=== PATIENT | female | born 1950 | race Caucasian/White ===

== ENCOUNTER 2017-01-14 14:26 | Observation (INO) | payer MEDICARE, MEDICAID ==
[2017-01-14 15:36] LABS: #Basophils 0.1 thou/uL (0.0-0.2); #Eosinphils 0.2 thou/uL (0.0-0.7); #Lymphocytes 2.7 thou/uL (1.20-3.40); #Monocytes 0.4 thou/uL (0.11-0.59); #Neutrophils 5.3 thou/uL (1.40-6.50); %Basophils 0.9 % (0.0-1.0); %Eosinophils 2.4 % (0.0-10.0); %Lymphocytes 31.1 % (21.0-51.0); %Monocytes 4.7 % (0.0-10.0); Hematocrit 36.9 % (36.0-47.0); Mean Platelet Volume 6.7 fL (7.4-10.4); Red Blood Cell (RBC) Count 3.84 mill/uL (4.20-5.40); White Blood Cell (WBC) Count 8.7 thou/uL (4.8-10.8)
[2017-01-14 15:58] LABS: Bilirubin Negative (Negative); Blood, Urine Negative (Negative); Glucose, Urine (Dipstick) Negative (Negative); Ketone, Urine Negative (Negative); Nitrite Negative (Negative); Protein, Urine (Dipstick) Negative (Neg-Trace); Urobilinogen 0.2 mg/dL (0.2-1.0)
[2017-01-14 16:00] LABS: Bacteria/HPF 3+ HPF (None Seen); Hyaline Casts/LPF 0-3 HYALINE CAST LPF (0-3 Hyaline); Squamous Epithelial 0-3 HPF (0-3)
[2017-01-14 16:02] LABS: ALT (SGPT) 30 U/L (8-55); AST (SGOT) 20 U/L (5-34); Acetaminophen Less than 6.0 mcg/mL (10.0-30.0); Alkaline Phosphatase 258 U/L (40-150); Anion Gap 14 mmol/L (10-20); BUN (Urea Nitrogen) 10 mg/dL (9.8-20.1); Bilirubin, Total 0.2 mg/dL (0.2-1.2); CK (CPK) 104 U/L (29-168); Calc. Creatinine Clearance 0 mL/min (70-130); Calcium 9.3 mg/dL (7.8-10.44); Carbon Dioxide 21 mmol/L (23-31); Chloride 109 mmol/L (98-107); Estimated GFR-MDRD 65; Globulin 3.7 g/dL (2.4-3.5); Protein, Total 7.5 g/dL (6.0-8.3); Salicylate Less than 8.0 mg/dL (15.0-30.0)
[2017-01-14 16:04] LABS: RBC/HPF None Seen HPF (0-3)
[2017-01-14 16:08] LABS: Amphetamine Not Detected (NotDetected); Methadone Not Detected (NotDetected); Methamphetamine Not Detected (NotDetected)
[2017-01-15] MEDS ORDERED: PROVENTIL INHALER 6.7 G (200 INHALATIONS) INH PRN (00:52)
[2017-01-15] MEDS ORDERED: clonazePAM 0.5 MG TAB PO PRN (00:52)
[2017-01-15] MEDS ORDERED: Ibuprofen 600 MG TAB PO PRN (00:55)
[2017-01-15] MEDS ORDERED: Acetaminophen 325 MG TAB PO PRN (00:56)
[2017-01-15 01:22] VITALS: BMI 23.8
--- NOTE | 2017-01-15 02:32 | HP-2 ---
DATE OF SERVICE: 01/14/2017 COSIGNER: Ilsa Llamas M.D. DATE OF ADMISSION: 01/14/2017 CODE STATUS: FULL. PRIMARY CARE PHYSICIAN: Pedrito Esposito MD ATTENDING: Ilsa Llamas M.D. PGY1: Dr. Shelbi Crook. HISTORIAN: Patient. SPECIALIST: [facility]. CHIEF COMPLAINT: Drowsy/altered mental status. HISTORY OF PRESENT ILLNESS: A 66-year-old female with past medical history of Schizoaffective disor lata, who presents via EMS after she was difficult to arouse at her apartment at [place]. Earlier this afternoon, her friend, Jorge could not get her to wake up on her couch and called EMS. There was some concern for suicide attempt with clonazepam, but the patient states she was not trying to k ill herself. Patient states she just has felt sleepy over the past couple of days during the day. The patient denies fever or recent illness. The patient does endorse and some confusion with these episodes. The patient also endorses that she gets confused on what medications to take and is unsur e if she is taking the right types of medications. Patient's sister is Susie Gayle, phone numb er [phone]. PAST MEDICAL HISTORY: Schizoaffective disorder, heart failure, diastolic, osteoarthritis, COPD, fat ty liver disease, hypothyroidism, hypertension, gastroesophageal reflux disease. PAST SURGICAL HISTORY: Cholecystectomy, x2. ALLERGIES: PENICILLIN, XANAX, CHANTIX, SERTRALINE, RANITIDINE, DEPAKOTE, BUPROPION. MEDICATIONS: Ziprasidone 80 mg b.i.d., clonazepam 0.5 mg p.o. t.i.d., omeprazole 40 mg daily, gabap entin 100 mg t.i.d., amlodipine 5 mg p.o. daily, lisinopril 20 mg p.o. once daily, levothyroxine 125 mcg daily, fluoxetine 20 mg daily. FAMILY HISTORY: Noncontributory. SOCIAL HISTORY: Smokes 2-3 packs per day for the past 50 plus years over [id number] history. Den ies alcohol use, denies drug use. REVIEW OF SYSTEMS: General: Denies fevers and chills. Cardiovascular: Denies chest pain, palpita tions. GI: Denies nausea and vomiting. Endorses diarrhea. Genitourinary: Denies incontinence, d enies dysuria. Endorses polyuria. Neurologic: Denies weakness, numbness. Psychiatric: Currently , denies anxiety and depression. Denies SI. PHYSICAL EXAMINATION: VITAL SIGNS: Blood pressure 136/96. Pulse 81, respiratory rate 16, T-max 97.7, pulse ox 96% on marleni m air. GENERAL: Alert and oriented x3, in no apparent distress. Well-developed, well-nourished, appropria tely interactive. HEENT: Pupils equal, round, and reactive to light and accommodation. Extraocular muscles intact. Conjunctivae within normal limits. NECK: No lymphadenopathy, no thyromegaly, no bruits. CARDIOVASCULAR: Regular rate and rhythm. No murmurs, no gallops, 2+ radial and pedal pulses. RESPIRATORY: Normal effort, no retractions. Clear to auscultation bilaterally. SKIN: Warm and dry. ABDOMEN: Soft, nontender to palpation. Positive bowel sounds. No masses or distention. EXTREMITIES: No clubbing or cyanosis. MUSCULOSKELETAL: Structure within normal limits. NEUROLOGIC: No focal deficits. GCS 15. PSYCHIATRIC: Appropriate. LABORATORY DATA: CBC: White blood cell count 8.7, hemoglobin 12.3, hematocrit 36.9, platelets 282. CMP: Sodium 140, potassium 3.5, chloride 109, bicarbonate 21, BUN 10, creatinine 0.87, glucose 116, calcium 9.3, AST 20, ALT 30, alkaline phosphatase 258, total bilirubin 0.2, TSH 0.1524. UA positive for leukocyte esterase, white blood cells 4-6, bacteria 3+, negative for blood, protein, ketones, glucose, and red blood cells. CK 104. EKG, QTC 527. ASSESSMENT AND PLAN: A 66-year-old female with past medical history of schizoaffective disorder, ad mitted for observation due to toxic encephalopathy likely from antipsychotic medication versus polyp harmacy. We will watch the patient on observation. 1. Toxic encephalopathy secondary to antipsychotic medication likely ziprasidone versus polypharmac y. We will observation overnight. Plan to decrease the ziprasidone down to 60 mg in the morning an d keep the 80 mg at night. We will hold the quetiapine at this time. 2. Schizoaffective disorder. Ziprasidone as above, quetiapine held. We will continue the clonazep am 0.5 mg b.i.d. for patient's anxiety. 3. Iatrogenic hyperthyroidism. The patient is normally hypothyroid on 125 mcg of levothyroxine per day. Patient has a low TSH and as a result, we will decrease patient's levothyroxine to 112 mcg pe r day. 4. Anxiety. Continue fluoxetine 20 mg daily at this time and continue clonazepam 0.5 mg. We will decrease to b.i.d. at this time. 5. Chronic obstructive pulmonary disease. We will continue patient's home medications of albuterol and Spiriva. 6. Hypertension. We will continue patient's home medications of amlodipine 2.5 mg p.o. daily and L isinopril 20 mg daily. 7. Prolonged QTC. Patient is currently on antipsychotic medication, antidepressants, PPI, and albu terol, which all can prolong QTC. We will continue to monitor. PPI was held. The patient was not provided with antinausea medications p.r.n. such as Zofran, which can also prolong QTC. 8. Asymptomatic bacteriuria. The patient is not having symptoms. We will not treat with antibioti cs at this time. DISPOSITION AND LENGTH OF STAY: One day. Symptomatic medication will be provided. History and physical exam, as well as management, will be discussed with Dr. Llamas.
[2017-01-15 05:16] LABS: #Eosinphils 0.2 thou/uL (0.0-0.7); #Lymphocytes 1.8 thou/uL (1.20-3.40); #Monocytes 0.5 thou/uL (0.11-0.59); #Neutrophils 5.4 thou/uL (1.40-6.50); %Basophils 0.6 % (0.0-1.0); %Eosinophils 2.4 % (0.0-10.0); %Lymphocytes 23.1 % (21.0-51.0); %Monocytes 6.2 % (0.0-10.0); Hematocrit 38.5 % (36.0-47.0); Mean Platelet Volume 6.9 fL (7.4-10.4); Red Blood Cell (RBC) Count 3.99 mill/uL (4.20-5.40); White Blood Cell (WBC) Count 7.9 thou/uL (4.8-10.8)
[2017-01-15 05:22] VITALS: TEMP 98.6
[2017-01-15] MEDS ORDERED: Levothyroxine Sodium 112 MCG TAB PO SCH (06:00)
[2017-01-15 06:03] LABS: Anion Gap 12 mmol/L (10-20); BUN (Urea Nitrogen) 10 mg/dL (9.8-20.1); Calc. Creatinine Clearance 62 mL/min (70-130); Calcium 9.7 mg/dL (7.8-10.44); Carbon Dioxide 24 mmol/L (23-31); Chloride 106 mmol/L (98-107); Estimated GFR-MDRD 70
[2017-01-15] MEDS ORDERED: Ipratropium Bromide 2.5 ml Neb NEB SCH (07:00)
--- NOTE | 2017-01-15 07:14 | PDOC.FM ---
- Subjective Subjective: Patient is doing well this morning. She is AOx3 and seems to have a pretty good grasp of her medication use. Denies depression and SI. Reports that the last medication that was added to her regimen at [facility] in December was Topimax. States she has been on Geodon for years. Denies urgency, frequency, and dysuria. - Objective MAR Reviewed: Yes Vital Signs & Weight: Vital Signs (12 hours) Temp Pulse Resp BP Pulse Ox 01/15/17 04:46 98.6 F 76 18 138/83 94 L 01/15/17 01: 98.4 F 78 16 152/69 H 95 Weight Weight 59.148 kg I&O: 01/14/17 01/15/17 01/16/17 06:59 06:59 06:59 Intake Total 720 Output Total 400 Balance 320 Result Diagrams: 01/15/17 04:51 01/15/17 04:51 <Maria De Jesus Moore - Last Filed: 01/15/17 07:13> - Objective Vital Signs & Weight: Vital Signs (12 hours) Temp Pulse Resp BP Pulse Ox 01/15/17 08:39 98.6 F 84 16 01/15/17 08:09 84 16 01/15/17 07:37 98.6 F 77 16 141/88 H 95 01/15/17 04:46 98.6 F 76 18 138/83 94 L Weight Weight 59.148 kg I&O: 01/14/17 01/15/17 01/16/17 06:59 06:59 06:59 Intake Total 720 Output Total 400 Balance 320 Result Diagrams: 01/15/17 04:51 01/15/17 04:51 <Ilsa Llamas - Last Filed: 01/15/17 14:35> Phys Exam - Physical Examination Constitutional: NAD HEENT: PERRLA, moist MMs Neck: no nodes no thyromegaly distant lung sounds Cardiovascular: RRR, no significant murmur Gastrointestinal: soft, non-tender, no distention, positive bowel sounds Musculoskeletal: no edema, pulses present Neurological: non-focal, moves all 4 limbs Psychiatric: A&O x 3 <Maria De Jesus Moore - Last Filed: 01/15/17 07:13> Dx/Plan (1) Polypharmacy Code(s): Z79.899 - OTHER [employer] (CURRENT) DRUG THERAPY Status: Acute (2) Schizoaffective disorder Code(s): F25.9 - SCHIZOAFFECTIVE DISORDER, UNSPECIFIED Status: Chronic Qualifiers: Schizoaffective disorder type: bipolar Qualified Code(s): F25.0 - Schizoaffective disorder, bipolar type (3) Hypothyroidism Code(s): E03.9 - HYPOTHYROIDISM, UNSPECIFIED Status: Chronic (4) Elevated liver enzymes Code(s): R74.8 - ABNORMAL LEVELS OF OTHER SERUM ENZYMES Status: Acute (5) Urinary tract infection Status: Acute (6) COPD (chronic obstructive pulmonary disease) Status: Acute (7) Hypertension Code(s): I10 - ESSENTIAL (PRIMARY) HYPERTENSION Status: Acute - Plan Plan: Toxic Encephalopathy 2/2 Polypharmacy - likely due to the added medication Topimax, will discontinue this medication - decreased Klonipin to BID dosing - Geodon 60mg AM, and 80mg PM - Continue Fluoxetine - Hold quetiapine until confirmed med reconciliation - Will coordinate with [facility] to have her seen in 1 week for follow up after discharge - Patient stable, likely d/c today after medications have been adjusted with close f/u Schizoaffective DO - Continue regimen as discussed above Hypothyroidism - TSH was low, have decreased levothyroxine to 112mcg - will need repeat TSH in 8 weeks Hypertension - continue home Lisinopril and Amlodipine COPD - continue home meds UTI - asymptomatic, urine culture pending - will hold off on treatment for now and wait for culture GERD - home meds OA - home meds <Maria De Jesus Moore - Last Filed: 01/15/17 07:13> Attending Addendum - Attending Addendum I personally evaluated the patient and discussed the management with Dr. Moore. I agree with the History, Examination, Assessment and Plan documented above with any addition or exceptions noted below. The patient is doing better this morning after sleeping overnight and holding some of her psych meds. She will be discharged and f/u with [facility] for adjustment of medications. <Ilsa Llamas - Last Filed: 01/15/17 14:35>
[2017-01-15 07:45] VITALS: BP 141/88
[2017-01-15] MEDS ORDERED: Folic Acid 1 MG TAB PO SCH (09:00)
[2017-01-15] MEDS ORDERED: Calcium Carbonate + Vit D 1 TAB PO SCH (09:00)
[2017-01-15] MEDS ORDERED: Lisinopril 20 MG TAB PO SCH (09:00)
--- NOTE | 2017-01-15 19:32 | HP ---
DATE OF SERVICE: 01/15/2017 CHIEF COMPLAINT: Altered mental status, drowsy. HISTORY OF PRESENT ILLNESS: The patient is a 66-year-old female with a past medical histo ry of schizoaffective disorder, who presented to the ER after a friend had difficulty trying to arou se her at her [place] apartment. At first, there was a concern for suicide attempt, but the patie nt notes that that is not what happened. The patient stated that she has been having difficulty sle eping and she has been taking all of her medications that are prescribed through [facility], but some of t hem make her sleepy during the day, which makes it difficult for her to sleep at night. She states her whole sleep-wake cycle is affected. The patient had some confusion when she first arrived, and it is still unclear if she is taking her medications as prescribed. Overnight, the patient was able to rest some. She is alert and oriented x4 at this time and is feeling back to her baseline. For the full history of the patient, please see the resident's dictation. PHYSICAL EXAMINATION: VITAL SIGNS: Temperature 98.6, pulse 77, respiration rate 16, O2 sat 95% on room air, blood pressur e 141/88. GENERAL: The patient is awake, alert, and oriented x4, and in no acute distress. HEENT: Oropharynx and nasopharynx are without erythema or exudate. NECK: Supple without lymphadenopathy, thyromegaly, or bruits. EYES: Pupils are equal, round, reactive to light and accommodation. Extraocular muscles intact. CARDIOVASCULAR: Regular rate and rhythm without murmurs, gallops, or rubs. LUNGS: Clear to auscultation bilaterally without no wheezing or rhonchi. ABDOMEN: Soft, nontender, nondistended with bowel sounds present. EXTREMITIES: There is no clubbing, cyanosis, or edema. MUSCULOSKELETAL: Patient has full range of motion of all extremities. Muscle strength is 5/5. NEUROLOGIC: Cranial nerves II-XII are grossly intact. PSYCHIATRIC: The patient does exhibit some tangential thought processes, but is able to be redirect ed, and for the most part, answers questions appropriately. LABORATORY: 1. CBC: WBC 7.9, hemoglobin 12.9, hematocrit 38.5, platelet count 287. 2. BMP: Sodium 138, potassium 3.6, chloride 106, bicarbonate 24, BUN 10, creatinine 0.81, glucose 97, calcium 9.7. 3. TSH 0.1524. 4. Urinalysis significant for small leukocyte esterase, white blood cells 4-6, bacteria 3+. 5. UDS negative, SDS negative. 6. EKG shows prolonged QTC of 527. ASSESSMENT AND PLAN: 1. Toxic encephalopathy: This is likely secondary to all of her many antipsychotic medications. W steve will try to cut back some of these medications to decrease her somnolence. She will also need to follow up with [facility] as an outpatient. 2. Schizoaffective disorder: Ziprasidone has been decreased and Seroquel is being held. Patient h as displayed some anxiety here, so the clonazepam is being continued for the time being. 3. Iatrogenic hyperthyroidism: Patient historically has hypothyroidism. However, with her low TSH , it appears that she is taking too much thyroid medication. We will decrease her dose. 4. Anxiety as mentioned above. 5. Prolonged QTC: We are adjusting the patient's antipsychotic medications to try to help with thi s. Her PPI will also be held. 6. Asymptomatic bacteriuria: Though the patient has bacteria in her urine, she denies any burning with urination, any increased urinary frequency or urgency or hematuria. Therefore, we will not beau at with antibiotics. 6. Please see the resident's dictation for the full history, physical, assessment and plan.
--- NOTE | 2017-01-15 19:40 | DIS-2 ---
DATE OF ADMISSION: 01/14/2017 DATE OF DISCHARGE: 01/15/2017 RESIDENT: Maria De Jesus Moore DO. ADMITTING ATTENDING: Ilsa Llamas M.D. DISCHARGE ATTENDING: Ilsa Llamas M.D. CONSULTATIONS: None. PROCEDURES: None. PRIMARY DIAGNOSIS: Toxic encephalopathy secondary to likely polypharmacy versus drug side effects. SECONDARY DIAGNOSES: 1. Schizoaffective disorder. 2. Hypothyroidism. 3. Anxiety. 4. Chronic obstructive pulmonary disease. 5. Hypertension. 6. Asymptomatic bacteriuria. DISCHARGE MEDICATIONS: 1. Ibuprofen 800 mg p.o. q.8 hours p.r.n. pain. 2. Tylenol with codeine #3 one tablet p.o. q.8 hours p.r.n. pain. 3. Spiriva inhaler 18 mcg inhaled daily. 4. MiraLax 17 grams p.o. daily. 5. Prozac 20 mg p.o. daily. 6. Calcium supplement 1 tablet p.o. daily. 7. Amlodipine 2.5 mg p.o. daily. 8. Omeprazole 40 mg p.o. daily. 9. Gabapentin 100 mg p.o. t.i.d. 10. Folic acid 1 mg p.o. daily. 11. Albuterol 2.5 mg nebulized q.4 hours p.r.n. 12. ProAir 2 puffs inhaled q.4 hours p.r.n. shortness of breath. 13. Clonazepam 0.5 mg p.o. b.i.d. 14. Geodon 60 mg p.o. q.a.m. and 80 mg p.o. at bedtime. 15. Levothyroxine sodium 112 mcg p.o. q.a.m. DISCONTINUED MEDICATIONS: 1. Geodon 80 mg p.o. b.i.d. 2. Levothyroxine sodium 125 mcg p.o. daily. 3. Topamax 200 mg p.o. at bedtime. 4. Clonazepam 0.5mg p.o. t.i.d HISTORY OF PRESENT ILLNESS AND HOSPITAL COURSE: The patient is a 66-year-old female with known schizoaffective disorder, who presented via EMS after she was difficult to arouse at her apartment at [place]. There was initial concern for suicide attempt with clonazepam, but patient denied and reports she had just felt very sleepy over the past couple of days during the day. The patient admits to getting confused on what medications to take and is unsure of what medications she is supposed to be on for her schizoaffective disorder. The patient sees [facility]. Dr. Villalba and reports her last visit in December, she was given Topamax. She states she has been on Geodon for quite sometime and has not had any side effects. It was thought that her sleepiness could be due to polypharmacy or a side effect of Topamax. Topamax was discontinued and to minimize risk of polypharmacy, medications were adjusted including Geodon 60 mg in the morning and 80 mg at night and clonazepam twice daily instead of 3 times a day. The patient was alert and oriented x3 and had logical thought process, although occasionally did have far-out thoughts. The patient was also found to have a low TSH at 0.1524, so her levothyroxine was adjusted to 112 mcg instead of the 125 mcg. The patient is to follow up closely with [facility] for medication management and with her PCP, Dr. Pedrito Esposito at [facility] to assess symptoms on new thyroid dosage and repeat TSH in 8 weeks. DISPOSITION: Stable. DISCHARGE INSTRUCTIONS: 1. Location: Home. 2. Diet: Regular. 3. Activity: As tolerated. 4. Followup: With Dr. Pedrito Esposito in 1 week and , Dr. Villalba in 1 week. [facility]
--- NOTE | 2017-01-21 12:13 | EKG ---
Test Reason : Blood Pressure : / mmHG Vent. Rate : 069 BPM Atrial Rate : 069 BPM P-R Int : 162 ms QRS Dur : 078 ms QT Int : 492 ms P-R-T Axes : 037 -06 044 degrees QTc Int : 527 ms Normal sinus rhythm Nonspecific T wave abnormality Prolonged QT Nonspecific ST-T segment abnormalities Abnormal ECG Confirmed by OSWALDO BOLTON ([id number]), restaurant expeditor GOGO WILSON ([id number]) on 01/21/2017 12:12:43 PM Referred By: Confirmed By:OSWALDO BOLTON
== END 2017-01-15 12:29 | disposition home or self-care (01) ==
LOC: ERS 14:26 → 2SW 01-15 00:20
PROVIDERS: ADMIT Family Medicine; ATTEND Family Medicine
DX: G92 Toxic encephalopathy (principal); R82.71 Bacteriuria; F25.9 Schizoaffective disorder, unspecified; F41.9 Anxiety disorder, unspecified; E03.9 Hypothyroidism, unspecified; J44.9 Chronic obstructive pulmonary disease, unspecified; F17.210 Nicotine dependence, cigarettes, uncomplicated; I50.30 Unspecified diastolic (congestive) heart failure; M19.90 Unspecified osteoarthritis, unspecified site; K21.9 Gastro-esophageal reflux disease without esophagitis; I11.0 Hypertensive heart disease with heart failure; Z88.0 Allergy status to penicillin; Z88.8 Allergy status to other drugs, medicaments and biological substances; Z79.1 Long term (current) use of non-steroidal anti-inflammatories (NSAID); Z79.891 Long term (current) use of opiate analgesic; Z79.899 Other long term (current) drug therapy; Z90.49 Acquired absence of other specified parts of digestive tract; Z98.891 History of uterine scar from previous surgery
CPT/HCPCS: 51701; 80048; 80306; 80307 ×2; 82550; 85025; 87086; 93005; 94640; 99285; G0378; 36415; 80053; 81003; 81015; 84443; A4353; J7644

== ENCOUNTER 2017-01-25 22:32 | Emergency (ER) | payer MEDICARE, OTHER ==
[2017-01-25] MEDS ORDERED: Nitroglycerin 2% Ointment 1 INCH/1 GM Packet ONE (22:54)
[2017-01-25 23:03] LABS: #Basophils 0.1 thou/uL (0.0-0.2); #Eosinphils 0.2 thou/uL (0.0-0.7); #Lymphocytes 2.6 thou/uL (1.20-3.40); #Monocytes 0.6 thou/uL (0.11-0.59); #Neutrophils 5.5 thou/uL (1.40-6.50); %Basophils 0.7 % (0.0-1.0); %Eosinophils 2.4 % (0.0-10.0); %Lymphocytes 28.7 % (21.0-51.0); %Monocytes 6.6 % (0.0-10.0); Hematocrit 34.9 % (36.0-47.0); Mean Platelet Volume 6.7 fL (7.4-10.4)
--- NOTE | 2017-01-25 23:06 | RAD ---
PORTABLE AP CHEST X-RAY 01/25/17 HISTORY: Chest pain which started less than 30 minutes ago. Patient states it felt like someone was squeezing chest. Pain lasted for five minutes. Patient also reports shortness of breath and nausea. COMPARISON: 09/23/16. The cardiac silhouette and pulmonary vasculature are within normal limits. There is ectasia and tort uosity of the thoracic aorta. There is left convexed curvature of the thoracic spine. Lungs appear c lear. There has been no interval change from prior study. IMPRESSION: Stable chest without evidence of an acute cardiopulmonary process. POS: [facility]
[2017-01-25 23:24] LABS: ALT (SGPT) 32 U/L (8-55); AST (SGOT) 20 U/L (5-34); Alkaline Phosphatase 246 U/L (40-150); Anion Gap 14 mmol/L (10-20); BUN (Urea Nitrogen) 9 mg/dL (9.8-20.1); Bilirubin, Total 0.2 mg/dL (0.2-1.2); CK (CPK) 148 U/L (29-168); Calc. Creatinine Clearance 0 mL/min (70-130); Calcium 9.5 mg/dL (7.8-10.44); Carbon Dioxide 24 mmol/L (23-31); Chloride 103 mmol/L (98-107); Estimated GFR-MDRD 58; Globulin 3.7 g/dL (2.4-3.5); Lipase 14 U/L (8-78); Protein, Total 7.5 g/dL (6.0-8.3)
[2017-01-25 23:28] LABS: Troponin I Less than 0.010 ng/mL (< 0.028)
== END 2017-01-26 01:15 | disposition short-term general hospital (02) ==
LOC: ERS 22:32
DX: R07.9 Chest pain, unspecified (principal); I10 Essential (primary) hypertension; J43.9 Emphysema, unspecified; M41.9 Scoliosis, unspecified; F41.9 Anxiety disorder, unspecified; F31.9 Bipolar disorder, unspecified; F17.290 Nicotine dependence, other tobacco product, uncomplicated; Z79.899 Other long term (current) drug therapy
CPT/HCPCS: 71010; 80053; 82553; 83690; 84484; 85025; 93005; 94760

== ENCOUNTER 2017-02-01 20:00 | Emergency (ER) | payer MEDICARE, OTHER ==
[2017-02-01 21:02] LABS: Bilirubin Negative (Negative); Blood, Urine Negative (Negative); Glucose, Urine (Dipstick) Negative (Negative); Ketone, Urine Negative (Negative); Nitrite Negative (Negative); Protein, Urine (Dipstick) Negative (Neg-Trace); Urobilinogen 0.2 mg/dL (0.2-1.0)
[2017-02-01 21:09] LABS: #Basophils 0.1 thou/uL (0.0-0.2); #Eosinphils 0.3 thou/uL (0.0-0.7); #Lymphocytes 3.1 thou/uL (1.20-3.40); #Monocytes 0.7 thou/uL (0.11-0.59); #Neutrophils 4.5 thou/uL (1.40-6.50); %Basophils 1.1 % (0.0-1.0); %Eosinophils 3.2 % (0.0-10.0); %Lymphocytes 35.8 % (21.0-51.0); %Monocytes 7.9 % (0.0-10.0); Hematocrit 35.2 % (36.0-47.0); Mean Platelet Volume 6.8 fL (7.4-10.4); Red Blood Cell (RBC) Count 3.65 mill/uL (4.20-5.40); White Blood Cell (WBC) Count 8.6 thou/uL (4.8-10.8)
[2017-02-01 21:09] LABS: Bacteria/HPF None Seen HPF (None Seen); Hyaline Casts/LPF 0-3 HYALINE CAST LPF (0-3 Hyaline); Squamous Epithelial 0-3 HPF (0-3)
[2017-02-01 21:34] LABS: ALT (SGPT) 20 U/L (8-55); AST (SGOT) 18 U/L (5-34); Alkaline Phosphatase 245 U/L (40-150); Anion Gap 13 mmol/L (10-20); BUN (Urea Nitrogen) 12 mg/dL (9.8-20.1); Bilirubin, Total 0.3 mg/dL (0.2-1.2); Calc. Creatinine Clearance 0 mL/min (70-130); Calcium 9.7 mg/dL (7.8-10.44); Carbon Dioxide 26 mmol/L (23-31); Chloride 102 mmol/L (98-107); Estimated GFR-MDRD 64; Globulin 4.1 g/dL (2.4-3.5); Lipase 22 U/L (8-78); Protein, Total 8.2 g/dL (6.0-8.3)
--- NOTE | 2017-02-01 22:36 | RAD ---
CHEST ONE VIEW ABDOMEN TWO VIEWS 02/01/17 HISTORY: Abdominal pain. FINDINGS/IMPRESSION: Comparison made with the chest radiograph of 01/25/17. The heart size is borderline. The aorta is tortuous. The lungs are expanded without focal areas of c onsolidation, pneumothorax, leona pulmonary edema, or pleural effusions. There are postop changes o f cholecystectomy. No free air or differential fluid levels are seen. The bowel gas pattern is unrem arkable. There is fecal material in the colon. No suspicious calcifications are noted. There are deg enerative changes in the spine. POS: [facility]
== END 2017-02-01 23:18 | disposition home or self-care (01) ==
LOC: ERS 20:00
DX: M79.89 Other specified soft tissue disorders (principal); I10 Essential (primary) hypertension; J44.9 Chronic obstructive pulmonary disease, unspecified; M41.9 Scoliosis, unspecified; F41.9 Anxiety disorder, unspecified; F31.9 Bipolar disorder, unspecified; Z87.891 Personal history of nicotine dependence
CPT/HCPCS: 36415; 74022; 80053; 81003; 81015; 83690; 85025

== ENCOUNTER 2017-02-28 10:40 | Emergency (ER) | payer MEDICARE, OTHER ==
--- NOTE | 2017-02-28 12:17 | RAD ---
PORTABLE CHEST: 02/28/2017 PROVIDED CLINICAL HISTORY: Dyspnea. COMPARISON: 01/25/2017 FINDINGS: The cardiac and mediastinal silhouette are unchanged in appearance. No focal consolidation, pleural fluid, or pneumothorax apparent. IMPRESSION: No evidence for an acute cardiopulmonary process. POS: [facility]
[2017-02-28 12:20] LABS: Bilirubin Negative (Negative); Blood, Urine Negative (Negative); Glucose, Urine (Dipstick) Negative (Negative); Ketone, Urine Negative (Negative); Nitrite Negative (Negative); Protein, Urine (Dipstick) Negative (Neg-Trace); Urobilinogen 0.2 mg/dL (0.2-1.0)
[2017-02-28 12:46] LABS: #Eosinphils 0.1 thou/uL (0.0-0.7); #Lymphocytes 2.5 thou/uL (1.20-3.40); #Monocytes 0.7 thou/uL (0.11-0.59); #Neutrophils 6.4 thou/uL (1.40-6.50); %Basophils 0.5 % (0.0-1.0); %Eosinophils 1.4 % (0.0-10.0); %Lymphocytes 25.9 % (21.0-51.0); %Monocytes 6.8 % (0.0-10.0); Hematocrit 32.2 % (36.0-47.0); Mean Platelet Volume 6.7 fL (7.4-10.4); White Blood Cell (WBC) Count 9.7 thou/uL (4.8-10.8)
[2017-02-28 13:04] LABS: ALT (SGPT) 21 U/L (8-55); AST (SGOT) 23 U/L (5-34); Alkaline Phosphatase 184 U/L (40-150); Anion Gap 13 mmol/L (10-20); BUN (Urea Nitrogen) 9 mg/dL (9.8-20.1); Bilirubin, Total 0.2 mg/dL (0.2-1.2); Calc. Creatinine Clearance 0 mL/min (70-130); Calcium 9.3 mg/dL (7.8-10.44); Carbon Dioxide 24 mmol/L (23-31); Chloride 103 mmol/L (98-107); Estimated GFR-MDRD 70; Globulin 3.5 g/dL (2.4-3.5); Protein, Total 7.2 g/dL (6.0-8.3)
--- NOTE | 2017-02-28 13:38 | CT ---
CT ABDOMEN AND PELVIS PERFORMED WITH CONTRAST ENHANCEMENT: HISTORY: Abdominal pain. Intermittent rectal bleeding for two to three months. Pain over lower abdomen. Hi story of hepatitis C. Completed recent course of antibiotics for UTI. COMPARISON: CT examination from 03/03/2015. FINDINGS: ABDOMEN: The lung bases show chronic appearing change. There are fatty changes of the liver. The liver measures approximately 17 cm. The spleen and pancr eas regions appear unremarkable. The gallbladder has been removed. The right and left adrenal glands are normal in appearance. There are hypodensities involving both kidneys, which are similar to the previous exam and appear to represent cysts. No obstruction. No significant periaortic or mesenteric lymphadenopathy. PELVIS: Sigmoid diverticulosis is noted. There is some dilatation of some of the small bowel of th e more distal ileum, with fecalization of the bowel contents and, just distal to this area, the smal l bowel shows an area of some mild bowel wall thickening and edema. This is proximal to the actual terminal ileum region. No free air. No signs of any portal venous gas. The appendix is normal in appearance. No free fluid is seen within the pelvis. The bladder is distended. IMPRESSION: Focally dilated area of small bowel. This is in the distal ileum. there is fecalization of bowel c ontents and, just distal to this area, there is bowel wall thickening or edema. This is not truly a t the level of the terminal ileum. It raises the possibility of an ileitis. The possibility that t here is some type of ischemic bowel change cannot be definitely excluded. An inflammatory ileitis, such as seen Crohns, would be a possibility. The findings were discussed with Dr. Lomax. 2. Sigmoid diverticulosis. 3. Fatty changes of the liver. 4. Small hiatal hernia. 5. Chronic lung change. POS: [facility]
== END 2017-02-28 15:10 | disposition home or self-care (01) ==
LOC: ERS 10:40
DX: K62.5 Hemorrhage of anus and rectum (principal); I10 Essential (primary) hypertension; K21.9 Gastro-esophageal reflux disease without esophagitis; J44.9 Chronic obstructive pulmonary disease, unspecified; F31.9 Bipolar disorder, unspecified; F41.9 Anxiety disorder, unspecified; Z87.891 Personal history of nicotine dependence; Z79.899 Other long term (current) drug therapy
CPT/HCPCS: 71010; 74177; 80053; 81003; 82274; 85025; 86850; 86900; 86901; 94640; 94760; A4353; J7620

== ENCOUNTER 2017-02-28 18:35 | Emergency (ER) | payer MEDICARE, OTHER | END 2017-02-28 20:08 | disposition home or self-care (01) | LOC: ERS 18:35 | DX: R10.30 Lower abdominal pain, unspecified (principal); K21.9 Gastro-esophageal reflux disease without esophagitis; I10 Essential (primary) hypertension; J44.9 Chronic obstructive pulmonary disease, unspecified; M41.9 Scoliosis, unspecified; F41.9 Anxiety disorder, unspecified; F31.9 Bipolar disorder, unspecified; Z87.891 Personal history of nicotine dependence | CPT/HCPCS: 36415; 51701; 71010; 74177; 80053; 81003; 82274; 85025; 86850; 86900; 86901; 94640; 94760; 96360; 99284; A4353; J7620 ==

== ENCOUNTER 2017-04-27 13:03 | Emergency (ER) | payer MEDICARE, MEDICAID ==
[2017-04-27 13:31] LABS: #Basophils 0.1 thou/uL (0.0-0.2); #Eosinphils 0.1 thou/uL (0.0-0.7); #Lymphocytes 2.2 thou/uL (1.20-3.40); #Monocytes 0.5 thou/uL (0.11-0.59); #Neutrophils 6.7 thou/uL (1.40-6.50); %Basophils 0.9 % (0.0-1.0); %Eosinophils 1.1 % (0.0-10.0); %Lymphocytes 22.6 % (21.0-51.0); %Monocytes 5.6 % (0.0-10.0); %Neutrophils 69.8 % (42.0-75.0); Hemoglobin 10.4 g/dL (12.0-16.0); Mean Corpuscular HGB CONC 32.9 g/dL (32.0-36.0); Mean Corpuscular Hemoglobin 30.4 pg (27.0-31.0); Mean Corpuscular Volume 92.4 fl (81.0-99.0); Mean Platelet Volume 6.6 fL (7.4-10.4); Platelet Count 367 thou/uL (130-400); RBC Distribution Width 13.9 % (11.5-14.5); Red Blood Cell (RBC) Count 3.41 mill/uL (4.20-5.40); White Blood Cell (WBC) Count 9.6 thou/uL (4.8-10.8)
--- NOTE | 2017-04-27 13:52 | RAD ---
PORTABLE CHEST: Date: 04/27/17 PROVIDED CLINICAL HISTORY: Cough. FINDINGS: Comparison with 02/28/17. Cardiac and mediastinal silhouette is within normal limits. Lungs are free of significant opacity. No pleural fluid or pneumothorax apparent. IMPRESSION: No evidence for acute cardiopulmonary process. POS: [facility]
[2017-04-27 14:05] LABS: ALT (SGPT) 26 U/L (8-55); AST (SGOT) 26 U/L (5-34); Albumin 3.5 g/dL (3.4-4.8); Alkaline Phosphatase 276 U/L (40-150); Anion Gap 12 mmol/L (10-20); BUN (Urea Nitrogen) 14 mg/dL (9.8-20.1); Bilirubin, Total 0.3 mg/dL (0.2-1.2); CK (CPK) 49 U/L (29-168); Calc. Creatinine Clearance 0 mL/min (70-130); Carbon Dioxide 24 mmol/L (23-31); Chloride 101 mmol/L (98-107); Estimated GFR-MDRD 55; Globulin 3.6 g/dL (2.4-3.5); Glucose 179 mg/dL (80-115); Lipase 12 U/L (8-78); Potassium 3.3 mmol/L (3.5-5.1); Protein, Total 7.1 g/dL (6.0-8.3); Sodium 134 mmol/L (136-145)
[2017-04-27 14:06] LABS: Troponin I Less than 0.010 ng/mL (< 0.028)
[2017-04-27 14:37] LABS: Clarity Clear (Clear); Specific Gravity, Urine 1.015 (1.002-1.036)
[2017-04-27 14:38] LABS: Bilirubin Negative (Negative); Blood, Urine Negative (Negative); Glucose, Urine (Dipstick) Negative (Negative); Leukocyte Negative (Negative); Nitrite Negative (Negative); Protein, Urine (Dipstick) Negative (Neg-Trace); Urobilinogen 0.2 mg/dL (0.2-1.0); pH, Urine 6.5 (5.0-9.0)
== END 2017-04-27 16:00 | disposition home or self-care (01) ==
LOC: ERS 13:03
DX: R53.1 Weakness (principal); K21.9 Gastro-esophageal reflux disease without esophagitis; I10 Essential (primary) hypertension; Z87.891 Personal history of nicotine dependence; Z79.899 Other long term (current) drug therapy
CPT/HCPCS: 51701; 71045; 80053; 81003; 82553; 83690; 84484; 85025; 93005; 96360; A4353

== ENCOUNTER 2017-05-15 23:04 | Inpatient (IN) | payer MEDICARE, OTHER ==
--- NOTE | 2017-05-15 23:43 | RAD ---
PORTABLE CHEST: Comparison: 04-27-17 FINDINGS: Heart size is within normal limits. There are atherosclerotic changes of the aorta. The lungs are seth ar of any infiltrative process. IMPRESSION: No active intrathoracic disease. POS: [facility]
[2017-05-15] MEDS ORDERED: methylPREDNISolone Sod Succ/PF 125 MG/2 ML VIAL ONE (23:46)
[2017-05-16 00:13] LABS: #Eosinphils 0.2 thou/uL (0.0-0.7); #Lymphocytes 2.5 thou/uL (1.20-3.40); #Monocytes 0.6 thou/uL (0.11-0.59); #Neutrophils 5.6 thou/uL (1.40-6.50); %Basophils 0.5 % (0.0-1.0); %Lymphocytes 28.4 % (21.0-51.0); %Monocytes 7.1 % (0.0-10.0); %Neutrophils 62.1 % (42.0-75.0); Hemoglobin 10.2 g/dL (12.0-16.0); Mean Corpuscular HGB CONC 33.9 g/dL (32.0-36.0); Mean Corpuscular Hemoglobin 30.3 pg (27.0-31.0); Mean Corpuscular Volume 89.4 fl (81.0-99.0); Mean Platelet Volume 6.5 fL (7.4-10.4); Platelet Count 330 thou/uL (130-400); RBC Distribution Width 14.3 % (11.5-14.5); Red Blood Cell (RBC) Count 3.37 mill/uL (4.20-5.40); White Blood Cell (WBC) Count 8.9 thou/uL (4.8-10.8)
[2017-05-16 00:19] LABS: Prothrombin Time 12.7 SEC (12.0-14.7)
[2017-05-16 00:20] LABS: D-Dimer Test 0.79 *mcg/mL (0.27-0.43)
[2017-05-16 00:36] LABS: ALT (SGPT) 25 U/L (8-55); AST (SGOT) 22 U/L (5-34); Albumin 4.1 g/dL (3.4-4.8); Alkaline Phosphatase 275 U/L (40-150); Anion Gap 13 mmol/L (10-20); BUN (Urea Nitrogen) 9 mg/dL (9.8-20.1); Bilirubin, Total 0.2 mg/dL (0.2-1.2); Calc. Creatinine Clearance 0 mL/min (70-130); Calcium 10.1 mg/dL (7.8-10.44); Carbon Dioxide 29 mmol/L (23-31); Chloride 95 mmol/L (98-107); Estimated GFR-MDRD 60; Glucose 126 mg/dL (80-115); Magnesium 1.8 mg/dL (1.6-2.6); Protein, Total 8.1 g/dL (6.0-8.3); Sodium 134 mmol/L (136-145)
[2017-05-16 00:41] LABS: CKMB 2.5 ng/mL (0-6.6); Troponin I Less than 0.010 ng/mL (< 0.028)
[2017-05-16 00:42] LABS: Potassium 2.9 mmol/L (3.5-5.1)
[2017-05-16] MEDS ORDERED: Ondansetron HCl/PF 4 MG/2 ML Vial ONE (02:18)
[2017-05-16] MEDS ORDERED: Potassium Chloride 20 MEQ TAB ONE (02:18)
[2017-05-16] MEDS ORDERED: Ondansetron ODT 4 MG TAB PO PRN (03:06)
[2017-05-16] MEDS ORDERED: Mag-Al 1200 mg/1200 mg/30 ML UDCUP PO PRN (03:06)
[2017-05-16] MEDS ORDERED: Acetaminophen 325 MG TAB PO PRN (03:06)
[2017-05-16] MEDS ORDERED: Milk Of Magnesia 30 ML UDCUP PO PRN (03:09)
[2017-05-16] MEDS ORDERED: Albuterol Sulfate 2.5 mg/3 ml Neb NEB PRN (03:09)
[2017-05-16] MEDS ORDERED: PROVENTIL INHALER 6.7 G (200 INHALATIONS) INH PRN (03:27)
[2017-05-16] MEDS ORDERED: clonazePAM 0.5 MG TAB PO PRN (03:27)
[2017-05-16 04:11] LABS: Lactic Acid 3.5 mmol/L (0.5-2.2)
[2017-05-16 04:12] VITALS: BMI 22.8
[2017-05-16 04:14] LABS: Anion Gap 13 mmol/L (10-20); BUN (Urea Nitrogen) 9 mg/dL (9.8-20.1); Band 6 % (5-11); Calc. Creatinine Clearance 61 mL/min (70-130); Calcium 9.6 mg/dL (7.8-10.44); Carbon Dioxide 25 mmol/L (23-31); Chloride 98 mmol/L (98-107); Estimated GFR-MDRD 73; Glucose 210 mg/dL (80-115); Hemoglobin 10.1 g/dL (12.0-16.0); Lymphocytes 5 % (21-51); MDiff Complete? YES; Mean Corpuscular Hemoglobin 29.7 pg (27.0-31.0); Mean Platelet Volume 6.5 fL (7.4-10.4); Monocytes 2 % (0-10); Neutrophil 87 % (42-75); PLT Morphology Comment Appears Adequate; Platelet Count 303 thou/uL (130-400); Potassium 3.4 mmol/L (3.5-5.1); RBC Distribution Width 14.4 % (11.5-14.5); Sodium 133 mmol/L (136-145); White Blood Cell (WBC) Count 7.9 thou/uL (4.8-10.8)
[2017-05-16] MEDS ORDERED: Potassium Chloride 20 MEQ TAB PO SCH (04:30)
[2017-05-16] MEDS: Levothyroxine Sodium 112 MCG TAB PO SCH (05:40)
[2017-05-16] MEDS ORDERED: Spiriva 18 MCG CAP (Box of 5 Caps) INH SCH (07:00)
--- NOTE | 2017-05-16 07:55 | RAD ---
RIGHT KNEE FOUR VIEWS: History: Right knee pain. FINDINGS: No fracture, dislocation, or bony destruction. No joint effusion is identified. No significant osteop hytosis is noted. POS: [facility]
--- NOTE | 2017-05-16 08:31 | CT ---
PRELIMINARY REPORT/[facility]/EMERGENCY AFTER HOURS PROCEDURE: EXAM: CT Angiography Chest With Intravenous Contrast CLINICAL HISTORY: 67 years old, female; Signs and symptoms; Cough; Symptoms not specified; Patient HX: F67 presents to the ed C/O a severe cough that causes her to have difficulty breathing. Pt states that she came to ed because the cough became unbearable. Pt denies any measured fever. Pt also reports blood clots in antoinette ngs in 2010. Pt states that she thinks she might have pneumonia because she went "outside in the rain without a jacket a few days ago. ". Pt has HX of smoking, emphysema, and copd. TECHNIQUE: Axial computed tomographic angiography images of the chest with intravenous contrast using pulmonary embolism protocol. COMPARISON: No relevant prior studies available. FINDINGS: Pulmonary arteries: No pulmonary embolism. Aorta: Mild atherosclerotic disease of the thoracic aorta without aneurysm or dissection. Lungs: Mild bilateral upper and lower lobe bronchial wall thickening, compatible with reactive diseas e or bronchitis. Linear atelectasis and/or scarring within the left lower lung. Minimal upper lobe predominant centrilobular emphysema. Pleural space: Normal. No significant effusion. No pneumothorax. Heart: Normal. Mediastinum: Small-sized hiatal hernia. Bones/joints: Multilevel thoracic spine changes. No acute fracture. No dislocation. Soft tissues: Normal. Lymph nodes: Normal. Gallbladder and bile ducts: Gallbladder is surgically absent. IMPRESSION: 1. No pulmonary embolism. 2. Mild bilateral upper and lower lobe bronchial wall thickening, compatible with reactive disease or bronchitis. 3. Incidental/non-acute findings are described above. Thank you for allowing us to participate in the care of your patient. Dictated and Authenticated by: Ishmael Sampson MD 05/16/2017 1:59 AM Central Time ([place] & [place]) FINAL REPORT CT PULMONARY ANGIOGRAM WITH CONTRAST AND 3D POSTPROCESSING: I agree with the preliminary report given by Dr. Ishmael Sampson of [facility]. POS: [facility]
--- NOTE | 2017-05-16 09:19 | HP-2 ---
CODE STATUS: DNR. PRIMARY CARE PHYSICIAN: Dr. Esposito ATTENDING Dr. Alexandru Scott RESIDENT: Dr. Shelbi Crook HISTORIAN: Patient. CHIEF COMPLAINT: Shortness of breath. HISTORY OF PRESENT ILLNESS: This is a 67-year-old female with a past medical history of COPD who complains of coughing and shortness of breath for the past several days. She also endorses sputum/mucus production that is thick when she coughs. She endorses chills. Endorses diarrhea. Denies nausea and vomiting, also endorses bright red blood per rectum. She feels this is due to her hemorrhoids. She went to the [facility] yesterday morning for similar symptoms, was diagnosed with a viral URI and was given cough medicine that upon going to the pharmacy to hop picker her cough medicine she decided it was not strong enough and came to the ER for a stronger cough medicine. Once present in the ER, she was found to be hypoxic of 86% on room air. She also complains of right knee pain as well. In the ER, she received 40 mg KCl, 3 mL of DuoNeb, 100 mL normal saline, Levaquin 750 mg IV, and 125 mg of prednisone. PAST MEDICAL HISTORY: 1. Hypertension. 2. Hypothyroidism. 3. Chronic obstructive pulmonary disease. 4. Schizoaffective disorder. 5. Diastolic congestive heart failure. PAST SURGICAL HISTORY: 1. Small bowel resection. 2. Cholecystectomy. 3. x2. 4. MRCP . ALLERGIES: 1. PCN. 2. XANAX. 3. CHANTIX. MEDICATIONS: 1. Amlodipine 2.5 mg daily. 2. Levothyroxine 112 mcg daily. 3. Topamax 200 mg at bedtime. 4. Spiriva daily. 5. Geodon 80 mg b.i.d. 6. Prozac 20 mg daily. 7. MiraLax p.r.n. 8. Clonazepam 0.5 mg t.i.d. p.r.n. 9. Gabapentin 100 mg t.i.d. 10. Omeprazole 40 mg daily. 11. Albuterol p.r.n. SOCIAL HISTORY: Former tobacco user of 1 pack per day. Denies alcohol or drug use. REVIEW OF SYSTEMS: GENERAL: Endorses fevers and chills. HEENT: Denies nasal congestion, rhinorrhea, or sore throat. RESPIRATORY: Endorses cough, shortness of breath, and mucus production with her cough, that is thick. CARDIOVASCULAR: Denies chest pain, palpitations. GI: Denies nausea, vomiting. Endorses diarrhea, also endorsed bright red blood per rectum. Endorses having hemorrhoids. SKIN: Denies rashes or lesions. MUSCULOSKELETAL: Denies pain or tenderness. NEUROLOGIC: Denies weakness, numbness. PSYCHIATRIC: Denies anxiety, depression. PHYSICAL EXAMINATION: VITAL SIGNS: Blood pressure 142/80, pulse 95, respiratory rate 20, T-max 98.7, pulse ox 86% on room air, current weight 56 kilograms. GENERAL: Alert and oriented x4, no apparent distress. Appropriately interactive. EYES: Pupils equal, round, and reactive to light and accommodation. Extraocular muscles intact. ENT: Nasal mucosa within normal limits. Oropharynx within normal limits. NECK: Supple, no lymphadenopathy or thyromegaly. CARDIOVASCULAR: Regular rate and rhythm. No murmurs, rubs or gallops. LUNGS: Normal effort, no retractions, clear to auscultation bilaterally. ABDOMEN: Soft, nontender to palpation. Positive bowel sounds in all 4 quadrants. RECTAL: Within normal limits. No blood. Normal tone, no masses or strictures. Peripheral external hemorrhoids present, not inflamed. MUSCULOSKELETAL: Structure within normal limits. NEUROLOGIC: No focal deficits. GCS 15. PSYCHIATRIC: Appropriate. LABORATORY DATA: CBC: 8.9, 10.2, 30.1, 330. CMP; 134 2.9, 95, 29, 9.93, 26 GFR 60. AST, ALT, alkaline phosphorus; 22, 25, 275. Calcium 2.1, total protein 8.1, albumin 4.1, total bilirubin 0.2. Lactic acid 2.1. D-dimer 0.79, magnesium 1.8. Flu A and B negative. PT 12.7, PTT 31, INR 1. Chest x-ray within normal limits. ASSESSMENT AND PLAN: This is a 67-year-old female with a past medical history of chronic obstructive pulmonary disease who presents with cough and shortness of breath, admitted for acute hypoxic respiratory failure secondary to chronic obstructive pulmonary disease exacerbation. 1. Acute hypoxic respiratory failure secondary to chronic obstructive pulmonary disease exacerbation. The patient was placed on prednisone 40 mg daily, and Levaquin 500 mg daily. She was admitted to medical, was provided with DuoNebs q.4h. scheduled. She is also requiring 2-3 liters of oxygen and she may likely need oxygen at home as she might be chronically hypoxic. We will also provide albuterol p.r.n. and placed on Dulera daily which is the pharmacy equivalent here for Spiriva. 2. Chronic obstructive pulmonary disease exacerbation, see above. 3. Diastolic congestive heart failure. We restarted her home medications. 4. Hypothyroidism. We restarted her levothyroxine 112 mcg per day. 5. Hypertension. We restarted the amlodipine 2.5 mg daily. 6. Gastroesophageal reflux disease. We restarted her Omeprazole 40 mg daily. 7. Schizoaffective disorder. We restarted her Geodon 80 mg b.i.d. and clonazepam 0.5 mg t.i.d. p.r.n., and Prozac 20 mg daily. She also takes Topamax 200 mg at bedtime. 8. Bright red blood per rectum. Rectal exam was within normal limits other than positive external hemorrhoids. We ordered an FOBT. She does have a mild normocytic anemia. 9. Normocytic anemia with an MCV of 89, likely anemia of chronic disease. Continue to monitor. 10. Hypokalemia, replace her potassium as it was 2.9. DISPOSITION/LENGTH OF HOSPITAL STAY: 2 days. Symptomatic medication will be provided. History and physical exam as well as management discussed with Dr. Scott. ANDREE
[2017-05-16] MEDS: predniSONE 20 MG TAB PO SCH (09:20)
[2017-05-16] MEDS: Enoxaparin Sodium 40 MG/0.4 ML SYRINGE SC SCH (09:20)
[2017-05-16] MEDS: Polyethylene Glycol 3350 17 GM Packet PO SCH (09:20)
[2017-05-16] MEDS: Amlodipine 5 MG TAB PO SCH (09:20)
[2017-05-16] MEDS: FLUoxetine HCl 20 MG CAP PO SCH (09:21)
[2017-05-16] MEDS: Calcium Carbonate + Vit D 1 TAB PO SCH (09:21)
[2017-05-16] MEDS: Folic Acid 1 MG TAB PO SCH (09:21)
[2017-05-16] MEDS: Gabapentin 100 MG CAP PO SCH ×3 (09:21→20:37)
[2017-05-16 10:28] LABS: Actual Bicarbonate (HCO3a) 24.7 mEq/L (22-26); Base Excess (BEa) -1.1 mEq/L (0 (+/-) 2.5); CO2 Tension 46.3 mmHg (35.0-45.0); Hematocrit-ABG 36.8 % (36.0-47.0); Hemoglobin (Hb) 10.6 g/dL (12.0-16.0); O2 Tension (PaO2) 61.5 mmHg (80.0-100.0); pH, Arterial 7.35 (7.35-7.45)
[2017-05-16 10:29] LABS: ALV-art Gradient 30.355 (0-20); Calcium, Ionized 1.2 mmol/L (1.12-1.30); Puncture Site RRA
[2017-05-16] MEDS: Sodium Chloride 0.9% 1,000 ML IV SCH ×2 (10:54→23:11)
[2017-05-16] MEDS ORDERED: Sodium Chloride 0.9% 1,000 ML IV SCH (11:15)
[2017-05-16] MEDS ORDERED: ISOVUE-370 76%-LOCM 1 ML ONE (12:26)
--- NOTE | 2017-05-16 12:53 | PDOC.EVN ---
Attending Addendum - Attending Addendum I personally evaluated the patient and discussed the management with Dr. Joan Crook. I agree with the History, Examination, Assessment and Plan documented in her H& P with any addition or exceptions noted below. Patient is 67 yo female with history of COPD, Scizoaffective d/o presenting with worsening cough and shortness of breath. She has been seen in our clinic recently without improvement in symptoms. In ER, she was noted to be hypoxic to mid 80s on room air. She complains of new cough and shortness of breath. CTA and CXR do not reveal pathology. She does not appear to have infection. Based on history and exam, she will be treated for COPD acute on chronic with hypoxia. Steroids, Levaquin, and fluids. Her lactate has trended up, though she does not appear critically ill and her ABG is reassuring. Will begin fluid bolus and fluids and trend. Consider medication effect. Hypokalemia will be repleted. Anticipate 1-2 day hospitalization as she has quickly improved and is interested in going home already.
[2017-05-16 13:29] LABS: Lactic Acid 4.8 mmol/L (0.5-2.2)
[2017-05-16 19:03] LABS: Lactic Acid 3.6 mmol/L (0.5-2.2)
[2017-05-16] MEDS: Guaifenesin DM 100-10/5 ML UDCUP PO PRN (20:52)
[2017-05-17] MEDS: Guaifenesin DM 100-10/5 ML UDCUP PO PRN ×3 (00:43→10:37)
[2017-05-17] MEDS: Levothyroxine Sodium 112 MCG TAB PO SCH (04:34)
[2017-05-17 05:03] LABS: #Basophils 0.1 thou/uL (0.0-0.2); #Lymphocytes 2.2 thou/uL (1.20-3.40); #Monocytes 0.9 thou/uL (0.11-0.59); #Neutrophils 7.4 thou/uL (1.40-6.50); %Basophils 0.5 % (0.0-1.0); %Eosinophils 0.3 % (0.0-10.0); %Monocytes 8.2 % (0.0-10.0); %Neutrophils 70.1 % (42.0-75.0); Hemoglobin 8.5 g/dL (12.0-16.0); Mean Corpuscular HGB CONC 31.6 g/dL (32.0-36.0); Mean Corpuscular Hemoglobin 28.7 pg (27.0-31.0); Mean Corpuscular Volume 90.9 fl (81.0-99.0); Platelet Count 296 thou/uL (130-400); RBC Distribution Width 14.7 % (11.5-14.5); Red Blood Cell (RBC) Count 2.94 mill/uL (4.20-5.40); White Blood Cell (WBC) Count 10.5 thou/uL (4.8-10.8)
[2017-05-17 05:16] LABS: Anion Gap 10 mmol/L (10-20); BUN (Urea Nitrogen) 7 mg/dL (9.8-20.1); Calc. Creatinine Clearance 69 mL/min (70-130); Calcium 9.1 mg/dL (7.8-10.44); Carbon Dioxide 29 mmol/L (23-31); Chloride 100 mmol/L (98-107); Estimated GFR-MDRD 84; Glucose 92 mg/dL (80-115); Potassium 4.5 mmol/L (3.5-5.1); Sodium 134 mmol/L (136-145)
[2017-05-17] MEDS ORDERED: FLU VACC TS2017-18 (>65YR) 0.5 ML SYRINGE IM ONE (09:00)
--- NOTE | 2017-05-17 09:08 | PDOC.FM ---
- Subjective Subjective: Patient feeling better this morning and requesting to go home. She has not been wearing o2. No acute events overnight and has no complaints this AM. She states she does not intend to smoke anymore. - Objective MAR Reviewed: Yes Vital Signs & Weight: Vital Signs (12 hours) Temp Pulse Resp BP Pulse Ox 05/17/17 07:18 100 18 92 L 05/17/17 07:07 98.4 F 90 16 155/96 H 91 L 05/17/17 04:08 103 H 18 90 L 05/17/17 00:59 98.0 F 97 20 119/75 92 L Weight Weight 56.699 kg I&O: 05/16/17 05/17/17 05/18/17 06:59 06:59 06:59 Intake Total 780 Balance 780 Result Diagrams: 05/17/17 03:57 05/17/17 03:57 <Kami Porras - Last Filed: 05/17/17 09:14> - Objective Vital Signs & Weight: Vital Signs (12 hours) Temp Pulse Resp BP BP Pulse Ox 05/17/17 11:33 98.5 F 96 16 165/96 H 95 05/17/17 10:06 95 16 93 L 05/17/17 09:58 100 05/17/17 08:00 98.4 F 90 16 91 L 05/17/17 07:18 100 18 92 L 05/17/17 07:07 98.4 F 90 16 155/96 H 91 L 05/17/17 04:08 103 H 18 90 L 05/17/17 00:59 98.0 F 97 20 119/75 92 L Weight Weight 56.699 kg I&O: 05/16/17 05/17/17 05/18/17 06:59 06:59 06:59 Intake Total 780 480 Balance 780 480 Result Diagrams: 05/17/17 03:57 05/17/17 03:57 <Alexandru cSott - Last Filed: 05/17/17 12:16> Phys Exam - Physical Examination Constitutional: NAD HEENT: moist MMs Respiratory: no wheezing, no rales, no rhonchi, clear to auscultation bilateral Cardiovascular: RRR, no significant murmur Gastrointestinal: soft, non-tender, positive bowel sounds Musculoskeletal: no edema Neurological: non-focal, normal sensation, moves all 4 limbs Psychiatric: normal affect, A&O x 3 Skin: cap refill <2 seconds <Kami Porras - Last Filed: 05/17/17 09:14> Dx/Plan (1) COPD with acute exacerbation Code(s): J44.1 - CHRONIC OBSTRUCTIVE PULMONARY DISEASE W (ACUTE) EXACERBATION Status: Acute Plan: Improved with nebs, steroids, and 1 dose levaquin. Likely can be discharged today with additional 6 days of levaquin and 4 days of prednisone. F/U outpt next week. (2) Acute respiratory failure with hypoxia Code(s): J96.01 - ACUTE RESPIRATORY FAILURE WITH HYPOXIA Status: Resolved (3) BRBPR (bright red blood per rectum) Code(s): K62.5 - HEMORRHAGE OF ANUS AND RECTUM Status: Acute Plan: She is set up to have colonoscopy with Dr. Ovalle. drop in hgb from 10.1 to 8.5, however no c/o leona blood. She did receive 3 lts NS, may be dilutional. IV fluids ceased. May consider repeat hgb prior to DC. (4) Hypertension Code(s): I10 - ESSENTIAL (PRIMARY) HYPERTENSION Status: Acute Plan: controlled. cont home meds. (5) Hypothyroidism Code(s): E03.9 - HYPOTHYROIDISM, UNSPECIFIED Status: Chronic (6) Schizoaffective disorder Code(s): F25.9 - SCHIZOAFFECTIVE DISORDER, UNSPECIFIED Status: Chronic QualifierTitle: Schizoaffective disorder type: bipolar Qualified Code(s) : F25.0 - Schizoaffective disorder, bipolar type Plan: cont home meds. <Kami Porras - Last Filed: 05/17/17 09:14> Attending Addendum - Attending Addendum I personally evaluated the patient and discussed the management with Dr. Porras. I agree with the History, Examination, Assessment and Plan documented above with any addition or exceptions noted below. Patient feeling well this morning. She has been weaned off O2 and feels ready to go home. Labs stable. Mild decrease in Hgb is likely dilutional in nature and she is scheduled with surgery in near future for colonoscopy. Lactate is downtrending. Uncertain etiology, though we have excluded acidosis, acidemia, hypoxia, and other serious causes. Advise short term follow up in our clinic for repeat lab draw. Consider medication effect. <Alexandru Scott - Last Filed: 05/17/17 12:16>
[2017-05-17 09:49] LABS: Lactic Acid 2.9 mmol/L (0.5-2.2)
[2017-05-17] MEDS: Folic Acid 1 MG TAB PO SCH (09:58)
[2017-05-17] MEDS: predniSONE 20 MG TAB PO SCH (09:58)
[2017-05-17] MEDS: Gabapentin 100 MG CAP PO SCH (09:58)
[2017-05-17] MEDS: Amlodipine 5 MG TAB PO SCH (09:58)
[2017-05-17] MEDS: Calcium Carbonate + Vit D 1 TAB PO SCH (09:58)
[2017-05-17] MEDS: FLUoxetine HCl 20 MG CAP PO SCH (09:58)
[2017-05-17] MEDS: Enoxaparin Sodium 40 MG/0.4 ML SYRINGE SC SCH (10:00)
[2017-05-17] MEDS: Polyethylene Glycol 3350 17 GM Packet PO SCH (10:00)
[2017-05-17 11:35] VITALS: BP 165/96; TEMP 98.5
--- NOTE | 2017-05-19 19:46 | DIS-2 ---
DATE OF ADMISSION: 05/16/2017 DATE OF DISCHARGE: 05/17/2017 ADMITTING RESIDENT: Shelbi Astorga M.D. DISCHARGE RESIDENT: Kami Nuñez M.D. CONSULTATIONS: None. PROCEDURES: None. IMAGIN. Chest x-ray showed no active intrathoracic disease. 2. Chest thorax CTA showed no pulmonary embolism, mild bilateral upper and lower lobe bronchial wall thickening, compatible with reactive airway disease or bronchitis. 3. Knee x-ray showed no fracture, dislocation or bony destruction. No joint effusion identified. N o significant abnormality. PRIMARY DIAGNOSES: 1. Acute chronic obstructive pulmonary disease exacerbation. 2. Acute hypoxic respiratory failure. 3. Bright red blood per rectum. 4. Hypokalemia. 5. Normocytic anemia. SECONDARY DIAGNOSES: 1. Diastolic congestive heart failure. 2. Hypothyroidism. 3. Hypertension. 4. Gastroesophageal reflux disease. 5. Schizoaffective disorder. DISCHARGE MEDICATIONS: 1. Albuterol sulfate 2.5 mg nebulized q.4 hours p.r.n. shortness of breath or wheezing. 2. ProAir 2 puffs inhaled q.4 hours p.r.n. shortness of breath or wheezing. 3. Amlodipine 2.5 mg p.o. daily. 4. Clonazepam 0.5 mg p.o. b.i.d. p.r.n. anxiety or agitation. 5. Prozac 20 mg p.o. daily. 6. Folic acid 1 mg p.o. daily. 7. Gabapentin 100 mg p.o. t.i.d. 8. Levaquin 500 mg p.o. daily for 5 days. 9. Synthroid 112 mcg p.o. daily. 10. Omeprazole 40 mg p.o. daily. 11. MiraLax 17 grams p.o. daily. 12. Prednisone 40 mg p.o. daily for 3 days. 13. Spiriva HandiHaler 18 mcg inhaled daily. 14. Ziprasidone 80 mg p.o. at bedtime. DISCONTINUED MEDICATIONS: None. HISTORY OF PRESENT ILLNESS AND HOSPITAL COURSE: This is a 67-year-old female with past medical histo ry of COPD, who presented complaining of cough, shortness of breath for the past several days as well as sputum production when she coughs. The patient was found to be hypoxic to 86% on room air. That came up easily with nasal cannula. The patient was thought to be in a COPD exacerbation and she was treated accordingly with Levaquin, prednisone, DuoNebs, as well as her home inhalers. The patient w as on oxygen, but was able to be weaned off after the first day of hospitalization. The patient also noted that she had bright red blood per rectum. However, upon further evaluation, the patient infor med us that she had known hemorrhoids and was already set up with a general surgeon in this area for a colonoscopy and possible hemorrhoidectomy as well in the next few weeks. The patient also had an e levated lactic acid that trended up, the highest it got was 4.9, and then down trended after receivin g fluids. This was likely secondary to decreased oxygen levels. There was no sign of infection. Th e patient had an initial potassium of 2.9 and this was repleted, her potassium on discharge was 4.5. The patient throughout her hospitalization remained stable and her respiratory status improved very quickly with treatment with the steroids and breathing treatments. She was discharged with 5-day cou rse total of Levaquin as well as 5-day course of prednisone and discharged with all of her home inhal ers. She was encouraged to continue her follow up appointments with the general surgeon. DISPOSITION: Stable. DISCHARGE INSTRUCTIONS: 1. Location: Home. 2. Diet: Regular. 3. Activity: As tolerated. 4. Followup: Follow up with [facility] within 1-2 weeks.
== END 2017-05-17 13:44 | disposition home or self-care (01) | DRG 189 ==
LOC: ERS 23:04 → T4-A 05-16 03:12
PROVIDERS: ADMIT Family Medicine; ATTEND Family Medicine
DX: J96.01 Acute respiratory failure with hypoxia (principal); I11.0 Hypertensive heart disease with heart failure; F25.9 Schizoaffective disorder, unspecified; I50.32 Chronic diastolic (congestive) heart failure; J44.1 Chronic obstructive pulmonary disease with (acute) exacerbation; K62.5 Hemorrhage of anus and rectum; E03.9 Hypothyroidism, unspecified; K21.9 Gastro-esophageal reflux disease without esophagitis; E87.6 Hypokalemia; Z87.891 Personal history of nicotine dependence; D64.9 Anemia, unspecified
CPT/HCPCS: 36415; 71045; 71275; 80048; 80053; 82550; 82553; 82805; 83605; 83735; 84145; 84484; 85025; 85379; 85610; 85730; 94640; 96365; 96375; 99406; J1650; J1956; J2405; J2930; J7506; J7620

== ENCOUNTER 2017-05-30 07:58 | Outpatient (CLI) | payer MEDICARE, MEDICAID ==
[2017-05-30 09:57] LABS: #Basophils 0.1 thou/uL (0.0-0.2); #Eosinphils 0.2 thou/uL (0.0-0.7); #Lymphocytes 2.1 thou/uL (1.20-3.40); #Monocytes 0.6 thou/uL (0.11-0.59); #Neutrophils 5.9 thou/uL (1.40-6.50); %Basophils 0.9 % (0.0-1.0); %Eosinophils 2.5 % (0.0-10.0); %Lymphocytes 23.9 % (21.0-51.0); %Monocytes 6.3 % (0.0-10.0); %Neutrophils 66.5 % (42.0-75.0); Hemoglobin 10.1 g/dL (12.0-16.0); Mean Corpuscular HGB CONC 31.3 g/dL (32.0-36.0); Mean Corpuscular Hemoglobin 27.6 pg (27.0-31.0); Mean Corpuscular Volume 88.2 fl (81.0-99.0); Mean Platelet Volume 6.5 fL (7.4-10.4); Platelet Count 368 thou/uL (130-400); Red Blood Cell (RBC) Count 3.67 mill/uL (4.20-5.40); White Blood Cell (WBC) Count 8.8 thou/uL (4.8-10.8)
[2017-05-30 10:06] LABS: Prothrombin Time 12.8 SEC (12.0-14.7)
[2017-05-30 10:07] LABS: PTT 31.1 SEC (22.9-36.1)
[2017-05-30 10:18] LABS: Anion Gap 7 mmol/L (10-20); BUN (Urea Nitrogen) 13 mg/dL (9.8-20.1); Calc. Creatinine Clearance 0 mL/min (70-130); Carbon Dioxide 26 mmol/L (23-31); Chloride 98 mmol/L (98-107); Estimated GFR-MDRD 71; Glucose 101 mg/dL (80-115); Potassium 3.8 mmol/L (3.5-5.1); Sodium 127 mmol/L (136-145)
[2017-05-30 13:29] LABS: Bilirubin Negative (Negative); Blood, Urine Negative (Negative); Clarity CLEAR (Clear); Glucose, Urine (Dipstick) Negative (Negative); Leukocyte Moderate (Negative); Nitrite Negative (Negative); Protein, Urine (Dipstick) Negative (Neg-Trace); Specific Gravity, Urine 1.008 (1.002-1.036); Urobilinogen 0.2 mg/dL (0.2-1.0)
[2017-05-30 13:35] LABS: Bacteria/HPF Rare-Few HPF (None Seen); Hyaline Casts/LPF 0-3 HYALINE CAST LPF (0-3 Hyaline); Pathc Cast-AUWi Flag 0.27 (0-2.49); RBC/HPF 0-3 HPF (0-3); Squamous Epithelial 0-3 HPF (0-3)
== END 2017-05-30 07:59 | disposition home or self-care (01) ==
LOC: LABBT 07:58
PROVIDERS: ATTEND Orthopaedic Surgery
DX: Z01.818 Encounter for other preprocedural examination (principal); M17.12 Unilateral primary osteoarthritis, left knee
CPT/HCPCS: 80048; 81001; 85025; 85610; 85730; 86850; 86900; 86901; 93005; 93010

== ENCOUNTER 2017-06-06 05:33 | Day surgery (SDC) | payer MEDICARE, MEDICAID ==
[2017-05-30 08:34] VITALS: BMI 23.8
[2017-06-06] MEDS ORDERED: CEFAZOLIN/Water 2 GM/20 ML SYRINGE ONE ×2 (06:00→14:07)
[2017-06-06] MEDS ORDERED: Tranexamic Acid 1,000 MG/100 ML BAG ONE ×2 (06:01→09:27)
[2017-06-06] MEDS ORDERED: Fentanyl 100 MCG/2 ML VIAL ONE (06:18)
[2017-06-06] MEDS ORDERED: Midazolam HCl 2 mg/2 ml Vial ONE (06:18)
[2017-06-06] MEDS ORDERED: Bupivacaine 0.25% HCL 30 ML VIAL ONE (06:37)
[2017-06-06] MEDS ORDERED: Promethazine HCl 25 MG/ML VIAL IM PRN (07:29)
[2017-06-06] MEDS ORDERED: Ondansetron HCl/PF 4 MG/2 ML Vial IVP PRN (07:29)
[2017-06-06] MEDS ORDERED: Zolpidem Tartrate 5 MG TAB PO PRN (07:29)
[2017-06-06] MEDS ORDERED: traMADol HCl 50 MG TAB PO PRN ×4 (07:29→16:43)
[2017-06-06] MEDS ORDERED: Ropivacaine 0.2% 550 ML 550 ML NERVE BLCK SCH (07:29)
[2017-06-06] MEDS ORDERED: Fentanyl 100 MCG/2 ML VIAL IV PRN (07:30)
[2017-06-06] MEDS ORDERED: HYDROcodone/Acetaminophen 7.5/325 mg Tablet PO PRN ×2 (07:31)
[2017-06-06 07:38] LABS: Bilirubin Negative (Negative); Blood, Urine Negative (Negative); Clarity CLEAR (Clear); Glucose, Urine (Dipstick) Negative (Negative); Leukocyte Negative (Negative); Nitrite Negative (Negative); Protein, Urine (Dipstick) Negative (Neg-Trace); Specific Gravity, Urine 1.012 (1.002-1.036); Urobilinogen 0.2 mg/dL (0.2-1.0); pH, Urine 7.5 (5.0-9.0)
[2017-06-06 07:39] LABS: Bacteria/HPF None Seen HPF (None Seen); Hyaline Casts/LPF 0-3 HYALINE CAST LPF (0-3 Hyaline); RBC/HPF 0-3 HPF (0-3); Squamous Epithelial None Seen HPF (0-3); WBC/HPF None Seen HPF (0-3)
[2017-06-06] MEDS ORDERED: Acetaminophen 325 MG TAB PO PRN (08:54)
[2017-06-06] MEDS ORDERED: HYDROcodone/Acetaminophen 10/325 mg Tablet PO PRN ×2 (08:54)
[2017-06-06] MEDS ORDERED: diphenhydrAMINE 25 MG CAP PO PRN (08:54)
--- NOTE | 2017-06-06 09:55 | OP ---
DATE OF PROCEDURE: 06/06/2017 PREOPERATIVE DIAGNOSIS: Left knee osteoarthritis. POSTOPERATIVE DIAGNOSIS: Left knee osteoarthritis. PROCEDURE PERFORMED: Left total knee arthroplasty. STAFF: Austen Bettencourt M.D. POSTER: Esvin Conner PA-C. ANESTHESIA: Burrough. The patient received a general intubation with a single shot sciatic. ESTIMATED BLOOD LOSS: 100 mL. TOURNIQUET TIME: 69 minutes. ANTIBIOTICS: The patient received TXA 1 gram, vancomycin 1 gram, Ancef 2 grams. IMPLANTS: A [place] knee component, size 3 CR femur, size 3 CR tibia, a 9 mm CR poly and an A27 maylin y. COMPLICATIONS: None. HISTORY OF PRESENT ILLNESS: Ms. Baldwin is a 67-year-old female who presented to me with left knee pa in. The patient had years of left knee pain. She has a history of multiple medical problems to incl ude anxiety, schizoaffective disorder, COPD, hypertensive, and osteopenia. The patient had undergone a history of chronic pain. The patient understood the risks and benefits of a left total knee arthr oplasty to include pain, scar, bleeding, infection, damage to vital structures, decreased range or st rength, failure of the procedure, continued pain despite surgical intervention, need for further surg eries, damage to vital structures, loss of life or limb. The patient understood these risks and bene fits and elected to proceed. PROCEDURE IN DETAIL: Timeout was performed designating the patient's left lower extremity as the ope rative site based on sight, consents, markings. After completion of timeout, the patient's left lowe r extremity was prepped and draped in sterile fashion. Tourniquet was brought up for a total of 69 m inutes. Anterior midline incision, medial parapatellar arthrotomy was performed, excised the fat pad , released the soft tissues, exposed the femur, mapped out the femur and cut 0 degrees varus valgus, 4 degrees of anterior slope, 8-7 mm respectively and we got a nice butterfly of the bone. We then ca me back to the tibia, exposed the tibia, placed retractors in position, mapped out the tibia, cut it 4 degrees posterior slope and 0 degrees varus valgus, 1 and 6 mm respectively. Had rasped and increa sed that a little bit on the medial side after our cut, we placed our lamina segregator, excised the re mnant of the ACL. The lateral meniscus, used our osteotome to remove the posterior aspect of the bon e. We placed our block and cut our block for our femur. The size 3. We anteroposterior chamfer cut s. We removed our distal , removed our osteophytes, we then cut our tibia. As I stated, 0 degr ees of varus valgus and 4 degrees of posterior slope, 1 and 6 respectively, removed osteophytes media l and laterally to ensure we had good position. Removed our menisci. We then trialed with a size 3 anterior 1/3 of tibia down the tibial crest medialized. We then placed our femoral component. We arellano d good overall tracking. We released the PCL, cut our patella from 22 to about 11-12 mm, drilled for A27, passed it, had good tracking. We then removed all implants, passed down our medial condyle one more time, ensured that there were no osteophytes posteriorly, we cut our box for our keel for our t ibia, we then cemented our tibia, cemented in, placed our poly. We cemented our femur, removed all e xcess cement, placed the patient in extension. Put cement also in our patella, we then closed with # 1 Vicryl, #2 Quill, 0 Quill, 2-0 Quill, and glue. The patient will be admitted. I think the patient is not a candidate to be discharged home postopera tive day 1. We will follow up with the patient in house.
[2017-06-06] MEDS: Dextrose 5 %-0.45 % NaCl 1,000 ML IV SCH ×2 (14:54→20:32)
[2017-06-06] MEDS: Aspirin 81 mg Enteric Coated Tablet PO SCH ×2 (14:54→20:19)
[2017-06-06] MEDS: Multivitamin W/ Minerals 1 TAB PO SCH (14:55)
[2017-06-06] MEDS: CEFAZOLIN/Water 2 GM/20 ML SYRINGE SLOW IVP SCH ×2 (14:55→22:29)
[2017-06-06] MEDS: Ketorolac Tromethamine 30 MG/ML VIAL IVP SCH ×2 (14:55→17:47)
[2017-06-06] MEDS: Ferrous Gluconate 324 MG TAB PO SCH ×2 (14:55→20:19)
[2017-06-06] MEDS: Senokot S 8.6-50 MG TAB PO SCH ×2 (14:55→20:19)
[2017-06-06] MEDS ORDERED: Ropivacaine 0.2% HCl/PF (40 MG/20 ML VIAL) ONE (16:10)
[2017-06-06] MEDS ORDERED: Ropivacaine 0.5% HCl/PF (150 MG/30 ML VIAL) ONE (16:10)
[2017-06-06] MEDS ORDERED: PHENYLEPHRINE-NS 100 MCG/ML 10 ML SYRINGE ONE (16:32)
[2017-06-06] MEDS ORDERED: ePHEDrine/0.9% NaCl/PF SYRINGE 50 mg/10 ml ONE (16:32)
[2017-06-06] MEDS ORDERED: Ketorolac Tromethamine 30 MG/ML VIAL ONE (16:32)
[2017-06-06] MEDS ORDERED: Ondansetron HCl/PF 4 MG/2 ML Vial ONE (16:32)
[2017-06-06] MEDS ORDERED: Lidocaine 1% PF 5 ML VIAL ONE (16:32)
[2017-06-06] MEDS ORDERED: Dexamethasone 20 MG/5 ML VIAL ONE (16:32)
[2017-06-06] MEDS ORDERED: PROPOFOL 200 MG/20 ML VIAL ONE (16:32)
[2017-06-06] MEDS ORDERED: PROVENTIL INHALER 6.7 G (200 INHALATIONS) INH PRN (17:03)
[2017-06-06] MEDS ORDERED: Albuterol Sulfate 2.5 mg/3 ml Neb NEB PRN (17:03)
[2017-06-06] MEDS: Ipratropium Bromide 2.5 ml Neb NEB SCH (18:23)
--- NOTE | 2017-06-06 18:45 | CON-2 ---
DATE OF CONSULTATION: 06/06/2017 CODE STATUS: [id number]. The patient has an out of hospital DNR with her which she showed me upon request of this. She does not desire intubation or chest compressions and wants to " naturally." PRIMARY CARE PHYSICIAN: Pedrito Esposito MD RESIDENT: Rabia Rowland M.D. ATTENDING: Shira Brown M.D. HISTORY OF PRESENT ILLNESS: Ms. Baldwin is a very pleasant 67-year-old female who is a patient of our clinic, who presented this morning for a left knee replacement. We were consulted for medical management of her comorbidities. At this time, she is feeling very well. She just finished walking down the [place] with PT and rates her pain at 2/10. She has no other complaints. She denies any chest pain or abdominal pain and tolerated her lunch without any issue. PAST MEDICAL HISTORY: 1. COPD. 2. Hypothyroidism. 3. Hypertension. 4. Schizoaffective disorder. 5. Osteoarthritis. 6. Gastritis. 7. Diverticulosis. 8. History of hypokalemia. 9. Glucose intolerance. 10. Chronic constipation. 11. Diastolic heart failure. 12. Steatosis of liver. 13. Anxiety. 14. History of tobacco abuse. 15. Hemorrhoids. 16. Hiatal hernia. 17. Pulmonary embolism in 2009. 18. Glaucoma. 19. Diastolic dysfunction. PAST SURGICAL HISTORY: 1. Small bowel resection in 03/2017. 2. Cholecystectomy. 3. x2. 4. Biopsy of the thyroid nodule. 5. Normal colonoscopy in 2008. 6. EGD in 2013 showed a large hiatal hernia. HOME MEDICATIONS: 1. Atorvastatin 10 mg p.o. at bedtime. 2. Prozac 20 mg p.o. daily. 3. Ziprasidone 80 mg p.o. at bedtime. 4. Levothyroxine 125 mcg p.o. q.a.m., 30 minutes before breakfast. 5. Spiriva 18 mcg 2 puffs inhaled once daily. 6. MiraLax 17 grams dissolved once daily. 7. Clonazepam 0.5 mg p.o. t.i.d. p.r.n. anxiety. 8. Gabapentin 100 mg 1 tablet p.o. t.i.d. 9. Omeprazole 40 mg p.o. daily. 10. Folic acid 1 mg p.o. daily. 11. Amlodipine 2.5 mg p.o. daily. 12. ProAir 108 mcg 1-2 puffs q.4-6 hours p.r.n. shortness of breath. 13. Albuterol sulfate 2.5 mg in 3 mL inhaled solution q.4 hours p.r.n. shortness of breath. SOCIAL HISTORY: History of tobacco abuse. The patient reported she has stopped smoking since last admission in the hospital. ALLERGIES: PENICILLIN, ALPRAZOLAM, CHANTIX. PHYSICAL EXAMINATION: VITAL SIGNS: Respiratory rate 18, heart rate 91, blood pressure 125/75, O2 90% on 1 liter. Weight 58.9 kilograms. GENERAL: No apparent distress, alert and oriented x3. EYES: EOMI, sclerae nonicteric. ENT: Moist mucous membranes. CARDIOVASCULAR: Regular rate and rhythm, no murmur noted. Pulses are equal throughout. RESPIRATORY: Clear to auscultation on inspiration with some scattered expiratory wheezes. ABDOMEN: Nontender, nondistended. No guarding or rebound. EXTREMITIES: No edema, equal movements bilaterally with wrap in place on left knee. SKIN: No rash or ulcer. Skin changes from cleaning prep. NEUROLOGIC: Cranial nerves intact. No focal deficit. PSYCHIATRIC: Mood and affect appropriate. Judgment and insight intact. ASSESSMENT AND PLAN: A 67-year-old female status post left total knee replacement this morning. 1. Postoperative: Postop management per Dr. Bettencourt as well as deep venous thrombosis prophylaxis. 2. Hypertension: Within normal limits. We will resume home medications. 3. Schizoaffective disorder: We will resume home medications. 4. Hypothyroidism: We will resume home levothyroxine. 5. Chronic obstructive pulmonary disease: We will resume home inhalers. 6. Hyperlipidemia: Resume home atorvastatin. 7. Gastritis: Resume home omeprazole. 8. Prophylaxis: Deep venous thrombosis prophylaxis per Dr. Bettencourt, we will resume home omeprazole. Thank you for this consultation of our clinic patient. We will continue to follow until discharge. [facility]
[2017-06-06] MEDS ORDERED: Vancomycin HCl 1 GM in Premix Bag 1 BAG IVPB SCH (19:00)
--- NOTE | 2017-06-06 19:07 | PDOC.FPRHP ---
- History of Present Illness Chief Complaint: knee surgery History of Present Illness: Consulted by ortho for management of co-morbid condition during hospital stay. I have repeated the H&P. Chart was reviewed and case discussed. Please see residents H&P for complete details. In brief..... Mrs Baldwin is a 67 yo female with multiple co-morbid conditions presents for admission 2/2 Left Knee replacement due to severe OA. Now postop and doing well. No complications. Pain controlled. Using IS at bedside. Has routine care with Dr. Esposito at [facility]. Co-morbid conditions have be managed and stable. Home meds have been restarted by resident. - Allergies/Adverse Reactions Allergies Allergy/AdvReac Type Severity Reaction Status Date / Time alprazolam [From Xanax] Allergy Verified 06/06/17 17:21 bupropion HCl Allergy Verified 06/06/17 17:21 [From Wellbutrin] divalproex sodium Allergy Verified 06/06/17 17:21 [From Depakote] ranitidine Allergy Verified 06/06/17 17:21 sertraline HCl [From Zoloft] Allergy Verified 06/06/17 17:21 varenicline tartrate Allergy Verified 06/06/17 17:21 [From Chantix] - Home Medications Medication Instructions Recorded Confirmed Type Folic Acid 1 mg PO QAM 03/20/15 05/30/17 History Albuterol Sulfate [Proair HFA] 2 puff INH Q4H PRN 08/01/16 05/30/17 History FLUoxetine HCl [Prozac] 20 mg PO QAM 08/01/16 05/30/17 History Gabapentin [Neurontin] 100 mg PO TID 08/01/16 05/30/17 History amLODIPine Besylate [Amlodipine 2.5 mg PO QAM 09/19/16 05/30/17 History Besylate] Ca/D3/Mag Ox/Zinc/Folding Machine Tender/El/Bor 1 tablet PO QAM 09/24/16 05/30/17 History [Calcium 600-D3 Plus Caplet] Omeprazole 40 mg PO QAM 09/24/16 05/30/17 History Albuterol Sulfate [Albuterol 2.5 mg NEB Q4H PRN 01/15/17 05/30/17 History Sulfate Neb] Levothyroxine Sodium [Synthroid] 112 mcg PO 0600 #30 tab 01/15/17 05/30/17 Rx Polyethylene Glycol 3350 [Miralax] 17 gm PO QAM 01/15/17 05/30/17 History Lactulose [Constulose] 2 tablespoon PO PRN PRN 05/30/17 05/30/17 History Tiotropium [Spiriva Handihaler] 2 puff INH QAM 05/30/17 05/30/17 History Ziprasidone HCl 80 mg PO BID 05/30/17 05/30/17 History clonazePAM [Klonopin] 0.5 mg PO TID PRN 05/30/17 05/30/17 History - History PMHx: see resident H&P PSHx: see resident H&P FHx: see resident H&P Social: see resident H&P - Review of Systems General: denies: fever/chills, fatigue Eyes: denies: eye pain, vision changes ENT: denies: nasal congestion, rhinorrhea Respiratory: denies: cough, congestion, shortness of breath Cardiovascular: denies: chest pain, palpitation, edema Gastrointestinal: reports: abdominal pain. denies: nausea, vomiting, diarrhea, constipation Genitourinary: denies: incontinence, dysuria, discharge Skin: denies: rashes, lesions, jaundice, itching Musculoskeletal: reports: pain (appropriate postop), tenderness (appropriate postop), stiffness (appropriate postop). denies: swelling, arthritis/ arthralgias Neurological: denies: numbness, syncope, weakness Psychological: denies: anxiety, depression - Vital signs BP: 128/76 HR: 92 RR: 16 Tmax: 98.2 Pox: 98% on 2L via NC Wt: 58.967 kg - Physical Exam Constitutional: NAD, awake, alert and oriented, well developed HEENT: normocephalic and atraumatic, PERRLA, EOMI, conjunctiva clear, no scleral icterus, grossly normal vision, grossly normal hearing Neck: supple, FROM, trachea midline Chest: no-tender to palpation Heart: RRR, normal S1/S2, no murmurs/rubs/gallops Lungs: CTAB, no respiratory distress, good air movement, no rales/rhonchi, no wheezing, no retractions Abdomen: soft, non-tender, bowel sounds present, no masses/distention Musculoskeletal: normal structure, normal tone, ROM grossly normal (Mild restriction noted to left due to recent surgery) Neurological: no focal deficit, normal sensation Skin: no rash/lesions, good turgor, capillary refill <2 seconds Heme/Lymphatic: no unusual bruising or bleeding, no purpura, no petechia Psychiatric: normal mood and affect, good judgment and insight, intact recent and remote memory FMR H&P: Results - Labs Lab results: Urine Ketones Negative mg/dL (Negative) 06/06/17 07:15 Urine Blood Negative (Negative) 06/06/17 07:15 Urine Nitrite Negative (Negative) 06/06/17 07:15 Ur Leukocyte Esterase Negative (Negative) 06/06/17 07:15 Urine RBC 0-3 HPF (0-3) 06/06/17 07:15 Urine WBC None Seen HPF (0-3) 06/06/17 07:15 Ur Squamous Epith Cells None Seen HPF (0-3) 06/06/17 07:15 Urine Bacteria None Seen HPF (None Seen) 06/06/17 07:15 FMR H&P: A/P - Plan Agree with resident A/P. Will continue to follow along side ortho. Will manage co-morbid conditions as needed. Thank you for the consultation. Kulwinder
[2017-06-06] MEDS: Gabapentin 100 MG CAP PO SCH (20:19)
[2017-06-07] MEDS: Ipratropium Bromide 2.5 ml Neb NEB SCH ×4 (00:16→19:09)
[2017-06-07] MEDS: Ketorolac Tromethamine 30 MG/ML VIAL IVP SCH ×5 (00:28→23:16)
[2017-06-07] MEDS: Dextrose 5 %-0.45 % NaCl 1,000 ML IV SCH ×2 (05:25→17:25)
[2017-06-07] MEDS: Levothyroxine Sodium 125 MCG TAB PO SCH (05:30)
--- NOTE | 2017-06-07 06:41 | PDOC.FM ---
- Objective Vital Signs & Weight: Vital Signs (12 hours) Temp Pulse Resp BP Pulse Ox 06/07/17 00:41 98.5 F 82 16 98/61 91 L 06/07/17 00:16 90 16 97 06/06/17 20:24 97.9 F 92 16 94 L 06/06/17 20:22 92 125/87 Weight Weight 58.967 kg I&O: 06/05/17 06/06/17 06/07/17 06:59 06:59 06:59 Intake Total 1811 Output Total 4400 Balance -8134
[2017-06-07 06:51] LABS: Hemoglobin 8.7 g/dL (12.0-16.0); Mean Corpuscular HGB CONC 32.2 g/dL (32.0-36.0); Mean Corpuscular Hemoglobin 29.1 pg (27.0-31.0); Mean Corpuscular Volume 90.3 fl (81.0-99.0); Mean Platelet Volume 7.1 fL (7.4-10.4); Platelet Count 302 thou/uL (130-400); RBC Distribution Width 15.6 % (11.5-14.5); Red Blood Cell (RBC) Count 2.98 mill/uL (4.20-5.40); White Blood Cell (WBC) Count 9.4 thou/uL (4.8-10.8)
[2017-06-07] MEDS: Ferrous Gluconate 324 MG TAB PO SCH ×2 (08:10→21:12)
[2017-06-07] MEDS: Folic Acid 1 MG TAB PO SCH (08:11)
[2017-06-07] MEDS: FLUoxetine HCl 20 MG CAP PO SCH (08:11)
[2017-06-07] MEDS: Gabapentin 100 MG CAP PO SCH ×3 (08:11→21:12)
[2017-06-07] MEDS: Aspirin 81 mg Enteric Coated Tablet PO SCH ×2 (08:12→21:12)
[2017-06-07] MEDS: Multivitamin W/ Minerals 1 TAB PO SCH (08:12)
[2017-06-07] MEDS: Senokot S 8.6-50 MG TAB PO SCH ×2 (08:12→21:12)
[2017-06-07] MEDS: Polyethylene Glycol 3350 17 GM Packet PO SCH (08:13)
[2017-06-07] MEDS: Amlodipine 5 MG TAB PO SCH (08:13)
--- NOTE | 2017-06-07 08:55 | PDOC.FM ---
- Subjective Subjective: Ms. Baldwin is feeling very well this morning and sitting up in chair eating her breakfast. She took pain medication overnight because she did not want to get behind on her pain but rates it as a 2. She is ready to work with PT and is all packed for rehab. She has no complaints or concerns this morning. - Objective MAR Reviewed: Yes Vital Signs & Weight: Vital Signs (12 hours) Temp Pulse Resp BP Pulse Ox 06/07/17 08:13 92 06/07/17 06:44 92 16 96 06/07/17 00:41 98.5 F 82 16 98/61 91 L 06/07/17 00:16 90 16 97 Weight Weight 58.967 kg I&O: 06/06/17 06/07/17 06/08/17 06:59 06:59 06:59 Intake Total 1811 Output Total 4400 Balance -2589 Result Diagrams: 06/07/17 06:12 <Rabia Rowland - Last Filed: 06/07/17 08:53> - Objective Vital Signs & Weight: Vital Signs (12 hours) Temp Pulse Resp BP Pulse Ox Pulse Ox 06/07/17 09:23 86 L 06/07/17 08:13 92 06/07/17 06:44 92 16 96 06/07/17 00:41 98.5 F 82 16 98/61 91 L 06/07/17 00:16 90 16 97 Weight Weight 58.967 kg I&O: 06/06/17 06/07/17 06/08/17 06:59 06:59 06:59 Intake Total 1811 Output Total 4400 Balance -2589 Result Diagrams: 06/07/17 06:12 <Chapincito Cortez - Last Filed: 06/07/17 10:50> Phys Exam - Physical Examination Constitutional: NAD HEENT: moist MMs, sclera anicteric NC in place Neck: supple Respiratory: no wheezing, clear to auscultation bilateral Cardiovascular: RRR, no significant murmur Gastrointestinal: soft, non-tender, no distention, positive bowel sounds Musculoskeletal: no edema gold wrap on L knee in place Neurological: non-focal, moves all 4 limbs Psychiatric: normal affect, A&O x 3 Skin: no rash, cap refill <2 seconds <Rabia Rowland - Last Filed: 06/07/17 08:53> Dx/Plan (1) COPD (chronic obstructive pulmonary disease) Status: Acute (2) Hypertension Code(s): I10 - ESSENTIAL (PRIMARY) HYPERTENSION Status: Acute (3) Bipolar disorder Code(s): F31.9 - BIPOLAR DISORDER, UNSPECIFIED Status: Chronic (4) Gastroesophageal reflux disease Code(s): K21.9 - GASTRO-ESOPHAGEAL REFLUX DISEASE WITHOUT ESOPHAGITIS Status: Chronic (5) Hypothyroidism Code(s): E03.9 - HYPOTHYROIDISM, UNSPECIFIED Status: Chronic (6) Schizoaffective disorder Code(s): F25.9 - SCHIZOAFFECTIVE DISORDER, UNSPECIFIED Status: Chronic QualifierTitle: Schizoaffective disorder type: bipolar Qualified Code(s) : F25.0 - Schizoaffective disorder, bipolar type - Plan Plan: 1. POD #1 from L knee replacement - Mgmt per Dr. Bettencourt - Stable for D/C to rehab from our perspective - Pain well controlled, infusion in place 2. COPD - Home Spiriva and albuterol/proair PRN - On O2 currently, not chronically at home - Encouraged incentive spirometer - Goal O2 88-92% 3. HTN - Home amlodipine 4. Schizoaffective d/o - Home ziprasidone and prozac 5. GERD - Home omeprazole 6. Hypothyroidism - Home levothyroxine new dose recently, 125 mcg 7. Constipation - Miralax PPX: Omeprazole and ASA/SCDs per Dr. Bettencourt Dispo: Per ortho team, stable from our perspective on home medications to go to rehab <Rabia Rowland - Last Filed: 06/07/17 08:53> Attending Addendum - Attending Addendum Date/Time: 06/07/17 1048 I personally evaluated the patient and discussed the management with Dr. [] I agree with the History, Examination, Assessment and Plan documented above with any addition or exceptions noted below. Mrs. Higuera is sitting in bedside chair; no distress or complaints. She is back on her COPD medications and is having no COPD related problems. We are awaiting placement to SNF for her knee rehab. <Chapincito Cortez - Last Filed: 06/07/17 10:50>
[2017-06-07] MEDS ORDERED: FLU VACC TS2017-18 (>65YR) 0.5 ML SYRINGE IM ONE (09:00)
--- NOTE | 2017-06-07 13:21 | PDOC.FPRHP ---
- Allergies/Adverse Reactions Allergies Allergy/AdvReac Type Severity Reaction Status Date / Time alprazolam [From Xanax] Allergy Verified 06/06/17 17:21 bupropion HCl Allergy Verified 06/06/17 17:21 [From Wellbutrin] divalproex sodium Allergy Verified 06/06/17 17:21 [From Depakote] ranitidine Allergy Verified 06/06/17 17:21 sertraline HCl [From Zoloft] Allergy Verified 06/06/17 17:21 varenicline tartrate Allergy Verified 06/06/17 17:21 [From Chantix] - Home Medications Medication Instructions Recorded Confirmed Type Folic Acid 1 mg PO QAM 03/20/15 05/30/17 History Albuterol Sulfate [Proair HFA] 2 puff INH Q4H PRN 08/01/16 05/30/17 History FLUoxetine HCl [Prozac] 20 mg PO QAM 08/01/16 05/30/17 History Gabapentin [Neurontin] 100 mg PO TID 08/01/16 05/30/17 History amLODIPine Besylate [Amlodipine 2.5 mg PO QAM 09/19/16 05/30/17 History Besylate] Ca/D3/Mag Ox/Zinc/Interventionist/El/Bor 1 tablet PO QAM 09/24/16 05/30/17 History [Calcium 600-D3 Plus Caplet] Omeprazole 40 mg PO QAM 09/24/16 05/30/17 History Albuterol Sulfate [Albuterol 2.5 mg NEB Q4H PRN 01/15/17 05/30/17 History Sulfate Neb] Levothyroxine Sodium [Synthroid] 112 mcg PO 0600 #30 tab 01/15/17 05/30/17 Rx Polyethylene Glycol 3350 [Miralax] 17 gm PO QAM 01/15/17 05/30/17 History Lactulose [Constulose] 2 tablespoon PO PRN PRN 05/30/17 05/30/17 History Tiotropium [Spiriva Handihaler] 2 puff INH QAM 05/30/17 05/30/17 History Ziprasidone HCl 80 mg PO BID 05/30/17 05/30/17 History clonazePAM [Klonopin] 0.5 mg PO TID PRN 05/30/17 05/30/17 History - History PMHx: PSHx: FHx: Social: - Vital signs BP: [] HR: [] RR: [] Tmax: [] Pox: []% on [] Wt: [] FMR H&P: Results - Labs Result Diagrams: 06/07/17 06:12 Lab results: WBC 9.4 thou/uL (4.8-10.8) 06/07/17 06:12 Hgb 8.7 g/dL (12.0-16.0) L 06/07/17 06:12 Hct 27.0 % (36.0-47.0) L 06/07/17 06:12 MCV 90.3 fl (81.0-99.0) 06/07/17 06:12 Plt Count 302 thou/uL (130-400) 06/07/17 06:12 Urine Ketones Negative mg/dL (Negative) 06/06/17 07:15 Urine Blood Negative (Negative) 06/06/17 07:15 Urine Nitrite Negative (Negative) 06/06/17 07:15 Ur Leukocyte Esterase Negative (Negative) 06/06/17 07:15 Urine RBC 0-3 HPF (0-3) 06/06/17 07:15 Urine WBC None Seen HPF (0-3) 06/06/17 07:15 Ur Squamous Epith Cells None Seen HPF (0-3) 06/06/17 07:15 Urine Bacteria None Seen HPF (None Seen) 06/06/17 07:15 FMR H&P: Upper Level - Plan Date/Time: 06/07/17 1320 I, [], have evaluated this patient and agree with findings/plan as outlined by hospital internship resident. Pertinent changes/additions are listed here.
[2017-06-07] MEDS: traMADol HCl 50 MG TAB PO PRN (15:51)
[2017-06-08] MEDS: Dextrose 5 %-0.45 % NaCl 1,000 ML IV SCH ×2 (00:05→11:18)
[2017-06-08] MEDS: Ipratropium Bromide 2.5 ml Neb NEB SCH ×3 (00:56→13:19)
[2017-06-08] MEDS: traMADol HCl 50 MG TAB PO PRN ×2 (03:30→11:03)
[2017-06-08 04:34] LABS: Hemoglobin 8.5 g/dL (12.0-16.0); Mean Corpuscular HGB CONC 32.1 g/dL (32.0-36.0); Mean Corpuscular Volume 90.4 fl (81.0-99.0); Mean Platelet Volume 7.4 fL (7.4-10.4); Platelet Count 275 thou/uL (130-400); RBC Distribution Width 15.5 % (11.5-14.5); Red Blood Cell (RBC) Count 2.93 mill/uL (4.20-5.40); White Blood Cell (WBC) Count 8.1 thou/uL (4.8-10.8)
[2017-06-08] MEDS: Levothyroxine Sodium 125 MCG TAB PO SCH (06:37)
[2017-06-08] MEDS: Ketorolac Tromethamine 30 MG/ML VIAL IVP SCH (06:38)
--- NOTE | 2017-06-08 06:45 | PDOC.FM ---
- Subjective Subjective: Pain is increased this morning but controlled with pain medication. She ate breakfast without issue and is doing incentive spirometry regularly. She is ready to work with PT today. - Objective MAR Reviewed: Yes Vital Signs & Weight: Vital Signs (12 hours) Temp Pulse Resp BP Pulse Ox 06/08/17 00:56 91 20 98 06/07/17 23:45 97.8 F 91 19 112/69 90 L 06/07/17 21:23 98.1 F 87 16 104/56 L 90 L 06/07/17 21:10 98.1 F 87 16 90 L 06/07/17 19:09 90 20 99 Weight Admit Weight 58.967 kg Weight 58.967 kg I&O: 06/06/17 06/07/17 06/08/17 06:59 06:59 06:59 Intake Total 1811 480 Output Total 4400 600 Balance -2589 -120 Result Diagrams: 06/08/17 03:50 Phys Exam - Physical Examination Constitutional: NAD HEENT: moist MMs, sclera anicteric NC in place Neck: no nodes, supple Respiratory: no wheezing, clear to auscultation bilateral Cardiovascular: RRR, no significant murmur Gastrointestinal: soft, non-tender, no distention, positive bowel sounds Musculoskeletal: no edema L knee bandage in place Neurological: non-focal, moves all 4 limbs Psychiatric: normal affect, A&O x 3 Skin: no rash Dx/Plan (1) COPD (chronic obstructive pulmonary disease) Status: Acute (2) Hypertension Code(s): I10 - ESSENTIAL (PRIMARY) HYPERTENSION Status: Acute (3) Bipolar disorder Code(s): F31.9 - BIPOLAR DISORDER, UNSPECIFIED Status: Chronic (4) Gastroesophageal reflux disease Code(s): K21.9 - GASTRO-ESOPHAGEAL REFLUX DISEASE WITHOUT ESOPHAGITIS Status: Chronic (5) Hypothyroidism Code(s): E03.9 - HYPOTHYROIDISM, UNSPECIFIED Status: Chronic (6) Schizoaffective disorder Code(s): F25.9 - SCHIZOAFFECTIVE DISORDER, UNSPECIFIED Status: Chronic Qualifiers: Schizoaffective disorder type: bipolar Qualified Code(s): F25.0 - Schizoaffective disorder, bipolar type - Plan Plan: 1. POD #2 from L knee replacement - Mgmt per Dr. Bettencourt - Sina for D/C to rehab from our perspective - Pain well-controlled 2. COPD - Home Spiriva and albuterol/proair PRN - On O2 currently, not chronically at home - Encouraged incentive spirometer - Goal O2 88-92% 3. HTN - Home amlodipine 4. Schizoaffective d/o - Home ziprasidone and prozac 5. GERD - Home omeprazole 6. Hypothyroidism - Home levothyroxine new dose recently, 125 mcg 7. Constipation - Miralax - Senna 8. Anemia - If here tomorrow, will add iron studies - Likely anemia of chronic disease - Continue PO iron PPX: Omeprazole and ASA/SCDs per Dr. Bettencourt Dispo: Per ortho team, stable from our perspective on home medications to go to rehab
[2017-06-08] MEDS: Gabapentin 100 MG CAP PO SCH ×2 (09:59→13:57)
[2017-06-08] MEDS: Senokot S 8.6-50 MG TAB PO SCH (10:00)
[2017-06-08] MEDS: Amlodipine 5 MG TAB PO SCH (10:00)
[2017-06-08] MEDS: Ferrous Gluconate 324 MG TAB PO SCH (10:00)
[2017-06-08] MEDS: Folic Acid 1 MG TAB PO SCH (10:00)
[2017-06-08] MEDS: Multivitamin W/ Minerals 1 TAB PO SCH (10:00)
[2017-06-08] MEDS: FLUoxetine HCl 20 MG CAP PO SCH (10:01)
[2017-06-08] MEDS: Polyethylene Glycol 3350 17 GM Packet PO SCH (10:01)
[2017-06-08] MEDS: Aspirin 81 mg Enteric Coated Tablet PO SCH (10:01)
[2017-06-08 11:43] VITALS: BP 150/84; TEMP 98
--- NOTE | 2017-06-09 13:13 | DIS ---
DATE OF ADMISSION: 06/06/2017 DATE OF DISCHARGE: 06/08/2017 ADMISSION DIAGNOSIS: End-stage tricompartmental osteoarthritis, left knee. DISCHARGE DIAGNOSIS: End-stage tricompartmental osteoarthritis, left knee. OPERATIVE PROCEDURE: Left total knee arthroplasty. CONSULTANTS: [facility] for acute postop pain management and [facility] for medical management. BRIEF CLINICAL HISTORY: The patient is a 67-year-old female, who was admitted to [facility] and underwent the above elective procedure on the date of admission without intra, per i, or postoperative complication. The hospital course was unremarkable. At the time of discharge, t he patient is afebrile, ambulatory without assistance utilizing a rolling walker in a full weightbear ing fashion, tolerating a regular diet, and voiding without difficulty. The patient's incision is cl morenita and closed without any erythema. DISCHARGE MEDICATIONS: Please see medication reconciliation form. We will be happy to see the patient on an as needed basis between now and her next scheduled appointm ent. CONDITION ON DISCHARGE: Stable. PROGNOSIS: Good.
== END 2017-06-08 14:30 | disposition home or self-care (01) ==
LOC: SDC 05:33 → SURG B 08:54 → SDC 06-08 14:30
PROVIDERS: ATTEND Orthopaedic Surgery
PROC: 0SRD0J9 Replacement of Left Knee Joint with Synthetic Substitute, Cemented, Open Approach (ICD-10-PCS; principal; 2017-06-06)
DX: M17.12 Unilateral primary osteoarthritis, left knee (principal); F41.9 Anxiety disorder, unspecified; F25.9 Schizoaffective disorder, unspecified; J44.9 Chronic obstructive pulmonary disease, unspecified; M85.80 Other specified disorders of bone density and structure, unspecified site; E03.9 Hypothyroidism, unspecified; E74.39 Other disorders of intestinal carbohydrate absorption; K59.09 Other constipation; I11.0 Hypertensive heart disease with heart failure; I50.30 Unspecified diastolic (congestive) heart failure; K76.0 Fatty (change of) liver, not elsewhere classified; H40.9 Unspecified glaucoma; Z66 Do not resuscitate; Z79.899 Other long term (current) drug therapy; Z88.0 Allergy status to penicillin; Z88.8 Allergy status to other drugs, medicaments and biological substances; Z90.49 Acquired absence of other specified parts of digestive tract; Z98.891 History of uterine scar from previous surgery; Z98.890 Other specified postprocedural states; Z87.891 Personal history of nicotine dependence; Z86.711 Personal history of pulmonary embolism
CPT/HCPCS: 27447; 81001; 85027; 87086; 94640 ×3; 97110 ×2; 97116 ×3; 97139 ×3; 97150; 97530 ×2; 97535; A4306; C1713; C1776; G0008; G8978; G8979; G8987; G8988; Q2036; 36415; 90471; 90682; J1100; J1885; J2001; J2250; J2405; J2704; J2795; J3010; J3370; J7644; S0020

== ENCOUNTER 2017-06-30 21:59 | Emergency (ER) | payer MEDICARE, OTHER ==
[2017-06-30 22:51] LABS: #Basophils 0.1 thou/uL (0.0-0.2); #Eosinphils 0.3 thou/uL (0.0-0.7); #Lymphocytes 2.2 thou/uL (1.20-3.40); #Monocytes 0.6 thou/uL (0.11-0.59); #Neutrophils 4.5 thou/uL (1.40-6.50); %Basophils 0.8 % (0.0-1.0); %Eosinophils 3.7 % (0.0-10.0); %Lymphocytes 28.6 % (21.0-51.0); %Monocytes 7.5 % (0.0-10.0); %Neutrophils 59.4 % (42.0-75.0); Hemoglobin 8.9 g/dL (12.0-16.0); Mean Corpuscular HGB CONC 32.5 g/dL (32.0-36.0); Mean Corpuscular Hemoglobin 29.1 pg (27.0-31.0); Mean Corpuscular Volume 89.6 fl (81.0-99.0); Mean Platelet Volume 6.3 fL (7.4-10.4); Platelet Count 327 thou/uL (130-400); Red Blood Cell (RBC) Count 3.05 mill/uL (4.20-5.40); White Blood Cell (WBC) Count 7.6 thou/uL (4.8-10.8)
--- NOTE | 2017-06-30 23:05 | RAD ---
PORTABLE UPRIGHT FRONTAL CHEST RADIOGRAPH: 06/30/17 COMPARISON: 05/15/17. HISTORY: Productive cough. FINDINGS: Mild interstitial prominence noted in both lung bases, stable. No pneumothorax or pleural fluid. No f ocal consolidation, or alveolar edema. IMPRESSION: Stable frontal chest radiograph - no acute findings. POS: [facility]
[2017-06-30 23:09] LABS: ALT (SGPT) 31 U/L (8-55); AST (SGOT) 21 U/L (5-34); Albumin 3.7 g/dL (3.4-4.8); Alkaline Phosphatase 309 U/L (40-150); Anion Gap 14 mmol/L (10-20); BUN (Urea Nitrogen) 10 mg/dL (9.8-20.1); Bilirubin, Total 0.2 mg/dL (0.2-1.2); Calc. Creatinine Clearance 0 mL/min (70-130); Calcium 9.5 mg/dL (7.8-10.44); Carbon Dioxide 24 mmol/L (23-31); Chloride 101 mmol/L (98-107); Estimated GFR-MDRD 73; Globulin 3.3 g/dL (2.4-3.5); Glucose 142 mg/dL (80-115); Potassium 3.7 mmol/L (3.5-5.1); Sodium 135 mmol/L (136-145)
[2017-06-30] MEDS ORDERED: Azithromycin 250 MG TAB ONE (23:28)
== END 2017-07-01 00:35 | disposition home or self-care (01) ==
LOC: ERS 21:59
DX: J40 Bronchitis, not specified as acute or chronic (principal); D64.9 Anemia, unspecified; K21.9 Gastro-esophageal reflux disease without esophagitis; I10 Essential (primary) hypertension; J43.9 Emphysema, unspecified; M41.9 Scoliosis, unspecified; F41.9 Anxiety disorder, unspecified; F31.9 Bipolar disorder, unspecified; Z87.891 Personal history of nicotine dependence; Z79.899 Other long term (current) drug therapy
CPT/HCPCS: 36415; 71045; 80053; 85025; 87804

== ENCOUNTER 2017-08-02 20:55 | Emergency (ER) | payer MEDICARE, MEDICAID ==
[2017-08-02 21:45] LABS: Bilirubin Negative (Negative); Blood, Urine Negative (Negative); Clarity Clear (Clear); Glucose, Urine (Dipstick) Negative (Negative); Leukocyte Negative (Negative); Nitrite Negative (Negative); Protein, Urine (Dipstick) Negative (Neg-Trace); Specific Gravity, Urine 1.003 (1.002-1.036); Urobilinogen 0.2 mg/dL (0.2-1.0)
[2017-08-03 00:34] LABS: #Basophils 0.1 thou/uL (0.0-0.2); #Eosinphils 0.3 thou/uL (0.0-0.7); #Lymphocytes 2.6 thou/uL (1.20-3.40); #Monocytes 0.7 thou/uL (0.11-0.59); #Neutrophils 4.4 thou/uL (1.40-6.50); %Basophils 0.8 % (0.0-1.0); %Eosinophils 3.6 % (0.0-10.0); %Lymphocytes 32.7 % (21.0-51.0); %Neutrophils 54.8 % (42.0-75.0); Hemoglobin 10.2 g/dL (12.0-16.0); Mean Corpuscular HGB CONC 32.4 g/dL (32.0-36.0); Mean Corpuscular Hemoglobin 28.2 pg (27.0-31.0); Mean Corpuscular Volume 86.9 fl (81.0-99.0); Mean Platelet Volume 6.4 fL (7.4-10.4); Platelet Count 305 thou/uL (130-400); RBC Distribution Width 14.9 % (11.5-14.5)
[2017-08-03 00:52] LABS: Anion Gap 9 mmol/L (10-20); BUN (Urea Nitrogen) 11 mg/dL (9.8-20.1); Calc. Creatinine Clearance 0 mL/min (70-130); Calcium 10.2 mg/dL (7.8-10.44); Carbon Dioxide 28 mmol/L (23-31); Chloride 104 mmol/L (98-107); Estimated GFR-MDRD 69; Glucose 108 mg/dL (80-115); Potassium 3.9 mmol/L (3.5-5.1); Sodium 137 mmol/L (136-145)
[2017-08-03] MEDS ORDERED: Morphine 4 MG/ML VIAL ONE (01:54)
--- NOTE | 2017-08-03 08:45 | RAD ---
FRONTAL AND LATERAL RADIOGRAPH THORACIC SPINE: DATE: 08/03/17. COMPARISON: None. HISTORY: Chronic back pain. FINDINGS: Thoracic pedicles appear intact on frontal imaging. Very mild S-shaped scoliotic curvature of the th oracic spine noted. Right lateral osteophyte formation noted at T9-10. No acute fracture. No anter olisthesis or retrolisthesis on lateral imaging. IMPRESSION: Degenerative change. No acute osseous abnormality. POS: [facility]
== END 2017-08-03 02:15 | disposition home or self-care (01) ==
LOC: ERS 20:55
DX: G89.29 Other chronic pain (principal); K21.9 Gastro-esophageal reflux disease without esophagitis; I10 Essential (primary) hypertension; J44.9 Chronic obstructive pulmonary disease, unspecified; K56.609 Unspecified intestinal obstruction, unspecified as to partial versus complete obstruction; F41.9 Anxiety disorder, unspecified; M41.9 Scoliosis, unspecified; F31.9 Bipolar disorder, unspecified; Z87.891 Personal history of nicotine dependence; Z79.899 Other long term (current) drug therapy
CPT/HCPCS: 36415; 72072; 80048; 81001; 85025; 87086; 96372; J2270

== ENCOUNTER 2017-09-20 08:34 | Outpatient (CLI) | payer MEDICARE, MEDICAID | END 2017-09-20 08:35 | disposition home or self-care (01) | LOC: BICULT 08:34 | PROVIDERS: ATTEND Family Medicine | DX: R74.8 Abnormal levels of other serum enzymes (principal); K76.0 Fatty (change of) liver, not elsewhere classified | CPT/HCPCS: 76705 ==

== ENCOUNTER 2017-09-28 14:19 | Outpatient (CLI) | payer MEDICARE, MEDICAID | END 2017-09-28 14:20 | disposition home or self-care (01) | LOC: BICMAMMO 14:19 | PROVIDERS: ATTEND Student in an Organized Health Care Education/Training Program | DX: Z12.31 Encounter for screening mammogram for malignant neoplasm of breast (principal); Z78.0 Asymptomatic menopausal state; Z80.3 Family history of malignant neoplasm of breast | CPT/HCPCS: 77063; 77067; 77080 ==

== ENCOUNTER 2017-10-01 10:49 | Emergency (ER) | payer MEDICARE, OTHER ==
[2017-10-01 11:50] LABS: Bilirubin Negative (Negative); Blood, Urine Negative (Negative); Clarity CLOUDY (Clear); Glucose, Urine (Dipstick) Negative (Negative); Leukocyte Large (Negative); Nitrite Negative (Negative); Protein, Urine (Dipstick) Negative (Neg-Trace); Specific Gravity, Urine 1.011 (1.002-1.036); Urobilinogen 0.2 mg/dL (0.2-1.0)
[2017-10-01 11:52] LABS: Bacteria/HPF None Seen HPF (None Seen); Hyaline Casts/LPF 0-3 HYALINE CAST LPF (0-3 Hyaline); Pathc Cast-AUWi Flag 0.72 (0-2.49); RBC/HPF 0-3 HPF (0-3)
[2017-10-01 13:16] LABS: #Basophils 0.1 thou/uL (0.0-0.2); #Eosinphils 0.2 thou/uL (0.0-0.7); #Lymphocytes 2.3 thou/uL (1.20-3.40); #Monocytes 0.8 thou/uL (0.11-0.59); #Neutrophils 6.4 thou/uL (1.40-6.50); %Basophils 0.8 % (0.0-1.0); %Eosinophils 1.6 % (0.0-10.0); %Lymphocytes 23.2 % (21.0-51.0); %Monocytes 8.2 % (0.0-10.0); %Neutrophils 66.2 % (42.0-75.0); Hemoglobin 11.6 g/dL (12.0-16.0); Mean Corpuscular HGB CONC 33.7 g/dL (32.0-36.0); Mean Corpuscular Hemoglobin 30.6 pg (27.0-31.0); Mean Corpuscular Volume 90.6 fl (81.0-99.0); Mean Platelet Volume 6.5 fL (7.4-10.4); Platelet Count 279 thou/uL (130-400); RBC Distribution Width 16.2 % (11.5-14.5); Red Blood Cell (RBC) Count 3.81 mill/uL (4.20-5.40); White Blood Cell (WBC) Count 9.7 thou/uL (4.8-10.8)
[2017-10-01 13:35] LABS: ALT (SGPT) 19 U/L (8-55); AST (SGOT) 19 U/L (5-34); Alkaline Phosphatase 250 U/L (40-150); Anion Gap 14 mmol/L (10-20); BUN (Urea Nitrogen) 10 mg/dL (9.8-20.1); Bilirubin, Total 0.2 mg/dL (0.2-1.2); Calc. Creatinine Clearance 0 mL/min (70-130); Calcium 9.5 mg/dL (7.8-10.44); Carbon Dioxide 22 mmol/L (23-31); Chloride 106 mmol/L (98-107); Estimated GFR-MDRD 61; Globulin 3.8 g/dL (2.4-3.5); Glucose 91 mg/dL (80-115); Potassium 3.7 mmol/L (3.5-5.1); Protein, Total 7.8 g/dL (6.0-8.3); Sodium 138 mmol/L (136-145)
== END 2017-10-01 15:20 | disposition home or self-care (01) ==
LOC: ERS 10:49
DX: K64.9 Unspecified hemorrhoids (principal); R19.7 Diarrhea, unspecified; K21.9 Gastro-esophageal reflux disease without esophagitis; I10 Essential (primary) hypertension; J44.9 Chronic obstructive pulmonary disease, unspecified; F41.9 Anxiety disorder, unspecified; F31.9 Bipolar disorder, unspecified; Z87.891 Personal history of nicotine dependence; Z79.899 Other long term (current) drug therapy
CPT/HCPCS: 80053; 81003; 81015; 85025; 87086; 96360; 96361

== ENCOUNTER 2018-03-29 20:15 | Observation (INO) | payer MEDICARE, OTHER ==
[2018-03-29 20:47] LABS: #Basophils 0.1 thou/uL (0.0-0.2); #Eosinphils 0.2 thou/uL (0.0-0.7); #Lymphocytes 1.9 thou/uL (1.20-3.40); #Monocytes 0.5 thou/uL (0.11-0.59); #Neutrophils 2.3 thou/uL (1.40-6.50); %Basophils 1.2 % (0.0-1.0); %Eosinophils 3.2 % (0.0-10.0); %Lymphocytes 37.8 % (21.0-51.0); %Monocytes 10.8 % (0.0-10.0); %Neutrophils 47.1 % (42.0-75.0); Hemoglobin 12.8 g/dL (12.0-16.0); Mean Corpuscular HGB CONC 33.2 g/dL (32.0-36.0); Mean Corpuscular Hemoglobin 30.8 pg (27.0-31.0); Mean Platelet Volume 6.7 fL (7.4-10.4); Platelet Count 282 thou/uL (130-400); RBC Distribution Width 12.8 % (11.5-14.5); Red Blood Cell (RBC) Count 4.14 mill/uL (4.20-5.40)
[2018-03-29] MEDS ORDERED: Albuterol Sulfate 2.5 mg/3 ml Neb ONE ×2 (20:53)
[2018-03-29] MEDS ORDERED: Dexamethasone 10 MG/ML VIAL ONE (20:54)
[2018-03-29] MEDS ORDERED: Magnesium 2 GM/50 ML BAG (IN WATER) ONE (20:54)
--- NOTE | 2018-03-29 20:59 | RAD ---
UPRIGHT PORTABLE CHEST ONE VIEW: 03/29 HISTORY: 68-year-old female with history of shortness of breath for one week, history of COPD and emphysema. COMPARISON: 06/30/17. There are some hyperinflation changes in the upper lung zones with some increased linear and intersti tial markings in the bases having more of a chronic appearance. No confluent pneumonia, overt edema or pleural effusion. IMPRESSION: Evidence for stable chronic lung changes. No evidence for other significant acute process. POS: [facility]
[2018-03-29 21:13] LABS: ALT (SGPT) 19 U/L (8-55); AST (SGOT) 21 U/L (5-34); Albumin 3.5 g/dL (3.4-4.8); Alkaline Phosphatase 249 U/L (40-150); Anion Gap 14 mmol/L (10-20); BUN (Urea Nitrogen) 8 mg/dL (9.8-20.1); Bilirubin, Total 0.2 mg/dL (0.2-1.2); CK (CPK) 131 U/L (29-168); Calc. Creatinine Clearance 0 mL/min (70-130); Calcium 8.9 mg/dL (7.8-10.44); Carbon Dioxide 26 mmol/L (23-31); Chloride 103 mmol/L (98-107); Estimated GFR-MDRD 67; Globulin 3.8 g/dL (2.4-3.5); Glucose 133 mg/dL (80-115); Lipase 17 U/L (8-78); Protein, Total 7.3 g/dL (6.0-8.3); Sodium 140 mmol/L (136-145)
[2018-03-29 21:21] LABS: Potassium 2.6 mmol/L (3.5-5.1)
[2018-03-29] MEDS ORDERED: Potassium Chloride 20 MEQ TAB ONE (21:24)
[2018-03-29 21:48] LABS: Bilirubin Negative (Negative); Blood, Urine Negative (Negative); Clarity CLEAR (Clear); Glucose, Urine (Dipstick) Negative (Negative); Leukocyte Small (Negative); Nitrite Negative (Negative); Protein, Urine (Dipstick) Negative (Neg-Trace); Specific Gravity, Urine 1.006 (1.002-1.036); Urobilinogen 0.2 mg/dL (0.2-1.0)
[2018-03-29 21:51] LABS: Bacteria/HPF None Seen HPF (None Seen); Hyaline Casts/LPF 0-3 HYALINE CAST LPF (0-3 Hyaline); Pathc Cast-AUWi Flag 0.14 (0-2.49); RBC/HPF 0-3 HPF (0-3); Squamous Epithelial 0-3 HPF (0-3); WBC/HPF 0-3 HPF (0-3)
[2018-03-29] MEDS ORDERED: Iopamidol-370 76% 500 ML 1 ML ONE (21:55)
--- NOTE | 2018-03-29 22:11 | CT ---
CT ANGIO OF CHEST WITH 3D RENDERIN03/29/18 HISTORY: 68-year-old female with shortness of breath for one week with history of COPD and emphysema. COMPARISON: 05/16/17. FINDINGS: There is some bilateral emphysema changes and scattered linear chronic lung changes and some peribron chial thickening, all evidence for chronic lung disease. There is an approximately 0.5 cm diameter no dule node in the right upper lobe, image 30, series 2. There is no convincing CT evidence for acute p ulmonary embolism. There are some bilateral enlarged hilar lymph nodes. These are slightly larger th an on the prior study of 05/16/17. There is some borderline sized mediastinal lymph nodes which do not appear to be significantly changed. No pleural effusion or pericardial effusion. Small hiatal hernia . IMPRESSION: No convincing CT evidence for acute pulmonary embolism. Minimally enlarged bilateral hilar lymph node s slightly increased in size from the prior 05/16/17 study. Hyperinflation and chronic lung changes bi laterally. Small 0.5 nodule in the right upper lobe. Consider three months followup chest CT scan for further evaluation. Code LN POS: [facility]
--- NOTE | 2018-03-29 23:15 | PDOC.FPRHP ---
- History of Present Illness Chief Complaint: SOB History of Present Illness: Ms. Baldwin presents to the ED with SOB She reports she began smoking again after "man troubles" last week and since then has had increasing shortness of breath and nebulizer use. She has been taking her other medications as prescribed. She reports a productive cough of white sputum and feverish feeling. she denies any chest pain, palpitation, n/v/d , syncope, or decreased PO intake. ED Course: Duonebs, albuterol, kclor, decadron, Levaquin magnesium CBC, CMP, Ddimer, CTA, lipase, flu, trop O2 dropped to 87%, placed on 2L NC - Allergies/Adverse Reactions Allergies Allergy/AdvReac Type Severity Reaction Status Date / Time alprazolam [From Xanax] Allergy Verified 03/29/18 23:51 divalproex sodium Allergy Verified 06/06/17 17:21 [From Depakote] ranitidine Allergy Verified 06/06/17 17:21 sertraline HCl [From Zoloft] Allergy Verified 03/29/18 23:51 varenicline tartrate Allergy Verified 03/29/18 23:51 [From Chantix] - Home Medications Medication Instructions Recorded Confirmed Type Folic Acid 1 mg PO DAILY 03/20/15 03/30/18 History FLUoxetine HCl [Prozac] 20 mg PO QAM 08/01/16 03/29/18 History Gabapentin [Neurontin] 100 mg PO TID 08/01/16 03/29/18 History Omeprazole 40 mg PO DAILY 09/24/16 03/29/18 History Ziprasidone HCl 80 mg PO BID 05/30/17 03/29/18 History Acetaminophen [Pain Relief] 500 mg PO Q8HR PRN 03/29/18 03/29/18 History Atorvastatin Calcium [Lipitor] 10 mg PO HS 03/29/18 03/30/18 History Amlodipine [Norvasc] 2.5 mg PO QAM #30 tab 03/30/18 Rx Doxycycline [Vibramycin] 100 mg PO BID #10 cap 03/30/18 Rx Levothyroxine Sodium [Synthroid] 137 mcg PO DAILY 03/30/18 03/29/18 History predniSONE 40 mg PO DAILY #5 tab 03/30/18 Rx - History PMHx:COPD, HTN, GERD PSHx: Cholecystectomy FHx: NC Social: 80+ pack year smoking history - Review of Systems General: reports: fever/chills, fatigue. denies: weight/appetite/sleep changes , night sweats Eyes: denies: vision changes ENT: denies: nasal congestion, rhinorrhea Respiratory: reports: cough, congestion, shortness of breath Cardiovascular: denies: chest pain, palpitation, edema Gastrointestinal: reports: diarrhea. denies: nausea, vomiting Genitourinary: denies: incontinence, dysuria Skin: denies: rashes, lesions, jaundice Musculoskeletal: denies: pain, tenderness Neurological: denies: numbness, syncope - Vital signs BP: 180/89 HR: 88 RR: 22 Tmax: 98.4 Pox: 94% on 2L Wt: 57kg - Physical Exam Constitutional: NAD, awake, alert and oriented HEENT: normocephalic and atraumatic, grossly normal vision, grossly normal hearing, MMM, oropharynx clear Neck: supple, trachea midline Chest: no-tender to palpation Heart: RRR, normal S1/S2, no murmurs/rubs/gallops, pulses present Lungs: other (poor air movement, b/l wheeze and ronchi) Abdomen: soft, non-tender Musculoskeletal: normal structure, normal tone Neurological: no focal deficit, CN II-XII intact Skin: no rash/lesions, good turgor Heme/Lymphatic: no unusual bruising or bleeding Psychiatric: normal mood and affect FMR H&P: Results - Labs Result Diagrams: 03/30/18 02:03 03/30/18 02:03 Lab results: WBC 5.0 thou/uL (4.8-10.8) 03/29/18 20:35 Hgb 12.8 g/dL (12.0-16.0) 03/29/18 20:35 Hct 38.5 % (36.0-47.0) 03/29/18 20:35 MCV 93.0 fL (78.0-98.0) 03/29/18 20:35 Plt Count 282 thou/uL (130-400) 03/29/18 20:35 Neutrophils % 47.1 % (42.0-75.0) 03/29/18 20:35 Sodium 140 mmol/L (136-145) 03/29/18 20:35 Potassium 2.6 mmol/L (3.5-5.1) L* 03/29/18 20:35 Chloride 103 mmol/L (98-107) 03/29/18 20:35 Carbon Dioxide 26 mmol/L (23-31) 03/29/18 20:35 BUN 8 mg/dL (9.8-20.1) L 03/29/18 20:35 Creatinine 0.84 mg/dL (0.6-1.1) 03/29/18 20:35 Glucose 133 mg/dL (80-115) H 03/29/18 20:35 Lactic Acid 1.8 mmol/L (0.5-2.2) 03/29/18 20:35 Calcium 8.9 mg/dL (7.8-10.44) 03/29/18 20:35 Total Bilirubin 0.2 mg/dL (0.2-1.2) 03/29/18 20:35 AST 21 U/L (5-34) 03/29/18 20:35 ALT 19 U/L (8-55) 03/29/18 20:35 Alkaline Phosphatase 249 U/L (40-150) H 03/29/18 20:35 Creatine Kinase 131 U/L (29-168) 03/29/18 20:35 B-Natriuretic Peptide 45.5 pg/mL (0-100) 03/29/18 20:35 Serum Total Protein 7.3 g/dL (6.0-8.3) 03/29/18 20:35 Albumin 3.5 g/dL (3.4-4.8) 03/29/18 20:35 Lipase 17 U/L (8-78) 03/29/18 20:35 Urine Ketones Negative mg/dL (Negative) 03/29/18 21:32 Urine Blood Negative (Negative) 03/29/18 21:32 Urine Nitrite Negative (Negative) 03/29/18 21:32 Ur Leukocyte Esterase Small (Negative) H 03/29/18 21:32 Urine RBC 0-3 HPF (0-3) 03/29/18 21:32 Urine WBC 0-3 HPF (0-3) 03/29/18 21:32 Ur Squamous Epith Cells 0-3 HPF (0-3) 03/29/18 21:32 Urine Bacteria None Seen HPF (None Seen) 03/29/18 21:32 FMR H&P: A/P - Problem List (1) COPD with acute exacerbation Status: Acute Code(s): J44.1 - CHRONIC OBSTRUCTIVE PULMONARY DISEASE W (ACUTE ) EXACERBATION (2) Hypokalemia Status: Acute Code(s): E87.6 - HYPOKALEMIA (3) Elevated d-dimer Status: Acute Code(s): R79.89 - OTHER SPECIFIED ABNORMAL FINDINGS OF BLOOD CHEMISTRY (4) Hypertension Status: Acute Code(s): I10 - ESSENTIAL (PRIMARY) HYPERTENSION (5) Gastroesophageal reflux disease Status: Chronic Code(s): K21.9 - GASTRO-ESOPHAGEAL REFLUX DISEASE WITHOUT ESOPHAGITIS - Plan COPD exacerbation - increased respiratory effort, increased O2 requirement - WBC normal, procal pending, afebrile - predisone 40x5 days, azithromycin, duonebs q4hr scheduled, albuterol q2hr prn - LR 100 ml/hr for insatiable losses Hypokalemia - repleted in ED, recheck and monitor Elevated Ddimer - .53 in ED, CTA neg - PE r/o HTN - elevated in ED, PRN hydralazine - continue home medications GERD - continue home medications code: DNR, out of hospital DNR in purse, pt made decision ppx: lovenox Disposition/LOS: observation on medical, monitor respiratory status FMR H&P: Upper Level - Plan Date/Time: 03/29/18 2312 Quoc Fuchs, have evaluated this patient and agree with findings/plan as outlined by internet sourcer resident. Pertinent changes/additions are listed here. 68 y/o F with COPD presents with SOB. States she has a long smoking history, but has stopped for a year. Started back last week 2/2 man problems. Has had associated chills, excess sputum. Denies Chest pain, abdominal pain, leg edema, AC, weakness, focal deficits, dysuria. States she feels better after receiving breathing treatments. CTA negative for PE after elevated d-dimer. EXAM: Diffuse wheezing b/l, otherwise agree with internet sourcer's exam. CXR Reviewed w/ o abnormality Assessment/Plan 1.Hypoxic respiratory Failure 2/2 COPD Exacerbation Has recorded several readings at 87% O2, and now on 2L O2. Diffuse wheezing, but improved with Duo- nebs. Will continue and continue steroids. Abx as needed. COntinue IVF. 2.HTN Elevated in ED. Will order home medications and maintain BP <160/90 3.Schizoaffective & bipolar disorder Not currently medicated 4.Hepatic Steatosis No acute issues 5.GERD continue PPI 6. Hypokalemia - replete and monitor Attending Addendum - Attending Addendum Date/Time: 03/29/18 6542 I personally evaluated the patient and discussed the management with Dr. Clark and Dr. Taylor I agree with the History, Examination, Assessment and Plan documented above with any addition or exceptions noted below. 68 yo female with COPD presents for progressive SOB Patient reports progressive SOB with increased sputum production and occasional chills over the past week. Symptoms began to progress after re-starting tobacco use. VS reviewed. Labs reviewed. Imaging reviewed. Acute hypoxic RF due to COPD exacerbation: Supplemental O2 as needed. Scheduled breathing treatments. Daily steroids. Due to change in sputum with shills will add Antibiotics if procal elevated above 0.2. Encourage tobacco cessation. Adjust home meds as needed. Monitor other co-morbid conditions. Kulwinder
[2018-03-29] MEDS ORDERED: Albuterol Sulfate 2.5 mg/3 ml Neb NEB PRN (23:33)
[2018-03-29] MEDS ORDERED: Acetaminophen 325 MG TAB PO PRN (23:33)
[2018-03-30] MEDS: Lactated Ringer's 1,000 ML IV SCH ×2 (00:21→08:11)
[2018-03-30 00:42] VITALS: BMI 23.3
[2018-03-30 02:20] LABS: #Lymphocytes 0.4 thou/uL (1.20-3.40); #Neutrophils 3.6 thou/uL (1.40-6.50); %Eosinophils 0.3 % (0.0-10.0); %Lymphocytes 10.7 % (21.0-51.0); %Monocytes 0.9 % (0.0-10.0); Mean Corpuscular HGB CONC 33.5 g/dL (32.0-36.0); Mean Corpuscular Volume 92.6 fL (78.0-98.0); Platelet Count 255 thou/uL (130-400); RBC Distribution Width 12.8 % (11.5-14.5); Red Blood Cell (RBC) Count 3.86 mill/uL (4.20-5.40); White Blood Cell (WBC) Count 4.1 thou/uL (4.8-10.8)
[2018-03-30 02:40] LABS: Anion Gap 12 mmol/L (10-20); BUN (Urea Nitrogen) 8 mg/dL (9.8-20.1); Calc. Creatinine Clearance 61 mL/min (70-130); Calcium 8.5 mg/dL (7.8-10.44); Carbon Dioxide 25 mmol/L (23-31); Chloride 106 mmol/L (98-107); Estimated GFR-MDRD 73; Glucose 222 mg/dL (80-115); Potassium 3.1 mmol/L (3.5-5.1); Sodium 140 mmol/L (136-145)
[2018-03-30 02:50] LABS: ALT (SGPT) 31 U/L (8-55); AST (SGOT) 41 U/L (5-34); Albumin 3.4 g/dL (3.4-4.8); Alkaline Phosphatase 253 U/L (40-150); Anion Gap 13 mmol/L (10-20); BUN (Urea Nitrogen) 8 mg/dL (9.8-20.1); Bilirubin, Total Less than 0.2 mg/dL (0.2-1.2); Calc. Creatinine Clearance 61 mL/min (70-130); Calcium 8.5 mg/dL (7.8-10.44); Carbon Dioxide 25 mmol/L (23-31); Chloride 106 mmol/L (98-107); Estimated GFR-MDRD 72; Globulin 3.6 g/dL (2.4-3.5); Glucose 223 mg/dL (80-115); Potassium 3.1 mmol/L (3.5-5.1); Sodium 141 mmol/L (136-145)
[2018-03-30] MEDS ORDERED: Nicotine 14 MG PATCH TD SCH (06:00)
--- NOTE | 2018-03-30 06:41 | PDOC.FM ---
- Subjective Subjective: No events overnight. Patient did well and is feeling better. No complaints or concerns this morning. Patient reports feeling better. Denies SOB, chest pain, abdominal pain, fever/chills, NVD. Patient states she is ready to go home. - Objective Vital Signs & Weight: Vital Signs (12 hours) Temp Pulse Resp BP Pulse Ox 03/30/18 03:56 98 F 88 20 172/110 H 93 L 03/30/18 02:31 84 20 03/29/18 23:33 98.3 F 92 18 134/85 93 L Weight Weight 57.969 kg I&O: 03/28/18 03/29/18 03/30/18 06:59 06:59 06:59 Intake Total 1164 Output Total 1975 Balance -811 Result Diagrams: 03/30/18 02:03 03/30/18 02:03 Phys Exam - Physical Examination Constitutional: NAD HEENT: PERRLA, moist MMs, sclera anicteric Neck: supple, full ROM exp wheeze on RLL Cardiovascular: RRR Gastrointestinal: soft, non-tender, no distention, positive bowel sounds Musculoskeletal: no edema, pulses present Neurological: non-focal, moves all 4 limbs Psychiatric: normal affect, A&O x 3 Skin: no rash Dx/Plan (1) Elevated d-dimer Code(s): R79.89 - OTHER SPECIFIED ABNORMAL FINDINGS OF BLOOD CHEMISTRY Status : Acute (2) Hypokalemia Code(s): E87.6 - HYPOKALEMIA Status: Acute (3) COPD with acute exacerbation Code(s): J44.1 - CHRONIC OBSTRUCTIVE PULMONARY DISEASE W (ACUTE) EXACERBATION Status: Acute (4) Hypertension Code(s): I10 - ESSENTIAL (PRIMARY) HYPERTENSION Status: Acute (5) Gastroesophageal reflux disease Code(s): K21.9 - GASTRO-ESOPHAGEAL REFLUX DISEASE WITHOUT ESOPHAGITIS Status: Chronic - Plan Plan: COPD exacerbation - increased respiratory effort, increased O2 requirement - WBC normal, procal pending, afebrile - predisone 40x5 days, azithromycin, duonebs q4hr scheduled, albuterol q2hr prn - LR 100 ml/hr for insatiable losses - will d/c today as patient is tolerated PO Hypokalemia - repleted in ED, recheck and monitor w/ BMP daily - 3.1 on 03/30 - will replete as necessary Elevated Ddimer - 0.53 in ED, CTA neg - PE r/o HTN - elevated in ED, PRN hydralazine - continue home medications GERD - continue home medications Dispo: monitor resp status on tele/obs - likely discharge today code: DNR, out of hospital DNR in kelsi pt made decision ppx: lovenox
[2018-03-30] MEDS ORDERED: Potassium Chloride 20 MEQ TAB PO SCH (08:00)
[2018-03-30 08:02] VITALS: BP 150/103; TEMP 98.2
[2018-03-30 08:50] LABS: Phosphorus 2.4 mg/dL (2.3-4.7)
[2018-03-30] MEDS ORDERED: Folic Acid 1 MG TAB PO SCH (09:00)
[2018-03-30] MEDS ORDERED: Amlodipine 5 MG TAB PO SCH (09:00)
[2018-03-30] MEDS ORDERED: FLUoxetine HCl 20 MG CAP PO SCH (09:00)
[2018-03-30] MEDS ORDERED: Doxycycline 100 MG CAP PO SCH (09:00)
[2018-03-30] MEDS ORDERED: predniSONE 20 MG TAB PO SCH (09:00)
[2018-03-30] MEDS ORDERED: ZIPRASIDONE HCL 80 MG PO SCH (09:00)
[2018-03-30] MEDS ORDERED: Enoxaparin Sodium 40 MG/0.4 ML SYRINGE SC SCH (09:00)
[2018-03-30] MEDS ORDERED: Gabapentin 100 MG CAP PO SCH (09:00)
--- NOTE | 2018-03-30 13:02 | PRG ---
DATE OF SERVICE: 03/30/2018 This is an addendum to the note of Dr. Maritne Berry. Ms. Baldwin is a pleasant 68-year-old white female with a history of COPD. She was admitted with an exacerbation of COPD and was given steroids, DuoNebs, and azithromycin. She already looks and feels much better, and ready for discharge. We will complete her 5-day course of prednisone to follow up with her PCP at the clinic. Job ID: [id number]
[2018-03-30] MEDS ORDERED: Atorvastatin Calcium 10 MG TAB PO SCH (21:00)
[2018-03-31] MEDS ORDERED: Levothyroxine Sodium 112 MCG TAB PO SCH (06:00)
[2018-03-31] MEDS ORDERED: Levothyroxine Sodium 25 MCG TAB PO SCH (06:00)
--- NOTE | 2018-03-31 13:17 | EKG ---
Test Reason : ER INDICATION Blood Pressure : / mmHG Vent. Rate : 083 BPM Atrial Rate : 083 BPM P-R Int : 150 ms QRS Dur : 080 ms QT Int : 340 ms P-R-T Axes : 050 -20 093 degrees QTc Int : 399 ms Normal sinus rhythm Septal infarct , age undetermined Abnormal ECG Confirmed by LIDYA BARNES, DEBORA ([id number]), offline editor GOGO WILSON ([id number]) on 03/31/2018 1:17:23 PM Referred By: LANEY Confirmed By:DEBORA BOSE MD
--- NOTE | 2018-04-02 00:38 | DIS ---
DATE OF ADMISSION: 03/29/2018 DATE OF DISCHARGE: 03/30/2018 RESIDENT: Martine Berry MD ADMITTING ATTENDING: Dr. Brown. DISCHARGE ATTENDING: Chapincito Cortez MD PRIMARY DIAGNOSIS: Chronic obstructive pulmonary disease exacerbation. SECONDARY DIAGNOSES: Hypokalemia, resolved; elevated D-dimer; hypertension; and gastroesophageal reflux disease. CONSULTS: None. PROCEDURES: None. DISCHARGE MEDICATIONS: 1. Folic acid 1 mg p.o. daily. 2. Gabapentin 100 mg p.o. t.i.d. 3. Fluoxetine 20 mg p.o. in the morning. 4. Omeprazole 40 mg p.o. daily. 5. Ziprasidone 80 mg p.o. b.i.d. 6. Tylenol 500 mg p.o. every 8 hours as needed. 7. Lipitor 10 mg p.o. at bedtime. 8. Doxycycline 100 mg p.o. twice a day. 9. Prednisone 40 mg p.o. daily. 10. Norvasc 2.5 mg p.o. in the morning. 11. Synthroid 137 mcg p.o. daily. DISCONTINUED MEDICATIONS: None. HISTORY OF PRESENT ILLNESS/HOSPITAL COURSE: This is a 68-year-old female who presented to the ED with a chief complaint of shortness of breath. The patient reported at that time she began smoking again after being troubled last week and had become increasingly short of breath and increased her nebulizer use. The patient reports taking her other medications as prescribed. She reports a productive cough of white sputum and endorsed feeling feverish. The patient denied any other symptoms such as chest pain, palpitations, nausea, vomiting, diarrhea, syncope, or decreased p.o. intake. In the ED, the patient was given DuoNeb, albuterol, potassium, Decadron, and Levaquin. On her arrival, the patient's O2 saturation dropped to 82% and she was placed on 2 L nasal cannula. The patient also had elevated blood pressures up to 180/89 on arrival. The patient had a potassium of 2.6 on arrival and it was replaced as needed. The patient was admitted for COPD exacerbation and was given prednisone, azithromycin, DuoNeb, albuterol, and fluids. The patient also had an elevated D-dimer at 0.53 and CTA was negative for pulmonary embolism. The patient was started on Norvasc for her high blood pressure as she had been on this previously as seen in the clinic records. On the day of discharge, the patient stated that she felt much better and was ready to go home. The patient no longer required nasal cannula. She denied shortness of breath and noted much improvement in her symptoms. DISPOSITION: Stable. DISCHARGE INSTRUCTIONS: 1. Location: Home. 2. Diet: Regular. 3. Activity: Ad-jyoti. 4. Followup: Follow up with PCP within 1 week. Job ID: [id number]
== END 2018-03-30 10:17 | disposition home or self-care (01) ==
LOC: ERS 20:15 → 2SW 23:26
PROVIDERS: ADMIT Student in an Organized Health Care Education/Training Program; ATTEND Student in an Organized Health Care Education/Training Program
DX: J44.1 Chronic obstructive pulmonary disease with (acute) exacerbation (principal); J96.01 Acute respiratory failure with hypoxia; E87.6 Hypokalemia; R79.89 Other specified abnormal findings of blood chemistry; F17.210 Nicotine dependence, cigarettes, uncomplicated; K21.9 Gastro-esophageal reflux disease without esophagitis; I10 Essential (primary) hypertension; K76.0 Fatty (change of) liver, not elsewhere classified; Z79.899 Other long term (current) drug therapy; Z88.8 Allergy status to other drugs, medicaments and biological substances; Z66 Do not resuscitate; F25.9 Schizoaffective disorder, unspecified; F31.9 Bipolar disorder, unspecified
CPT/HCPCS: 71045; 71275; 80048; 80053 ×2; 82550; 83605; 83690; 83880; 84100; 84145; 84484; 85025 ×2; 85379; 87040; 87804 ×2; 93005; 94640; 94760; 96361; 96365; 96366; 96372; 96375; 99285; G0378 ×2; 36415; 81003; 81015; J1100; J1650; J1956; J7506; J7611; J7620; Q9967

== ENCOUNTER 2018-04-22 22:47 | Observation (INO) | payer MEDICARE, OTHER ==
[2018-04-22 23:16] LABS: #Basophils 0.1 thou/uL (0.0-0.2); #Eosinphils 0.2 thou/uL (0.0-0.7); #Lymphocytes 2.8 thou/uL (1.20-3.40); #Monocytes 0.7 thou/uL (0.11-0.59); #Neutrophils 6.8 thou/uL (1.40-6.50); %Basophils 0.8 % (0.0-1.0); %Eosinophils 1.5 % (0.0-10.0); %Lymphocytes 26.2 % (21.0-51.0); %Monocytes 6.9 % (0.0-10.0); %Neutrophils 64.6 % (42.0-75.0); Hemoglobin 11.5 g/dL (12.0-16.0); Mean Corpuscular HGB CONC 33.8 g/dL (32.0-36.0); Mean Corpuscular Hemoglobin 31.1 pg (27.0-31.0); Mean Platelet Volume 8.4 fL (7.4-10.4); Platelet Count 272 thou/uL (130-400); RBC Distribution Width 14.1 % (11.5-14.5); White Blood Cell (WBC) Count 10.6 thou/uL (4.8-10.8)
[2018-04-22] MEDS ORDERED: Dexamethasone 10 MG/ML VIAL ONE (23:26)
[2018-04-22] MEDS ORDERED: cefTRIAXone\\ROCEPHIN 1 GM VIAL ONE (23:26)
[2018-04-22] MEDS ORDERED: Magnesium 2 GM/50 ML BAG (IN WATER) ONE (23:26)
--- NOTE | 2018-04-22 23:40 | RAD ---
FRONTAL VIEW CHEST: INDICATIONS: Cough. Sepsis. COMPARISON: 03/29/2018 FINDINGS: There is interstitial prominence of the lungs bilaterally. There is no lobar consolidation, effusion , or pneumothorax. The cardiac silhouette is within normal limits in size for the portable technique . IMPRESSION: Interstitial opacities of the lungs bilaterally. This could be on the basis of edema versus intersti tial lung disease. Correlate clinically and, as necessary, imaging followup may be obtained. POS: ROBERTH
[2018-04-22 23:51] LABS: Potassium 3.7 mmol/L (3.5-5.1)
[2018-04-22 23:52] LABS: T4 4.8 ug/dL (4.87-11.72); Thyroid Stimulating Hormone 11.4572 uIU/mL (0.35-4.94)
[2018-04-22 23:53] LABS: Protein, Total 7.1 g/dL (6.0-8.3)
[2018-04-22 23:58] LABS: AST (SGOT) 27 U/L (5-34)
[2018-04-22 23:59] LABS: ALT (SGPT) 17 U/L (8-55); Albumin 3.3 g/dL (3.4-4.8); Alkaline Phosphatase 229 U/L (40-150); Anion Gap 14 mmol/L (10-20); BUN (Urea Nitrogen) 16 mg/dL (9.8-20.1); Bilirubin, Total 0.2 mg/dL (0.2-1.2); Calc. Creatinine Clearance 0 mL/min (70-130); Calcium 8.4 mg/dL (7.8-10.44); Carbon Dioxide 21 mmol/L (23-31); Chloride 103 mmol/L (98-107); Estimated GFR-MDRD 57; Globulin 3.8 g/dL (2.4-3.5); Glucose 142 mg/dL (80-115); Sodium 134 mmol/L (136-145)
--- NOTE | 2018-04-23 01:49 | PDOC.FPRHP ---
- History of Present Illness Chief Complaint: SOB History of Present Illness: This is a 68 yo F here w/ a CC of SOB. Patient states she has been progressively SOB since her last hospitalization for a COPD exacerbation. Patient has a PMH of COPD, HTN, and HLD. Patient states that over the last few weeks she has felt SOB, fever/chills, and had a productive cough. Patient states she has been coughing up yellow phlegm for the past 3 days. Patient also endorses feeling fatigued. Patient states she has not been compliant w/ medications including her inhalers and thyroid medications. She states that she never followed up with her PCP after being discharged from her previous hospitalization. Patient denies headache, chest pain, palpitations, abdominal pain, LE swelling. ED Course: 1L NS, 2g IV Mg, 1 g ceftriaxone, 10mg dexamethasone IVP, 3mL duoneb, - Allergies/Adverse Reactions Allergies Allergy/AdvReac Type Severity Reaction Status Date / Time alprazolam [From Xanax] Allergy Verified 03/29/18 23:51 divalproex sodium Allergy Verified 06/06/17 17:21 [From Depakote] ranitidine Allergy Verified 06/06/17 17:21 sertraline HCl [From Zoloft] Allergy Verified 03/29/18 23:51 varenicline tartrate Allergy Verified 03/29/18 23:51 [From Chantix] - Home Medications Medication Instructions Recorded Confirmed Type Folic Acid 1 mg PO DAILY 03/20/15 03/30/18 History FLUoxetine HCl [Prozac] 20 mg PO QAM 08/01/16 03/29/18 History Gabapentin [Neurontin] 100 mg PO TID 08/01/16 03/29/18 History Omeprazole 40 mg PO DAILY 09/24/16 03/29/18 History Ziprasidone HCl 80 mg PO BID 05/30/17 03/29/18 History Acetaminophen [Pain Relief] 500 mg PO Q8HR PRN 03/29/18 03/29/18 History Atorvastatin Calcium [Lipitor] 10 mg PO HS 03/29/18 03/30/18 History Amlodipine [Norvasc] 2.5 mg PO QAM #30 tab 03/30/18 Rx Doxycycline [Vibramycin] 100 mg PO BID #10 cap 03/30/18 Rx Levothyroxine Sodium [Synthroid] 137 mcg PO DAILY 03/30/18 03/29/18 History predniSONE 40 mg PO DAILY #5 tab 03/30/18 Rx - History PMHx: GERD, HTN, COPD, scoliosis, hx of SBO, anxiety, bipolar disorder, depression, schizophrenia PSHx: cholecystectomy, Csection X 2, hx tubal ligation, bowel sx for SBO FHx: noncontributory Social: current tobacco use - states she has smoked all her life; denies alcohol or drug use - Review of Systems General: reports: fever/chills, fatigue. denies: weight/appetite/sleep changes , night sweats Eyes: denies: eye pain, vision changes ENT: denies: nasal congestion, rhinorrhea Respiratory: reports: cough, shortness of breath, exercise intolerance. denies : congestion Cardiovascular: reports: edema. denies: chest pain, palpitation Gastrointestinal: denies: nausea, vomiting, diarrhea, constipation, abdominal pain Genitourinary: denies: dysuria Skin: denies: rashes Neurological: reports: weakness Psychological: reports: anxiety, depression - Vital signs BP: 124/88 HR: 80 RR: 18 Tmax: 98.4 Pox: 98 % on RA Wt: 58.6kg - Physical Exam Constitutional: awake, alert and oriented -Constitutional: elderly appearing female HEENT: normocephalic and atraumatic, PERRLA, EOMI, grossly normal vision, grossly normal hearing, MMM Neck: supple, FROM, no JVD Chest: no lesions -Chest: TTP on anterior L chest Heart: RRR, normal S1/S2, no murmurs/rubs/gallops, pulses present -Heart: trace edema in BLE -Lungs: rales/wheezes heard diffusely Abdomen: soft, non-tender, bowel sounds present, no masses/distention, no hernias Musculoskeletal: ROM grossly normal Neurological: no focal deficit Skin: no rash/lesions Psychiatric: normal mood and affect FMR H&P: Results - Labs Result Diagrams: 04/22/18 22:51 04/22/18 22:51 Lab results: WBC 10.6 thou/uL (4.8-10.8) 04/22/18 22:51 Hgb 11.5 g/dL (12.0-16.0) L 04/22/18 22:51 Hct 34.1 % (36.0-47.0) L 04/22/18 22:51 MCV 92.0 fL (78.0-98.0) 04/22/18 22:51 Plt Count 272 thou/uL (130-400) 04/22/18 22:51 Neutrophils % 64.6 % (42.0-75.0) 04/22/18 22:51 Sodium 134 mmol/L (136-145) L 04/22/18 22:51 Potassium 3.7 mmol/L (3.5-5.1) 04/22/18 22:51 Chloride 103 mmol/L (98-107) 04/22/18 22:51 Carbon Dioxide 21 mmol/L (23-31) L 04/22/18 22:51 BUN 16 mg/dL (9.8-20.1) 04/22/18 22:51 Creatinine 0.96 mg/dL (0.6-1.1) 04/22/18 22:51 Glucose 142 mg/dL (80-115) H 04/22/18 22:51 Lactic Acid 1.7 mmol/L (0.5-2.2) 04/22/18 22:51 Calcium 8.4 mg/dL (7.8-10.44) 04/22/18 22:51 Total Bilirubin 0.2 mg/dL (0.2-1.2) 04/22/18 22:51 AST 27 U/L (5-34) 04/22/18 22:51 ALT 17 U/L (8-55) 04/22/18 22:51 Alkaline Phosphatase 229 U/L (40-150) H 04/22/18 22:51 B-Natriuretic Peptide 38.4 pg/mL (0-100) 04/22/18 22:51 Serum Total Protein 7.1 g/dL (6.0-8.3) 04/22/18 22:51 Albumin 3.3 g/dL (3.4-4.8) L 04/22/18 22:51 FMR H&P: A/P - Problem List (1) Acute dyspnea Current Visit: No Status: Acute Code(s): R06.00 - DYSPNEA, UNSPECIFIED (2) COPD (chronic obstructive pulmonary disease) Current Visit: No Status: Acute (3) COPD with acute exacerbation Current Visit: No Status: Acute Code(s): J44.1 - CHRONIC OBSTRUCTIVE PULMONARY DISEASE W (ACUTE) EXACERBATION (4) Elevated d-dimer Current Visit: No Status: Acute Code(s): R79.89 - OTHER SPECIFIED ABNORMAL FINDINGS OF BLOOD CHEMISTRY (5) Hypertension Current Visit: No Status: Acute Code(s): I10 - ESSENTIAL (PRIMARY) HYPERTENSION (6) Bipolar disorder Current Visit: No Status: Chronic Code(s): F31.9 - BIPOLAR DISORDER, UNSPECIFIED (7) Gastroesophageal reflux disease Current Visit: No Status: Chronic Code(s): K21.9 - GASTRO-ESOPHAGEAL REFLUX DISEASE WITHOUT ESOPHAGITIS (8) Hypothyroidism Current Visit: No Status: Chronic Code(s): E03.9 - HYPOTHYROIDISM, UNSPECIFIED - Plan COPD exacerbation - will restart home inhalers - DuoNeb q4hr JESSICA; albuterol q2hr PRN - prednisone oral 40mg x 5 days - Will start levaquin 750mg since recently discharged on doxy <1mo ago for COPD exacerbation - Keep O2 sats between 88-92%; supp O2 as needed Pneumobilia - appears chronic, can consider GI consultation - no concern for cholangitis at this time - pt has leukocytosis but afebrile, no RUQ pain Elevated D Dimer - 0.83; elevated on previous admission - CTA pending HTN - aware, will restart home meds Hypothyroidism - pt non compliant with medications - TSH: 11.46, T4 4.5 - Will restart home meds - may need to increase dose Anxiety/depression - aware, will restart home meds MSK chest pain - trop neg - PRN tylenol/motrin Code: Chem only Dispo: admit to medical, obs vte: th lovenox FMR H&P: Upper Level - Pertinent history 68 yo WF PMH COPD, HTN, and anxiety. Presents with 3wk hx of productive cough, worsening SOB, and MERCHANT. States she recently traveled to the [place] and upon returning, began smoking again. Symptoms worsened after she started smoking. States she has been out of her inhalers for a while and has been out of several of her BP meds and her thyroid medications as well. States she has had some housing issues recently. ER: Labs, EKG, CXR, CTA-chest, NS 1L, Rocephin 1g, Duoneb x1, Mag 2g, decadron 10 mg. - Pertinent findings Vitals: BP initially low 94/62 but at time of exam 124/88 after NS 1L. otherwise WNL. GEN: NAD, A&Ox4, thin CV: RRR, no murmur, TTP midclavicular line at approximately rib 3-5 left side. Pulm: Upper airway sounds through out all lung ziegler, faint wheezing, \ Ext: trace edema. Labs: TSH 11.4, T4 4.8, D-Dimer 0.83, trop <0.010, CXR: bibasilar opacities. CTA chest: no acute findings, pneumobilia (appears chronic) EKG: rate 88, NSR, QTc 520, - Plan Date/Time: 04/23/18 0149 I, Mark Sutton MD, have evaluated this patient and agree with findings/plan as outlined by human resources intern resident. Pertinent changes/additions are listed here. 1. Acute COPD exacerbation: Restart home inhalers. Q6hr duonebs with Q4H PRN. Prednisone 40 mg daily x5 days. Levaquin 750 mg since she was just discharged on doxycycline < 1 month ago for COPD exacerbation. 2. Pneumobilia: appears chronic, will consider GI consultation, no concern for cholangitis at this time. 3. HTN: home meds 4. Hypothyroidism: restart home medications. may need to increase dose since TSH elevated. 5. Anxiety/Depression: home meds 6. Musculoskeletal chest pain: Trop negative, PRN NSAIDs Diet: HH PPx: Lovenox CODE: DNR-DNI (chemical code)- discussed at length with the patient who expressed understanding. Dispo: Obs, medical <[address] Llamas. Addendum - Attending - Attending Attestation Date/Time: 04/23/18 1035 I personally evaluated the patient and discussed the management with Dr. Berry. I agree with the History, Examination, Assessment and Plan documented above with any addition or exceptions noted below. The patient was admitted with shortness of breath and had not been taking her copd meds. The patient is now feeling much better. Lungs are clear. Pt is wanting to go home and states [facility]fn [facility] will deliver her meds to the house. We stressed the importance of taking her meds and following up with the pcp.
[2018-04-23 02:27] LABS: Troponin I Less than 0.010 ng/mL (< 0.028)
[2018-04-23] MEDS ORDERED: Acetaminophen 325 MG TAB PO PRN (02:27)
[2018-04-23] MEDS ORDERED: Acetaminophen 650 MG Suppository PR PRN (02:27)
[2018-04-23] MEDS ORDERED: Ondansetron PF 4 MG/2 ML Vial IVP PRN (02:27)
[2018-04-23] MEDS ORDERED: Ondansetron ODT 4 MG TAB PO PRN (02:27)
[2018-04-23] MEDS ORDERED: Albuterol Sulfate 2.5 mg/3 ml Neb NEB PRN (02:33)
[2018-04-23] MEDS ORDERED: Nicotine 21 MG PATCH TD SCH (03:00)
[2018-04-23 05:30] LABS: Troponin I Less than 0.010 ng/mL (< 0.028)
[2018-04-23] MEDS ORDERED: Levothyroxine Sodium 25 MCG TAB PO SCH (06:00)
[2018-04-23] MEDS ORDERED: Levothyroxine Sodium 112 MCG TAB PO SCH (06:00)
[2018-04-23] MEDS ORDERED: Spiriva 18 MCG CAP (Box of 5 Caps) INH SCH (07:00)
--- NOTE | 2018-04-23 07:44 | CT ---
CTA CHEST WITH CONTRAST WITH 3D VOLUME RENDERING: Comparison: 03-29-18 Clinical history: Sepsis, cough. FINDINGS: No evidence of pulmonary embolus. Mild calcification of the thoracic aorta. There is no evidence of c onsolidation, effusion, or pneumothorax. Subtle interstitial prominence of the lungs bilaterally yury cates a mild degree of interstitial lung disease. There is also degenerative change, regionally. A sm all hiatal hernia is present. There is trace paracardial fluid. IMPRESSION: No acute pulmonary embolus. POS: C
[2018-04-23] MEDS ORDERED: Enoxaparin Sodium 40 MG/0.4 ML SYRINGE SC SCH (09:00)
[2018-04-23] MEDS ORDERED: predniSONE 20 MG TAB PO SCH (09:00)
[2018-04-23] MEDS ORDERED: Gabapentin 100 MG CAP PO SCH (09:00)
[2018-04-23] MEDS ORDERED: Amlodipine 5 MG TAB PO SCH (09:00)
[2018-04-23] MEDS ORDERED: Folic Acid 1 MG TAB PO SCH (09:00)
[2018-04-23] MEDS ORDERED: FLUoxetine HCl 20 MG CAP PO SCH (09:00)
[2018-04-23] MEDS ORDERED: Folic Acid 1 MG TAB ONE (09:29)
[2018-04-23] MEDS ORDERED: Enoxaparin Sodium 40 MG/0.4 ML SYRINGE ONE (09:29)
[2018-04-23] MEDS ORDERED: Ziprasidone 20 MG CAP ONE (09:29)
[2018-04-23] MEDS ORDERED: predniSONE 20 MG TAB ONE (09:29)
[2018-04-23] MEDS ORDERED: Iopamidol 370 76% 100 ML VIAL ONE (11:53)
[2018-04-23] MEDS ORDERED: Atorvastatin Calcium 10 MG TAB PO SCH (21:00)
--- NOTE | 2018-04-24 03:57 | DIS ---
DATE OF ADMISSION: 04/23/2018 DATE OF DISCHARGE: 04/23/2018 ADMITTING ATTENDING: Ilsa Llamas MD. DISCHARGE ATTENDING: Ilsa Llamas MD. CONSULTS: None. PROCEDURES: None. PRIMARY DIAGNOSIS: Chronic obstructive pulmonary disease exacerbation. SECONDARY DIAGNOSES: 1. Pneumobilia. 2. Elevated D-dimer. 3. Hypertension. 4. Hyperthyroid. 5. Anxiety/depression. 6. Musculoskeletal gas pain. DISCHARGE MEDICATIONS: 1. Folic acid 1 mg p.o. daily. 2. Gabapentin 100 mg p.o. t.i.d. 3. Prozac 20 mg p.o. q.a.m. 4. Omeprazole 40 mg p.o. daily. 5. Ziprasidone 80 mg p.o. b.i.d. 6. Acetaminophen 500 mg p.o. q.8 hours p.r.n. 7. Lipitor 10 mg p.o. at bedtime. 8. Doxycycline 100 mg p.o. b.i.d. 9. Prednisone 40 mg p.o. daily for 4 days. 10. Amlodipine 2.5 mg p.o. q.a.m. 11. Synthroid 137 mcg p.o. daily. 12. Spiriva 18 mcg inhaled daily. DISCONTINUED MEDICATIONS: None. HISTORY OF PRESENT ILLNESS/HOSPITAL COURSE: The patient presented to the emergency department with chief complaint of shortness of breath and wheezing. She reports that she has been in a different city for the past 2 weeks and unable to take her medications. She currently complains of shortness of breath, fever, chills, and productive cough. The patient states she has been coughing up yellow phlegm for 3 days. Overall, she has been noncompliant with her inhalers and thyroid medications and has not followed up with her PCP after previous hospitalization as instructed. In the emergency department, she received 1 liter of NS, 2 g of IV magnesium, 1 g ceftriaxone, 2 mg of dexamethasone IV push, and 3 mL of nebulized albuterol and ipratropium bromide. The patient was scheduled to have q.4 DuoNeb nebulizer treatments, received these, continued to saturate well without nasal cannula on room air. Vital signs remained stable. The patient reported improved shortness of breath. CBC, CMP, and other labs including procalcitonin came back normal and did not indicate an infectious cause. The patient was deemed stable for discharge. DISCHARGE INSTRUCTIONS: LOCATION: Home. DIET: Diabetic. ACTIVITY: As tolerated. FOLLOWUP: Follow up with PCP, Dr. Pedrito Esposito in next 3 to 4 days. Job ID: [id number]
[2018-04-24] MEDS ORDERED: Spiriva 18 MCG CAP (Box of 5 Caps) INH SCH (07:00)
[2018-04-24] MEDS ORDERED: Ipratropium Bromide 2.5 ml Neb NEB SCH (07:00)
--- NOTE | 2018-04-28 19:12 | EKG ---
Test Reason : Blood Pressure : / mmHG Vent. Rate : 088 BPM Atrial Rate : 088 BPM P-R Int : 146 ms QRS Dur : 080 ms QT Int : 430 ms P-R-T Axes : 054 -16 050 degrees QTc Int : 520 ms Sinus rhythm with Premature supraventricular complexes ST abnormality, possible digitalis effect Prolonged QT Abnormal ECG Confirmed by GORDON MAURO ([id number]), assistant film editor LORI CARRILLO ([id number]) on 04/28/2018 7:12:48 PM Referred By: Confirmed By:GORDON MAURO
== END 2018-04-23 11:46 | disposition home or self-care (01) ==
LOC: ERS 22:47 → INTOOBSV 04-23 01:23 → ERHOLD 04-23 01:23
PROVIDERS: ADMIT Family Medicine; ATTEND Family Medicine
DX: J44.1 Chronic obstructive pulmonary disease with (acute) exacerbation (principal); K83.8 Other specified diseases of biliary tract; R79.89 Other specified abnormal findings of blood chemistry; I10 Essential (primary) hypertension; E78.5 Hyperlipidemia, unspecified; K21.9 Gastro-esophageal reflux disease without esophagitis; F41.9 Anxiety disorder, unspecified; F31.9 Bipolar disorder, unspecified; F20.9 Schizophrenia, unspecified; E03.9 Hypothyroidism, unspecified; R07.89 Other chest pain; F17.210 Nicotine dependence, cigarettes, uncomplicated; Z79.899 Other long term (current) drug therapy; Z88.8 Allergy status to other drugs, medicaments and biological substances; Z66 Do not resuscitate; Z91.14 Patient's other noncompliance with medication regimen
CPT/HCPCS: 71045; 71275; 83605; 83880; 84145; 84436; 84484 ×3; 85379; 87040; 93005; 94640 ×2; 96361; 96365; 96375; 99285; G0378; 36415; 80053; 84443; 85025; J0696; J1100; J1650; J3475; J7620; Q9967

== ENCOUNTER 2018-05-30 07:36 | Emergency (ER) | payer MEDICARE, OTHER ==
[2018-05-30 08:29] LABS: #Basophils 0.1 thou/uL (0.0-0.2); #Eosinphils 0.2 thou/uL (0.0-0.7); #Lymphocytes 2.3 thou/uL (1.20-3.40); #Monocytes 0.4 thou/uL (0.11-0.59); #Neutrophils 5.5 thou/uL (1.40-6.50); %Basophils 0.7 % (0.0-1.0); %Eosinophils 1.9 % (0.0-10.0); %Lymphocytes 27.4 % (21.0-51.0); Mean Corpuscular HGB CONC 32.5 g/dL (32.0-36.0); Mean Corpuscular Hemoglobin 31.5 pg (27.0-31.0); Platelet Count 190 thou/uL (130-400); RBC Distribution Width 15.2 % (11.5-14.5); Red Blood Cell (RBC) Count 3.79 mill/uL (4.20-5.40); White Blood Cell (WBC) Count 8.4 thou/uL (4.8-10.8)
[2018-05-30] MEDS ORDERED: predniSONE 20 MG TAB ONE (08:30)
--- NOTE | 2018-05-30 08:34 | RAD ---
TWO VIEWS CHEST: Comparison: 04-22-18 History: Dyspnea. FINDINGS: Slight elongation of the aorta. Normal cardiac silhouette. The pulmonary vessels and hilum are normal . Costophrenic angles are clear. Opacity in the left lung base. Lungs are hyperinflated. No pneumotho rax or osseous abnormality. IMPRESSION: Left lower lobe infiltrate. Continued surveillance until resolution. POS: [facility]
[2018-05-30] MEDS ORDERED: Albuterol Sulfate 2.5 mg/3 ml Neb ONE (08:38)
[2018-05-30 08:51] LABS: ALT (SGPT) 26 U/L (8-55); AST (SGOT) 15 U/L (5-34); Albumin 3.9 g/dL (3.4-4.8); Alkaline Phosphatase 195 U/L (40-150); Anion Gap 14 mmol/L (10-20); BUN (Urea Nitrogen) 11 mg/dL (9.8-20.1); Bilirubin, Total 0.5 mg/dL (0.2-1.2); Calc. Creatinine Clearance 0 mL/min (70-130); Calcium 9.2 mg/dL (7.8-10.44); Carbon Dioxide 22 mmol/L (23-31); Chloride 106 mmol/L (98-107); Estimated GFR-MDRD 72; Globulin 2.8 g/dL (2.4-3.5); Glucose 115 mg/dL (80-115); Potassium 4.1 mmol/L (3.5-5.1); Protein, Total 6.7 g/dL (6.0-8.3); Sodium 138 mmol/L (136-145)
== END 2018-05-30 09:44 | disposition home or self-care (01) ==
LOC: ERS 07:36
DX: J44.0 Chronic obstructive pulmonary disease with (acute) lower respiratory infection (principal); J18.1 Lobar pneumonia, unspecified organism; J44.1 Chronic obstructive pulmonary disease with (acute) exacerbation; F17.210 Nicotine dependence, cigarettes, uncomplicated; F41.9 Anxiety disorder, unspecified; F31.9 Bipolar disorder, unspecified; F20.9 Schizophrenia, unspecified; Z79.899 Other long term (current) drug therapy
CPT/HCPCS: 36415; 71046; 80053; 84484; 85025; 93005; 94640; J7611; J7620

== ENCOUNTER 2018-06-07 22:03 | Emergency (ER) | payer MEDICARE, OTHER ==
[2018-06-07] MEDS ORDERED: predniSONE 20 MG TAB ONE (23:12)
--- NOTE | 2018-06-07 23:15 | RAD ---
CHEST ONE VIEW: 06/07/18 INDICATION: Emergency Room examination, chest pain. COMPARISON: Prior exam dated 05/30. FINDINGS: Chronic lung changes appear similar. Heart size is normal. No acute osseous abnormality is evident. N o pleural effusion, pneumothorax evident. IMPRESSION: No acute cardiopulmonary abnormality is demonstrated. Suspected left lower lobe infiltrate seen on th e comparison examination is no longer identified. POS: [facility]
[2018-06-07] MEDS ORDERED: Albuterol Sulfate 2.5 mg/3 ml Neb ONE (23:52)
[2018-06-08 00:08] LABS: #Basophils 0.1 thou/uL (0.0-0.2); #Eosinphils 0.1 thou/uL (0.0-0.7); #Lymphocytes 2.8 thou/uL (1.20-3.40); #Monocytes 0.7 thou/uL (0.11-0.59); #Neutrophils 6.5 thou/uL (1.40-6.50); %Basophils 0.8 % (0.0-1.0); %Eosinophils 1.4 % (0.0-10.0); %Lymphocytes 27.4 % (21.0-51.0); %Neutrophils 63.4 % (42.0-75.0); Hemoglobin 13.2 g/dL (12.0-16.0); Mean Corpuscular HGB CONC 32.1 g/dL (32.0-36.0); Mean Corpuscular Hemoglobin 31.4 pg (27.0-31.0); Mean Corpuscular Volume 97.8 fL (78.0-98.0); Mean Platelet Volume 6.7 fL (7.4-10.4); Platelet Count 352 thou/uL (130-400); RBC Distribution Width 14.8 % (11.5-14.5); Red Blood Cell (RBC) Count 4.21 mill/uL (4.20-5.40); White Blood Cell (WBC) Count 10.2 thou/uL (4.8-10.8)
[2018-06-08 00:30] LABS: ALT (SGPT) 21 U/L (8-55); AST (SGOT) 14 U/L (5-34); Alkaline Phosphatase 185 U/L (40-150); Anion Gap 16 mmol/L (10-20); BUN (Urea Nitrogen) 8 mg/dL (9.8-20.1); Bilirubin, Total 0.3 mg/dL (0.2-1.2); Calc. Creatinine Clearance 0 mL/min (70-130); Calcium 9.6 mg/dL (7.8-10.44); Carbon Dioxide 23 mmol/L (23-31); Chloride 101 mmol/L (98-107); Estimated GFR-MDRD 64; Globulin 3.2 g/dL (2.4-3.5); Glucose 162 mg/dL (80-115); Potassium 4.1 mmol/L (3.5-5.1); Protein, Total 7.2 g/dL (6.0-8.3); Sodium 136 mmol/L (136-145)
== END 2018-06-08 01:04 | disposition home or self-care (01) ==
LOC: ERS 22:03
DX: J44.1 Chronic obstructive pulmonary disease with (acute) exacerbation (principal); M41.9 Scoliosis, unspecified; F41.9 Anxiety disorder, unspecified; F31.9 Bipolar disorder, unspecified; F20.9 Schizophrenia, unspecified; I10 Essential (primary) hypertension; K21.9 Gastro-esophageal reflux disease without esophagitis; F17.210 Nicotine dependence, cigarettes, uncomplicated
CPT/HCPCS: 36415; 71045; 80053; 84484; 85025; 93005; 94640; J7611; J7620

== ENCOUNTER 2018-07-13 18:05 | Inpatient (IN) | payer MEDICARE, OTHER ==
[2018-07-13] MEDS ORDERED: methylPREDNISolone Sod Succ/PF 125 MG/2 ML VIAL ONE (18:16)
[2018-07-13] MEDS ORDERED: Magnesium 2 GM/50 ML BAG (IN WATER) ONE (18:19)
[2018-07-13 18:26] LABS: Actual Bicarbonate (HCO3a) 24.4 mEq/L (22-28); Analyzer IN Cardio ER; Base Excess (BEa) -0.8 mEq/L (-2.0 to +3.0); CO2 Tension 42.3 mmHg (35.0-45.0); Calcium, Ionized 1.15 mmol/L (1.12-1.30); Carboxyhemoglobin (COHb) 8.5 gm% (0.0-3.0); Hemoglobin (Hb) 13.7 g/dL (12.0-16.0); O2 Tension (PaO2) 94.5 mmHg (> 70.0); Potassium - ABG Lab 3.47 mmol/L (3.70-5.30); pH, Arterial 7.38 (7.35-7.45)
[2018-07-13 18:33] LABS: ALV-art Gradient 80.785 (0-20); Puncture Site RRA
[2018-07-13 18:57] LABS: #Basophils 0.1 thou/uL (0.0-0.2); #Monocytes 0.2 thou/uL (0.11-0.59); #Neutrophils 10.7 thou/uL (1.40-6.50); %Basophils 0.7 % (0.0-1.0); %Eosinophils 0.4 % (0.0-10.0); %Lymphocytes 7.9 % (21.0-51.0); %Monocytes 1.6 % (0.0-10.0); %Neutrophils 89.5 % (42.0-75.0); Hemoglobin 13.5 g/dL (12.0-16.0); Mean Corpuscular HGB CONC 32.6 g/dL (32.0-36.0); Mean Corpuscular Hemoglobin 31.1 pg (27.0-31.0); Mean Corpuscular Volume 95.4 fL (78.0-98.0); Mean Platelet Volume 7.5 fL (7.4-10.4); Platelet Count 282 thou/uL (130-400); RBC Distribution Width 14.5 % (11.5-14.5); Red Blood Cell (RBC) Count 4.35 mill/uL (4.20-5.40)
--- NOTE | 2018-07-13 19:19 | RAD ---
FPortable chest: HISTORY: Shortness of breath COMPARISON: 06/07/2018 FINDINGS:Lung ziegler are clear. Heart and mediastinum appear unremarkable. Vascularity is normal. Visualized osseous structures unremarkable. IMPRESSION:No acute finding
[2018-07-13 19:31] LABS: ALT (SGPT) 37 U/L (8-55); AST (SGOT) 54 U/L (5-34); Albumin 3.9 g/dL (3.4-4.8); Alkaline Phosphatase 324 U/L (40-150); Anion Gap 16 mmol/L (10-20); BUN (Urea Nitrogen) 9 mg/dL (9.8-20.1); Bilirubin, Total 0.7 mg/dL (0.2-1.2); Calc. Creatinine Clearance 0 mL/min (70-130); Calcium 9.4 mg/dL (7.8-10.44); Carbon Dioxide 25 mmol/L (23-31); Chloride 99 mmol/L (98-107); Estimated GFR-MDRD 74; Globulin 3.7 g/dL (2.4-3.5); Glucose 116 mg/dL (80-115); Potassium 3.3 mmol/L (3.5-5.1); Protein, Total 7.6 g/dL (6.0-8.3); Sodium 137 mmol/L (136-145)
[2018-07-13 19:43] LABS: Bilirubin Negative (Negative); Blood, Urine Large (Negative); Clarity CLOUDY (Clear); Glucose, Urine (Dipstick) Negative (Negative); Leukocyte Small (Negative); Nitrite Positive (Negative); Protein, Urine (Dipstick) 100 mg/dL (Neg-Trace); Specific Gravity, Urine 1.009 (1.002-1.036); pH, Urine 6.5 (5.0-9.0)
[2018-07-13] MEDS ORDERED: Ibuprofen 800 MG TAB ONE (19:44)
[2018-07-13 19:45] LABS: Bacteria/HPF 4+ HPF (None Seen); Hyaline Casts/LPF 7-10 HYALINE CAST LPF (0-3 Hyaline); Pathc Cast-AUWi Flag 0.95 (0-2.49); RBC/HPF 21-50 HPF (0-3); Squamous Epithelial 0-3 HPF (0-3); WBC/HPF 21-50 HPF (0-3); Yeast-AUWi Flag 16.1 (0-25.0)
[2018-07-13] MEDS ORDERED: cefTRIAXone\\ROCEPHIN 1 GM VIAL ONE (19:45)
--- NOTE | 2018-07-13 20:40 | PDOC.FPRHP ---
- History of Present Illness Chief Complaint: SOB History of Present Illness: Ms Baldwin is a 68yo female with pmh of COPD, HFpEF, HTN, tobacco abuse, Schizoaffective presents for SOB that started today. She received her paycheck and bought 2 packs of cigarettes, after she smoked them she had SOB. Has been trying to quit and was down to 5-6 cigarettes per day prior to this. Not on home oxygen. Takes Spiriva and Symbicort at home as well as Proair/Duoneb PRN. Usually after she smokes she gives herself a duoneb and SOB resolves, this time she gave herself several with no improvement in symptoms. Denies change in sputum production, fever, chills. Does endorse dysuria that initially started 3 weeks ago, she was tx'ed for UTI at the [facility]. She finished antibiotics early this week, dysuria returned afterwards. She has also had urinary retention for the past 3 days. Reports subjective fever 30min prior to arrival to ED, rectal temp of 106 in ED. PCP: [facility] (Dr Esposito) ED Course: NS 500ml, Mg 2g, Duoneb 3ml, Ceftriaxone 1g, NS 30mg/kg, Solumedrol 125mg, Motrin 800mg Temp 106 rectally. Cooling blanket applied CXR- no acute process WBC 12, K 3.3, AST 54 UA c/w infection - Allergies/Adverse Reactions Allergies Allergy/AdvReac Type Severity Reaction Status Date / Time alprazolam [From Xanax] Allergy Verified 03/29/18 23:51 buprenorphine Allergy Verified 07/14/18 03:21 divalproex sodium Allergy Verified 06/06/17 17:21 [From Depakote] ranitidine Allergy Verified 06/06/17 17:21 sertraline HCl [From Zoloft] Allergy Verified 03/29/18 23:51 trazodone Allergy Verified 07/14/18 03:21 varenicline tartrate Allergy Verified 03/29/18 23:51 [From Chantix] - Home Medications Medication Instructions Recorded Confirmed Type Folic Acid 1 mg PO DAILY 03/20/15 07/13/18 History FLUoxetine HCl [Prozac] 20 mg PO QAM 08/01/16 07/13/18 History Gabapentin [Neurontin] 100 mg PO TID 08/01/16 07/13/18 History Omeprazole 40 mg PO DAILY 09/24/16 07/13/18 History Ziprasidone HCl 80 mg PO BID 05/30/17 07/13/18 History Atorvastatin Calcium [Lipitor] 10 mg PO HS 03/29/18 07/13/18 History Levothyroxine Sodium [Synthroid] 137 mcg PO DAILY 03/30/18 07/13/18 History Mometasone/Formoterol [Dulera 200 2 inh INH BID 07/14/18 07/14/18 History mcg/5 mcg Inhaler] PARoxetine HCl [Paroxetine HCl] 10 mg PO QAM 07/14/18 07/14/18 History Polyethylene Glycol 3350 [Miralax] 17 gm PO DAILY PRN 07/14/18 07/14/18 History Tiotropium Loman [Spiriva] 2 inh INH QAM 07/14/18 07/14/18 History metFORMIN HCl [Metformin ER 500 mg PO QAM 07/14/18 07/14/18 History Gastric] - History PMHx: GERD, HTN, COPD, scoliosis, hx of SBO, anxiety, depression, schizoaffective, OA, hypothyroidism, HFpEF, tobacco abuse PSHx: cholecystectomy, Csection x2, hx tubal ligation, bowel resection for SBO 2008, Bowel resection 2017, L knee replacemnet FHx: Noncontributory Social: 80+ pack year smoking hx. Currently down to 5-6 cig per day. Denies alcohol or drug use - Review of Systems General: reports: fever/chills. denies: weight/appetite/sleep changes Eyes: denies: eye pain, vision changes ENT: denies: nasal congestion, rhinorrhea Respiratory: reports: cough, shortness of breath. denies: congestion Cardiovascular: denies: chest pain, palpitation, edema Gastrointestinal: denies: nausea, vomiting, diarrhea, abdominal pain Genitourinary: reports: dysuria, other (urinary retention) Skin: denies: rashes, lesions Musculoskeletal: denies: pain, swelling Neurological: denies: numbness, weakness - Vital signs BP: 136/94 HR: 118 RR: 36 Tmax: 102.8 Pox: 93% on 3L Wt: 53kg - Physical Exam Constitutional: NAD, awake, alert and oriented, well developed, other (talking in full sentences) HEENT: normocephalic and atraumatic, PERRLA, conjunctiva clear, grossly normal hearing, MMM, oropharynx clear, other (poor dentition) Neck: supple, trachea midline, no LAD Heart: RRR, no murmurs/rubs/gallops, pulses present, no edema Lungs: CTAB, no respiratory distress, good air movement, no wheezing Abdomen: soft, non-tender, bowel sounds present, other (no CVA tenderness) Musculoskeletal: normal structure, normal tone, ROM grossly normal Skin: no rash/lesions, good turgor, capillary refill <2 seconds Psychiatric: normal mood and affect, good judgment and insight, intact recent and remote memory FMR H&P: Results - Labs Result Diagrams: 07/14/18 04:55 07/14/18 04:55 Lab results: WBC 12.0 thou/uL (4.8-10.8) H 07/13/18 18:38 Hgb 13.5 g/dL (12.0-16.0) 07/13/18 18:38 Hct 41.5 % (36.0-47.0) 07/13/18 18:38 MCV 95.4 fL (78.0-98.0) 07/13/18 18:38 Plt Count 282 thou/uL (130-400) 07/13/18 18:38 Neutrophils % 89.5 % (42.0-75.0) H 07/13/18 18:38 ABG pH 7.38 (7.35-7.45) 07/13/18 18:21 ABG pCO2 42.3 mmHg (35.0-45.0) 07/13/18 18:21 ABG pO2 94.5 mmHg (> 70.0) H 07/13/18 18:21 Sodium 137 mmol/L (136-145) 07/13/18 18:38 Potassium 3.3 mmol/L (3.5-5.1) L 07/13/18 18:38 Chloride 99 mmol/L (98-107) 07/13/18 18:38 Carbon Dioxide 25 mmol/L (23-31) 07/13/18 18:38 BUN 9 mg/dL (9.8-20.1) L 07/13/18 18:38 Creatinine 0.77 mg/dL (0.6-1.1) 07/13/18 18:38 Glucose 116 mg/dL (80-115) H 07/13/18 18:38 Lactic Acid 4.1 mmol/L (0.5-2.2) H* 07/13/18 18:38 Calcium 9.4 mg/dL (7.8-10.44) 07/13/18 18:38 Total Bilirubin 0.7 mg/dL (0.2-1.2) 07/13/18 18:38 AST 54 U/L (5-34) H 07/13/18 18:38 ALT 37 U/L (8-55) 07/13/18 18:38 Alkaline Phosphatase 324 U/L (40-150) H 07/13/18 18:38 B-Natriuretic Peptide 65.5 pg/mL (0-100) 07/13/18 18:38 Serum Total Protein 7.6 g/dL (6.0-8.3) 07/13/18 18:38 Albumin 3.9 g/dL (3.4-4.8) 07/13/18 18:38 Urine Ketones Negative mg/dL (Negative) 07/13/18 19:31 Urine Blood Large (Negative) H 07/13/18 19:31 Urine Nitrite Positive (Negative) H 07/13/18 19:31 Ur Leukocyte Esterase Small (Negative) H 07/13/18 19:31 Urine RBC 21-50 HPF (0-3) H 07/13/18 19:31 Urine WBC 21-50 HPF (0-3) H 07/13/18 19:31 Ur Squamous Epith Cells 0-3 HPF (0-3) 07/13/18 19:31 Urine Bacteria 4+ HPF (None Seen) H 07/13/18 19:31 - Radiology Interpretation Chest x-ray Status: image reviewed by me, report reviewed by me Additional comment: No acute findings CT scan - abdomen Status: report reviewed by me Additional comment: Mild prominence of left renal pelvis with perinephric haziness suggesting inflammation. Consider UTI. Nonspecific small bowel distention FMR H&P: A/P - Problem List (1) COPD with acute exacerbation Current Visit: No Status: Acute Code(s): J44.1 - CHRONIC OBSTRUCTIVE PULMONARY DISEASE W (ACUTE) EXACERBATION (2) Pyelonephritis Current Visit: Yes Status: Acute Code(s): N12 - TUBULO-INTERSTITIAL NEPHRITIS, NOT SPCF ACUTE OR CHRONIC (3) Transaminitis Current Visit: Yes Status: Chronic Code(s): R74.0 - NONSPEC ELEV OF LEVELS OF TRANSAMNS & LACTIC ACID DEHYDRGNSE (4) (HFpEF) heart failure with preserved ejection fraction Current Visit: Yes Status: Chronic Code(s): I50.30 - UNSPECIFIED DIASTOLIC ( CONGESTIVE) HEART FAILURE (5) Anemia Current Visit: Yes Status: Chronic Code(s): D64.9 - ANEMIA, UNSPECIFIED (6) Osteoarthritis Current Visit: Yes Status: Chronic Code(s): M19.90 - UNSPECIFIED OSTEOARTHRITIS, UNSPECIFIED SITE (7) Tobacco abuse Current Visit: Yes Status: Chronic Code(s): Z72.0 - TOBACCO USE (8) Hypokalemia Current Visit: No Status: Acute Code(s): E87.6 - HYPOKALEMIA (9) Gastroesophageal reflux disease Current Visit: No Status: Chronic Code(s): K21.9 - GASTRO-ESOPHAGEAL REFLUX DISEASE WITHOUT ESOPHAGITIS (10) Hepatic steatosis Current Visit: No Status: Chronic Code(s): K76.0 - FATTY (CHANGE OF) LIVER, NOT ELSEWHERE CLASSIFIED (11) Hypothyroidism Current Visit: No Status: Chronic Code(s): E03.9 - HYPOTHYROIDISM, UNSPECIFIED (12) Schizoaffective disorder Current Visit: No Status: Chronic Code(s): F25.9 - SCHIZOAFFECTIVE DISORDER , UNSPECIFIED Qualifiers: Schizoaffective disorder type: bipolar Qualified Code(s): F25.0 - Schizoaffective disorder, bipolar type (13) Acute respiratory failure with hypoxia Current Visit: No Status: Chronic Code(s): J96.01 - ACUTE RESPIRATORY FAILURE WITH HYPOXIA - Plan Ms Baldwin is a 68yo female with pmh of COPD, HFpEF, HTN, tobacco abuse, Schizoaffective presented with SOB admitted for COPD exacerbation and sepsis 2/ 2 UTI Sepsis 2/2 pyelonephritis - Temp 106 rectal, tachycardic 118 although receiving albuterol, leukocytosis - CT: Mild prominence of left renal pelvis with perinephric haziness suggesting inflammation. - s/p Ceftriaxone in ED - Urine and blood cultures pending - Start Zosyn and Vanc Acute on Chronic hypoxic respiratory failure 2/2 COPD exacerbation - Currently on 3L NC (new requirement), titrate O2 to SpO2 88-90% - Continue to monitor O2 and titrate oxygen to SpO2 88-90% - s/p Mg, solumedrol, duonebs in ED - Continue home Spiriva, Symbicort - Duonebs q4hr JESSICA, q2hr PRN - Continue Prednisone - PRN expectorants - Admit to IMCU Urinary retention - Higginbotham placed in ED Prediabetes - A1c 6.2% on 05/2017 Hypokalemia - 3.3 - 40meq PO ordered Chronic Transaminitis - Hx of hepatitic steatosis Leukocytosis - Likely 2/2 pyelonephritis as above HFpEF - BNP nml, does not appear volume overloaded - Echo 02/2015: Grade 1 diastolic dysfunction. Right sided heart failure - Strict I&Os, daily wt - HH diet with fluid restriction Tobacco Abuse - Parts Room Clerk on smoking cessation Code Status: Chemical code only DVT ppx: SCDs PCP: [facility] (Dr Esposito) FMR H&P: Upper Level - Pertinent history Paula Baldwin is a 68 year old female with a past history of COPD who presented to the ED with increased shortness of breath and non-productive cough. Pt states that this was triggered by smoking 2 entire packs of cigarettes today. On arrival to the ED she was initially treated for her respiratory difficulty when she spiked a temp of 106. Of note she reports recently being treated for UTI in the ED at the [facility]. She is unsure of what antibiotic she was given. She also reports urinary retention for the past 3 days. - Pertinent findings Tmax of 106. P:105 Exam: General: Alert and oriented x 3 Heart: mild tachycardia, regular rhythm, and no murmurs,rubs, or gallops.s Lungs: diffuse inspiratory and expiratory wheezes heard Abdomen: suprapubic tenderness to palpation; No CVA tenderness. - Plan Date/Time: 07/13/182039 ICt, have evaluated this patient and agree with findings/plan as outlined by spring intern resident. Pertinent changes/additions are listed here. Sepsis secondary to pyelonephritis - Will continue broad-spectrum antibiotics. - blood and urine cultures pending. COPD Exacerbation - Duonebs Q4H scheduled and Q2 PRN. - supplemental O2 prn - prednisone 40 mg qd x 5 days - continue spiriva and symbicort - expectorants prn - smoking cessation strongly encouraged. Hypokalemia - will replace. - monitor AM BMP Urinary retention - higginbotham placed in ED. - will look through medications to see if any can cause urinary retention. - otherwise, will try voiding trial in AM. Regarding pt's chronic medical problems, home medications will be restarted as described above. Addendum - Attending - Attending Attestation Date/Time: 07/14/18 2734 I personally evaluated the patient and discussed the management with Dr. Gilmore /Julianna I agree with the History, Examination, Assessment and Plan documented above with any addition or exceptions noted below. 68 yo female smoker with COPD exacerbation , urinary retention and sepsis secondary to pyelonephritis recommend broad spectrum coverage consider multidrug resistent UTI and ESBL pendng culture results patient recently given antibiotic for UTI.
--- NOTE | 2018-07-13 20:57 | CT ---
FCT abdomen and pelvis with IV contrast. Oral contrast was not administered. INDICATIONS: Abdominal pain COMPARISON: 02/28/2017 FINDINGS: Lung bases are clear Liver, spleen, and pancreas appear unremarkable. Stomach and duodenum appear unremarkable. Adrenal glands appear normal. There are bilateral renal cystic lesions which appear stable from prior exam. There is prominence of the left renal pelvis with mild perinephric stranding surrounding the renal pelvis. No calculus or ob structive lesion. UTIs should be considered. The urinary bladder is distended Small bowel loops show nonspecific fluid-filled distention. Appendix is identified and appears unremarkable. : Is poorly distended and not well evaluated. Numerous diverticula in the sigmoid Aorta is normal caliber. Nonspecific para-aortic lymph nodes are again noted, subcentimeter in size Uterus is heterogeneous with an area of calcification in the right myometrium probably representing f ibroid. Subcutaneous tissues, abdominal wall, and muscular structures appear unremarkable. Osseous structures appear unremarkable. IMPRESSION: 1. Mild prominence of the left renal pelvis with perinephric haziness suggesting inflammation. Consid er urinary tract infection. 2. Nonspecific small bowel distention
[2018-07-13 22:55] LABS: Lactic Acid 2.4 mmol/L (0.5-2.2)
[2018-07-14] MEDS ORDERED: Potassium Chloride 20 MEQ TAB PO ONE (00:03)
[2018-07-14] MEDS ORDERED: guaiFENesin ER 600 MG TAB PO PRN (00:03)
[2018-07-14] MEDS ORDERED: Ibuprofen 800 MG TAB PO PRN (00:03)
[2018-07-14] MEDS ORDERED: Lactated Ringer's 1,000 ML IV SCH (00:03)
[2018-07-14] MEDS ORDERED: Acetaminophen 325 MG TAB PO PRN (00:03)
[2018-07-14] MEDS: Nicotine 14 MG PATCH TD SCH ×2 (00:40→23:48)
[2018-07-14] MEDS: Piperacillin/Tazobactam 3.375 GM in Sodium Chloride 0.9% 100 ML IVPB SCH ×4 (00:52→20:12)
[2018-07-14 01:00] LABS: Lactic Acid 3.3 mmol/L (0.5-2.2)
[2018-07-14] MEDS ORDERED: Sodium Chloride 0.9% 500 ML IV SCH (01:15)
[2018-07-14] MEDS: Levothyroxine Sodium 25 MCG TAB PO SCH (05:45)
[2018-07-14] MEDS: Levothyroxine Sodium 112 MCG TAB PO SCH (05:45)
[2018-07-14 05:49] VITALS: BMI 22.6
[2018-07-14 05:53] LABS: Lactic Acid 2.8 mmol/L (0.5-2.2)
[2018-07-14 05:57] LABS: Anion Gap 13 mmol/L (10-20); BUN (Urea Nitrogen) 8 mg/dL (9.8-20.1); Calc. Creatinine Clearance 62 mL/min (70-130); Calcium 8.4 mg/dL (7.8-10.44); Carbon Dioxide 22 mmol/L (23-31); Chloride 104 mmol/L (98-107); Estimated GFR-MDRD 76; Glucose 223 mg/dL (80-115); Potassium 3.6 mmol/L (3.5-5.1); Sodium 135 mmol/L (136-145)
[2018-07-14 06:47] LABS: Band 28 % (5-11); Hemoglobin 11.5 g/dL (12.0-16.0); Lymphocytes 2 % (21-51); MDiff Complete? YES; Mean Corpuscular HGB CONC 31.5 g/dL (32.0-36.0); Mean Corpuscular Hemoglobin 30.4 pg (27.0-31.0); Mean Corpuscular Volume 96.6 fL (78.0-98.0); Neutrophil 70 % (42-75); Platelet Count 220 thou/uL (130-400); RBC Distribution Width 14.5 % (11.5-14.5); Red Blood Cell (RBC) Count 3.78 mill/uL (4.20-5.40); White Blood Cell (WBC) Count 27.4 thou/uL (4.8-10.8)
[2018-07-14] MEDS: Mometasone/Formoterol 120 PUFF INHALER INH SCH ×2 (07:10→19:29)
--- NOTE | 2018-07-14 07:25 | PDOC.FM ---
- Subjective Subjective: Pt reports she is breathing well and wants to go home. She states her back pain is improved and she needs to be out by Monday to move to a new location Monday. She denies chest pain, abdominal pain, or nausea/vomiting. - Objective MAR Reviewed: Yes Vital Signs & Weight: Vital Signs (12 hours) Temp Pulse Resp Pulse Ox 07/14/18 07:10 88 24 H 94 L 07/14/18 07:00 98.7 F 07/14/18 06:57 94 L 07/14/18 06:53 88 24 H 94 L 07/14/18 02:06 83 27 H 96 07/13/18 23:36 98 Weight Weight 56.245 kg Most Recent Monitor Data Heart Rate from ECG 79 NIBP 130/83 NIBP BP-Mean 98 Respiration from ECG 21 SpO2 98 I&O: 07/13/18 07/14/18 07/15/18 06:59 06:59 06:59 Intake Total 1455 Output Total 1550 Balance -95 Result Diagrams: 07/14/18 04:55 07/14/18 04:55 Phys Exam - Physical Examination Constitutional: NAD HEENT: moist MMs Neck: no JVD, full ROM Respiratory: wheezing present (mild in bilateral lung ziegler) Good air movement Cardiovascular: RRR, no significant murmur, no rub Gastrointestinal: soft, non-tender, no distention, positive bowel sounds Mild CVA tenderness Musculoskeletal: no edema, pulses present Neurological: normal sensation, moves all 4 limbs Psychiatric: normal affect, A&O x 3 Skin: cap refill <2 seconds Dx/Plan (1) Pyelonephritis Code(s): N12 - TUBULO-INTERSTITIAL NEPHRITIS, NOT SPCF ACUTE OR CHRONIC Status: Acute (2) (HFpEF) heart failure with preserved ejection fraction Code(s): I50.30 - UNSPECIFIED DIASTOLIC (CONGESTIVE) HEART FAILURE Status: Chronic (3) Anemia Code(s): D64.9 - ANEMIA, UNSPECIFIED Status: Chronic (4) Osteoarthritis Code(s): M19.90 - UNSPECIFIED OSTEOARTHRITIS, UNSPECIFIED SITE Status: Chronic (5) Tobacco abuse Code(s): Z72.0 - TOBACCO USE Status: Chronic (6) Transaminitis Code(s): R74.0 - NONSPEC ELEV OF LEVELS OF TRANSAMNS & LACTIC ACID DEHYDRGNSE Status: Chronic (7) COPD with acute exacerbation Code(s): J44.1 - CHRONIC OBSTRUCTIVE PULMONARY DISEASE W (ACUTE) EXACERBATION Status: Acute (8) Hypokalemia Code(s): E87.6 - HYPOKALEMIA Status: Acute (9) Acute respiratory failure with hypoxia Code(s): J96.01 - ACUTE RESPIRATORY FAILURE WITH HYPOXIA Status: Chronic (10) Bipolar disorder Code(s): F31.9 - BIPOLAR DISORDER, UNSPECIFIED Status: Chronic (11) Gastroesophageal reflux disease Code(s): K21.9 - GASTRO-ESOPHAGEAL REFLUX DISEASE WITHOUT ESOPHAGITIS Status: Chronic (12) Hepatic steatosis Code(s): K76.0 - FATTY (CHANGE OF) LIVER, NOT ELSEWHERE CLASSIFIED Status: Chronic (13) Hypothyroidism Code(s): E03.9 - HYPOTHYROIDISM, UNSPECIFIED Status: Chronic (14) Schizoaffective disorder Code(s): F25.9 - SCHIZOAFFECTIVE DISORDER, UNSPECIFIED Status: Chronic Qualifiers: Schizoaffective disorder type: bipolar Qualified Code(s): F25.0 - Schizoaffective disorder, bipolar type - Plan Plan: This is a 68 yo female with a pmh COPD, HFpEF, HTN, tobacco abuse, schizoaffective disorder Sepsis 2/2 pyelonephritis, improving -Currently afebrile, vss stable -CT: suggestive for left pyelonephritis -Vanc and zosyn for abx coverage -Pending Urine and blood cultures -Likely another day of IV abx and switch to oral based on sensitivities tomorrow Acute on chronic hypoxic respiratory failure 2/2 COPD exacerbation -Improving, stable on RA -Continue monitoring to maintain O2 between 88-90% -Continue prendisone and cele and PRN duonebs -PRN mucinex -Possible transfer to floor today Urinary retention -S/P higginbotham Prediabetes -A1c 6.2 Hypokalemia, resolved Lactic acidemia -Tending down Leukocytosis -Trending up, pyelonephritis and steroids contributing to finding Chronic transaminitis -Hx of hepatic steatosis HFpEF -BNP nml -Will need outpt Echo to as pt does not have recent study Tobacco abuse -Has quit before by praying and reading her bible, encouraging pt to repeat this plan Addendum - Attending - Attending Attestation Date/Time: 07/14/18 0114 I personally evaluated the patient and discussed the management with Dr. Ramírez I agree with the History, Examination, Assessment and Plan documented above with any addition or exceptions noted below. Clinically improved should be able to step down level of care overall improvement start bladder training await culture regard de-escalation antibiotics.
[2018-07-14] MEDS: Gabapentin 100 MG CAP PO SCH ×3 (08:46→20:15)
[2018-07-14] MEDS: predniSONE 20 MG TAB PO SCH (08:46)
[2018-07-14] MEDS: Folic Acid 1 MG TAB PO SCH (08:46)
[2018-07-14] MEDS: PARoxetine 20 MG TAB PO SCH (08:47)
[2018-07-14] MEDS: metFORMIN XR 500 MG TAB PO SCH (08:48)
[2018-07-14] MEDS ORDERED: Spiriva 18 MCG CAP (Box of 5 Caps) INH SCH (09:00)
[2018-07-14] MEDS: Atorvastatin Calcium 10 MG TAB PO SCH (20:15)
[2018-07-14] MEDS ORDERED: Vancomycin HCl 1 GM in Premix Bag 1 BAG IVPB SCH (22:00)
[2018-07-15] MEDS: Piperacillin/Tazobactam 3.375 GM in Sodium Chloride 0.9% 100 ML IVPB SCH (02:11)
[2018-07-15 04:21] LABS: #Lymphocytes 1.9 thou/uL (1.20-3.40); #Monocytes 1.3 thou/uL (0.11-0.59); #Neutrophils 15.9 thou/uL (1.40-6.50); %Basophils 0.1 % (0.0-1.0); %Eosinophils 0.1 % (0.0-10.0); %Lymphocytes 9.8 % (21.0-51.0); %Monocytes 6.7 % (0.0-10.0); %Neutrophils 83.4 % (42.0-75.0); Hemoglobin 10.6 g/dL (12.0-16.0); Mean Corpuscular HGB CONC 32.4 g/dL (32.0-36.0); Mean Corpuscular Hemoglobin 30.8 pg (27.0-31.0); Mean Corpuscular Volume 94.9 fL (78.0-98.0); Mean Platelet Volume 7.8 fL (7.4-10.4); Platelet Count 201 thou/uL (130-400); RBC Distribution Width 14.5 % (11.5-14.5); Red Blood Cell (RBC) Count 3.43 mill/uL (4.20-5.40); White Blood Cell (WBC) Count 19.1 thou/uL (4.8-10.8)
[2018-07-15 04:42] LABS: Anion Gap 11 mmol/L (10-20); BUN (Urea Nitrogen) 9 mg/dL (9.8-20.1); Calc. Creatinine Clearance 65 mL/min (70-130); Calcium 8.9 mg/dL (7.8-10.44); Carbon Dioxide 25 mmol/L (23-31); Chloride 107 mmol/L (98-107); Estimated GFR-MDRD 81; Glucose 133 mg/dL (80-115); Sodium 140 mmol/L (136-145)
[2018-07-15] MEDS: Levothyroxine Sodium 25 MCG TAB PO SCH (06:28)
[2018-07-15] MEDS: Levothyroxine Sodium 112 MCG TAB PO SCH (06:28)
--- NOTE | 2018-07-15 06:45 | PDOC.FM ---
- Subjective Subjective: Pt reports she is feeling better. No fever or chills overnight. She has voided on her own and has been up walking around. She denies SOB, chest pain, dysuria, abdominal pain, nausea, or vomiting. - Objective MAR Reviewed: Yes Vital Signs & Weight: Vital Signs (12 hours) Temp Pulse Resp BP BP Pulse Ox 07/15/18 03:13 98.1 F 90 16 145/83 H 90 L 07/15/18 02:06 84 16 92 L 07/15/18 00:00 97.8 F 93 16 140/88 92 L 07/14/18 22:32 86 14 07/14/18 19:27 85 18 95 07/14/18 19:25 98.2 F 92 20 152/80 H 93 L Weight Admit Weight 56.245 kg Weight 55.905 kg Most Recent Monitor Data Heart Rate from ECG 94 NIBP 127/98 NIBP BP-Mean 107 Respiration from ECG 17 SpO2 94 I&O: 07/13/18 07/14/18 07/15/18 06:59 06:59 06:59 Intake Total 1455 240 Output Total 1550 3850 Balance -95 -3610 Result Diagrams: 07/15/18 04:12 07/15/18 04:12 Phys Exam - Physical Examination Constitutional: NAD HEENT: moist MMs Neck: supple, full ROM End expiratory wheezing, good air movement globally Cardiovascular: RRR, no significant murmur, no rub Gastrointestinal: soft, non-tender, no distention, positive bowel sounds Musculoskeletal: no edema, pulses present Neurological: normal sensation, moves all 4 limbs Psychiatric: normal affect, A&O x 3 Skin: cap refill <2 seconds Dx/Plan (1) Pyelonephritis Code(s): N12 - TUBULO-INTERSTITIAL NEPHRITIS, NOT SPCF ACUTE OR CHRONIC Status: Acute (2) (HFpEF) heart failure with preserved ejection fraction Code(s): I50.30 - UNSPECIFIED DIASTOLIC (CONGESTIVE) HEART FAILURE Status: Chronic (3) Anemia Code(s): D64.9 - ANEMIA, UNSPECIFIED Status: Chronic (4) Osteoarthritis Code(s): M19.90 - UNSPECIFIED OSTEOARTHRITIS, UNSPECIFIED SITE Status: Chronic (5) Tobacco abuse Code(s): Z72.0 - TOBACCO USE Status: Chronic (6) Transaminitis Code(s): R74.0 - NONSPEC ELEV OF LEVELS OF TRANSAMNS & LACTIC ACID DEHYDRGNSE Status: Chronic (7) COPD with acute exacerbation Code(s): J44.1 - CHRONIC OBSTRUCTIVE PULMONARY DISEASE W (ACUTE) EXACERBATION Status: Acute (8) Hypokalemia Code(s): E87.6 - HYPOKALEMIA Status: Acute (9) Acute respiratory failure with hypoxia Code(s): J96.01 - ACUTE RESPIRATORY FAILURE WITH HYPOXIA Status: Chronic (10) Bipolar disorder Code(s): F31.9 - BIPOLAR DISORDER, UNSPECIFIED Status: Chronic (11) Gastroesophageal reflux disease Code(s): K21.9 - GASTRO-ESOPHAGEAL REFLUX DISEASE WITHOUT ESOPHAGITIS Status: Chronic (12) Hepatic steatosis Code(s): K76.0 - FATTY (CHANGE OF) LIVER, NOT ELSEWHERE CLASSIFIED Status: Chronic (13) Hypothyroidism Code(s): E03.9 - HYPOTHYROIDISM, UNSPECIFIED Status: Chronic (14) Schizoaffective disorder Code(s): F25.9 - SCHIZOAFFECTIVE DISORDER, UNSPECIFIED Status: Chronic Qualifiers: Schizoaffective disorder type: bipolar Qualified Code(s): F25.0 - Schizoaffective disorder, bipolar type - Plan Plan: This is a 68 yo female with a pmh COPD, HFpEF, HTN, tobacco abuse, schizoaffective disorder Sepsis 2/2 pyelonephritis, improving -Currently afebrile, vss stable -CT: suggestive for left pyelonephritis -Urine and blood cultures show E coli, switching pt to zosyn only -Plan to switch to oral abx based on sensitivities Acute on chronic hypoxic respiratory failure 2/2 COPD exacerbation -Improving, stable on RA -Continue monitoring to maintain O2 between 88-90% -Continue prendisone and cele and PRN duonebs -PRN mucinex Urinary retention -Pt urinating on her own, pending post void bladder scans Prediabetes -A1c 6.2 Hypokalemia -Likely low due to albuterol, will replace Lactic acidemia -Tending down Leukocytosis -Decreasing Chronic transaminitis -Hx of hepatic steatosis HFpEF -BNP nml -Will need outpt Echo to as pt does not have recent study Tobacco abuse -Has quit before by praying and reading her bible, encouraging pt to repeat this plan Addendum - Attending - Attending Attestation Date/Time: 07/15/18 1101 I personally evaluated the patient and discussed the management with Dr. Ramírez I agree with the History, Examination, Assessment and Plan documented above with any addition or exceptions noted below. Patient stable for dismissal on 10 day course of po antibiotic for sepsis secondary to pyelonephritis. Patient alert ambulating in room off oxygen dismiss with f/u with [facility] as scheduled
[2018-07-15] MEDS: Mometasone/Formoterol 120 PUFF INHALER INH SCH ×2 (09:24→19:20)
[2018-07-15] MEDS: predniSONE 20 MG TAB PO SCH (09:58)
[2018-07-15] MEDS: PARoxetine 20 MG TAB PO SCH (09:59)
[2018-07-15] MEDS: Gabapentin 100 MG CAP PO SCH ×3 (09:59→20:24)
[2018-07-15] MEDS: Potassium Chloride 20 MEQ TAB PO SCH ×3 (10:00→16:07)
[2018-07-15] MEDS: Folic Acid 1 MG TAB PO SCH (10:00)
[2018-07-15] MEDS: metFORMIN XR 500 MG TAB PO SCH (10:53)
[2018-07-15] MEDS: Docusate 100 MG CAP PO PRN (16:07)
[2018-07-15] MEDS: Atorvastatin Calcium 10 MG TAB PO SCH (20:24)
[2018-07-15] MEDS ORDERED: Labetalol HCl 100 MG/20 ML VIAL SLOW IVP SCH (21:30)
[2018-07-16] MEDS: Nicotine 14 MG PATCH TD SCH (00:08)
[2018-07-16 04:19] LABS: #Basophils 0.1 thou/uL (0.0-0.2); #Lymphocytes 1.7 thou/uL (1.20-3.40); #Monocytes 0.8 thou/uL (0.11-0.59); #Neutrophils 9.5 thou/uL (1.40-6.50); %Basophils 0.8 % (0.0-1.0); %Eosinophils 0.4 % (0.0-10.0); %Lymphocytes 14.1 % (21.0-51.0); %Monocytes 6.7 % (0.0-10.0); Hemoglobin 10.8 g/dL (12.0-16.0); Mean Corpuscular HGB CONC 32.4 g/dL (32.0-36.0); Mean Corpuscular Hemoglobin 30.6 pg (27.0-31.0); Mean Corpuscular Volume 94.5 fL (78.0-98.0); Mean Platelet Volume 7.7 fL (7.4-10.4); Platelet Count 225 thou/uL (130-400); RBC Distribution Width 14.5 % (11.5-14.5); Red Blood Cell (RBC) Count 3.53 mill/uL (4.20-5.40); White Blood Cell (WBC) Count 12.1 thou/uL (4.8-10.8)
[2018-07-16 04:38] LABS: Anion Gap 11 mmol/L (10-20); BUN (Urea Nitrogen) 9 mg/dL (9.8-20.1); Calc. Creatinine Clearance 76 mL/min (70-130); Calcium 9.9 mg/dL (7.8-10.44); Carbon Dioxide 27 mmol/L (23-31); Chloride 105 mmol/L (98-107); Estimated GFR-MDRD Greater than 90; Glucose 143 mg/dL (80-115); Potassium 4.1 mmol/L (3.5-5.1); Sodium 139 mmol/L (136-145)
[2018-07-16] MEDS: Levothyroxine Sodium 112 MCG TAB PO SCH (05:42)
[2018-07-16] MEDS: Levothyroxine Sodium 25 MCG TAB PO SCH (05:42)
--- NOTE | 2018-07-16 06:01 | PDOC.FM ---
- Subjective Subjective: Nursing reports pt did well overnight. Nursing reports 500ml post void residual She was up to urinate multiple times. Pt reports she is feeling well. She denies any CP, SOB, fever or chills, nausea, or vomiting. She denies dysuria. - Objective MAR Reviewed: Yes Vital Signs & Weight: Vital Signs (12 hours) Temp Pulse Resp BP BP BP Pulse Ox 07/16/18 03:55 97.4 F L 82 16 163/89 H 91 L 07/16/18 00:00 98.1 F 97 16 168/80 H 92 L 07/15/18 21:40 109 H 183/111 H 07/15/18 20:00 97 07/15/18 19:36 97.7 F 109 H 20 183/111 H 97 07/15/18 19:23 92 L 07/15/18 19:22 92 L 07/15/18 19:20 92 L Weight Admit Weight 56.245 kg Weight 54.204 kg Most Recent Monitor Data Heart Rate from ECG 94 NIBP 127/98 NIBP BP-Mean 107 Respiration from ECG 17 SpO2 94 I&O: 07/14/18 07/15/18 07/16/18 06:59 06:59 06:59 Intake Total 6427 980 2718 Output Total 1550 3850 Balance -95 -3610 1880 Result Diagrams: 07/16/18 04:11 07/16/18 04:11 Phys Exam - Physical Examination Constitutional: NAD HEENT: moist MMs Neck: supple, full ROM mild end expiratory wheezing Cardiovascular: RRR, no significant murmur Gastrointestinal: soft, non-tender, no distention, positive bowel sounds Musculoskeletal: no edema, pulses present Neurological: normal sensation, moves all 4 limbs Psychiatric: normal affect, A&O x 3 Skin: normal turgor, cap refill <2 seconds Dx/Plan (1) Pyelonephritis Code(s): N12 - TUBULO-INTERSTITIAL NEPHRITIS, NOT SPCF ACUTE OR CHRONIC Status: Acute (2) (HFpEF) heart failure with preserved ejection fraction Code(s): I50.30 - UNSPECIFIED DIASTOLIC (CONGESTIVE) HEART FAILURE Status: Chronic (3) Anemia Code(s): D64.9 - ANEMIA, UNSPECIFIED Status: Chronic (4) Osteoarthritis Code(s): M19.90 - UNSPECIFIED OSTEOARTHRITIS, UNSPECIFIED SITE Status: Chronic (5) Tobacco abuse Code(s): Z72.0 - TOBACCO USE Status: Chronic (6) Transaminitis Code(s): R74.0 - NONSPEC ELEV OF LEVELS OF TRANSAMNS & LACTIC ACID DEHYDRGNSE Status: Chronic (7) COPD with acute exacerbation Code(s): J44.1 - CHRONIC OBSTRUCTIVE PULMONARY DISEASE W (ACUTE) EXACERBATION Status: Acute (8) Hypokalemia Code(s): E87.6 - HYPOKALEMIA Status: Acute (9) Acute respiratory failure with hypoxia Code(s): J96.01 - ACUTE RESPIRATORY FAILURE WITH HYPOXIA Status: Chronic (10) Bipolar disorder Code(s): F31.9 - BIPOLAR DISORDER, UNSPECIFIED Status: Chronic (11) Gastroesophageal reflux disease Code(s): K21.9 - GASTRO-ESOPHAGEAL REFLUX DISEASE WITHOUT ESOPHAGITIS Status: Chronic (12) Hepatic steatosis Code(s): K76.0 - FATTY (CHANGE OF) LIVER, NOT ELSEWHERE CLASSIFIED Status: Chronic (13) Hypothyroidism Code(s): E03.9 - HYPOTHYROIDISM, UNSPECIFIED Status: Chronic (14) Schizoaffective disorder Code(s): F25.9 - SCHIZOAFFECTIVE DISORDER, UNSPECIFIED Status: Chronic Qualifiers: Schizoaffective disorder type: bipolar Qualified Code(s): F25.0 - Schizoaffective disorder, bipolar type - Plan Plan: This is a 68 yo female with a pmh COPD, HFpEF, HTN, tobacco abuse, schizoaffective disorder Sepsis 2/2 pyelonephritis, resolved -Currently afebrile, vss stable -CT: suggestive for left pyelonephritis -Urine and blood cultures show E coli, PO levaquin based on sensitivities Acute on chronic hypoxic respiratory failure 2/2 COPD exacerbation -Improving, stable on RA -Continue monitoring to maintain O2 between 88-90% -Continue prendisone and cele and PRN duonebs -PRN mucinex HTN -Adding HCTZ 12.5 Urinary retention -Pt had 400ml post void yesterday, working on bladder training -Flowmax Prediabetes -A1c 6.2 Hypokalemia -Resolved Lactic acidemia -Tending down Leukocytosis -Decreasing Chronic transaminitis -Hx of hepatic steatosis HFpEF -BNP nml -Will need outpt Echo to as pt does not have recent study Tobacco abuse -Has quit before by praying and reading her bible, encouraging pt to repeat this plan
[2018-07-16] MEDS: Mometasone/Formoterol 120 PUFF INHALER INH SCH ×2 (06:44→19:01)
[2018-07-16] MEDS: metFORMIN XR 500 MG TAB PO SCH (10:02)
[2018-07-16] MEDS: predniSONE 20 MG TAB PO SCH (10:02)
[2018-07-16] MEDS: Gabapentin 100 MG CAP PO SCH ×3 (10:02→20:07)
[2018-07-16] MEDS: Hydrochlorothiazide 25 MG TAB PO SCH (10:03)
[2018-07-16] MEDS: Docusate 100 MG CAP PO PRN (10:03)
[2018-07-16] MEDS: Folic Acid 1 MG TAB PO SCH (10:03)
[2018-07-16] MEDS: PARoxetine 20 MG TAB PO SCH (10:03)
[2018-07-16] MEDS: Potassium Chloride 20 MEQ TAB PO SCH ×3 (10:03→16:50)
[2018-07-16] MEDS: Tamsulosin HCl 0.4 MG CAP PO SCH (10:04)
[2018-07-16] MEDS: Polyethylene Glycol 3350 17 GM Packet PO PRN (10:10)
--- NOTE | 2018-07-16 11:59 | PRG ---
DATE OF SERVICE: Ms. Baldwin is awake, alert, walking around the room and anxious to go home. She had a urinary tract infection, which is under good control. She states that for the last several months she has had problems emptying her bladder and she did have significant retention upon admission. We will touch base with Urology to see if they would like to see her as an outpatient to work on this problem. If not, we will consult them while she is still in the hospital. In the event, her UTI seems under good control and she is currently afebrile. Job ID: [id number]
[2018-07-16] MEDS ORDERED: Benzonatate 100 MG CAP PO PRN (16:25)
[2018-07-16] MEDS: Atorvastatin Calcium 10 MG TAB PO SCH (20:07)
--- NOTE | 2018-07-16 21:19 | CON ---
DATE OF CONSULTATION: 07/16/2018 CHIEF COMPLAINT: Urinary tract infection, incomplete bladder emptying. HISTORY OF PRESENT ILLNESS: Ms. Baldwin is a 68-year-old female with schizoaffective disorder along with COPD and hypertension. She presented to [facility] on 07/13/2018 with shortness of breath and fever. She has since been diagnosed with positive urine and blood cultures. She states that she was treated for urinary tract infection approximately a month ago . She completed her antibiotics several days prior to presenting to [facility]. She was complaining of frequent small volume voiding and a bladder scan and catheterized residual demonstrated a volume between 400 mL and 500 mL of postvoid residual. Since being catheterized and being emptied completely, she feels that she has been voiding better. PAST MEDICAL HISTORY: Gastroesophageal reflux disease, COPD, anxiety, depression, schizoaffective disorder, osteoarthritis, hypothyroidism, tobacco abuse, hypertension. PAST SURGICAL HISTORY: Cholecystectomy, , tubal ligation, bowel resection for small bowel obstruction in 2008, bowel resection in 2017, left knee replacement. FAMILY HISTORY: Noncontributory. SOCIAL HISTORY: Long (80+ pack-year) smoking history. Denies alcohol use or drug use. She lives with some friends. REVIEW OF SYSTEMS: RESPIRATORY: Breathing has improved significantly since admission. CARDIOVASCULAR: Denies chest pain or palpitations. GASTROINTESTINAL: Has a prior history of small bowel obstruction. Denies any chronic constipation or diarrhea at this time. GENITOURINARY: No prior history of stones or kidney surgeries. NEUROLOGIC: Schizoaffective disorder. LABORATORY DATA: Admission white count 27,000. Admission urine culture demonstrates E coli sensitive to amikacin, cefoxitin, Cipro, gentamicin, Levaquin, imipenem, Macrobid, Pipracil/tazobactam, and tobramycin, resistant to Bactrim, ampicillin, and ceftriaxone. PHYSICAL EXAMINATION: GENERAL: She is awake and alert. She is in no distress. HEENT: Normocephalic, atraumatic. NECK: Supple without masses. CHEST: Clear to auscultation. CARDIOVASCULAR: No murmurs auscultated. ABDOMEN: Soft, nontender. No palpable masses. Liver and spleen, not palpable. No abdominal tenderness. IMAGING: CT scan demonstrates no obstructive uropathy. There are findings consistent with early left-sided pyelonephritis. IMPRESSION: Recurrent urinary tract infection, she states occurs approximately every three or four months. She currently has positive urine and blood cultures for Escherichia coli. She should be treated with two weeks of oral antibiotic therapy. She is also noted to have incomplete bladder emptying. She will need to obtain followup for this and may require teaching of intermittent catheterization. She states that since she was catheterized today, her voiding seems to have improved. RECOMMENDATIONS: 1. Two week antibiotic therapy. 2. We will arrange followup in our office to check her postvoid residuals and possibly teach intermittent catheterization bladder emptying process. Job ID: [id number]
[2018-07-17] MEDS: Nicotine 14 MG PATCH TD SCH (00:55)
[2018-07-17 04:39] LABS: #Eosinphils 0.1 thou/uL (0.0-0.7); #Lymphocytes 2.2 thou/uL (1.20-3.40); #Monocytes 0.9 thou/uL (0.11-0.59); #Neutrophils 8.5 thou/uL (1.40-6.50); %Basophils 0.3 % (0.0-1.0); %Eosinophils 0.6 % (0.0-10.0); %Lymphocytes 18.6 % (21.0-51.0); %Monocytes 7.4 % (0.0-10.0); %Neutrophils 73.1 % (42.0-75.0); Hemoglobin 11.6 g/dL (12.0-16.0); Mean Corpuscular HGB CONC 33.7 g/dL (32.0-36.0); Mean Corpuscular Hemoglobin 31.5 pg (27.0-31.0); Mean Corpuscular Volume 93.5 fL (78.0-98.0); Mean Platelet Volume 7.5 fL (7.4-10.4); Platelet Count 269 thou/uL (130-400); RBC Distribution Width 14.4 % (11.5-14.5); Red Blood Cell (RBC) Count 3.69 mill/uL (4.20-5.40); White Blood Cell (WBC) Count 11.6 thou/uL (4.8-10.8)
[2018-07-17 04:55] LABS: Anion Gap 12 mmol/L (10-20); BUN (Urea Nitrogen) 13 mg/dL (9.8-20.1); Calc. Creatinine Clearance 55 mL/min (70-130); Calcium 10.4 mg/dL (7.8-10.44); Carbon Dioxide 27 mmol/L (23-31); Chloride 99 mmol/L (98-107); Estimated GFR-MDRD 70; Glucose 201 mg/dL (80-115); Potassium 4.4 mmol/L (3.5-5.1); Sodium 134 mmol/L (136-145)
[2018-07-17] MEDS: Levothyroxine Sodium 25 MCG TAB PO SCH (06:12)
[2018-07-17] MEDS: Levothyroxine Sodium 112 MCG TAB PO SCH (06:12)
--- NOTE | 2018-07-17 06:14 | PDOC.FM ---
- Subjective Subjective: Pt states she is reading to go home. She states she is breathing fine this morning and has no dysuria. She does report frequency. - Objective MAR Reviewed: Yes Vital Signs & Weight: Vital Signs (12 hours) Temp Pulse Resp BP Pulse Ox 07/17/18 01:35 103 H 20 92 L 07/16/18 21:45 94 16 92 L 07/16/18 21:00 93 L 07/16/18 19:37 97.4 F L 108 H 18 129/82 93 L 07/16/18 18:59 109 H 18 92 L Weight Admit Weight 56.245 kg Weight 54.204 kg Most Recent Monitor Data Heart Rate from ECG 94 NIBP 127/98 NIBP BP-Mean 107 Respiration from ECG 17 SpO2 94 I&O: 07/15/18 07/16/18 07/17/18 06:59 06:59 06:59 Intake Total 240 1880 1200 Output Total 3850 500 Balance -3610 1880 700 Result Diagrams: 07/17/18 04:19 07/17/18 04:19 Phys Exam - Physical Examination Constitutional: NAD HEENT: moist MMs Neck: supple, full ROM End expiratory wheezing, good air movement Cardiovascular: RRR, no significant murmur Gastrointestinal: soft, non-tender, no distention, positive bowel sounds Musculoskeletal: no edema, pulses present Neurological: moves all 4 limbs Psychiatric: normal affect, A&O x 3 Skin: cap refill <2 seconds Dx/Plan (1) Pyelonephritis Code(s): N12 - TUBULO-INTERSTITIAL NEPHRITIS, NOT SPCF ACUTE OR CHRONIC Status: Acute (2) (HFpEF) heart failure with preserved ejection fraction Code(s): I50.30 - UNSPECIFIED DIASTOLIC (CONGESTIVE) HEART FAILURE Status: Chronic (3) Anemia Code(s): D64.9 - ANEMIA, UNSPECIFIED Status: Chronic (4) Osteoarthritis Code(s): M19.90 - UNSPECIFIED OSTEOARTHRITIS, UNSPECIFIED SITE Status: Chronic (5) Tobacco abuse Code(s): Z72.0 - TOBACCO USE Status: Chronic (6) Transaminitis Code(s): R74.0 - NONSPEC ELEV OF LEVELS OF TRANSAMNS & LACTIC ACID DEHYDRGNSE Status: Chronic (7) COPD with acute exacerbation Code(s): J44.1 - CHRONIC OBSTRUCTIVE PULMONARY DISEASE W (ACUTE) EXACERBATION Status: Acute (8) Hypokalemia Code(s): E87.6 - HYPOKALEMIA Status: Acute (9) Acute respiratory failure with hypoxia Code(s): J96.01 - ACUTE RESPIRATORY FAILURE WITH HYPOXIA Status: Chronic (10) Bipolar disorder Code(s): F31.9 - BIPOLAR DISORDER, UNSPECIFIED Status: Chronic (11) Gastroesophageal reflux disease Code(s): K21.9 - GASTRO-ESOPHAGEAL REFLUX DISEASE WITHOUT ESOPHAGITIS Status: Chronic (12) Hepatic steatosis Code(s): K76.0 - FATTY (CHANGE OF) LIVER, NOT ELSEWHERE CLASSIFIED Status: Chronic (13) Hypothyroidism Code(s): E03.9 - HYPOTHYROIDISM, UNSPECIFIED Status: Chronic (14) Schizoaffective disorder Code(s): F25.9 - SCHIZOAFFECTIVE DISORDER, UNSPECIFIED Status: Chronic Qualifiers: Schizoaffective disorder type: bipolar Qualified Code(s): F25.0 - Schizoaffective disorder, bipolar type - Plan Plan: This is a 68 yo female with a pmh COPD, HFpEF, HTN, tobacco abuse, schizoaffective disorder Sepsis 2/2 pyelonephritis, resolved -Currently afebrile, vss stable -CT: suggestive for left pyelonephritis -Urine and blood cultures show E coli, PO levaquin based on sensitivities -14 days of abx outpt Acute on chronic hypoxic respiratory failure 2/2 COPD exacerbation -Improving, stable on RA -Continue monitoring to maintain O2 between 88-90% -Continue prendisone and cele and PRN duonebs -PRN mucinex HTN -Adding HCTZ 12.5 Urinary retention -Pt had 400ml post void yesterday, working on bladder training -Flowmax -Outpt follow up planned with Dr. Patel, urology Prediabetes -A1c 6.2 Hypokalemia -Resolved Lactic acidemia -Tending down Leukocytosis -Decreasing Chronic transaminitis -Hx of hepatic steatosis HFpEF -BNP nml -Will need outpt Echo to as pt does not have recent study Tobacco abuse -Has quit before by praying and reading her bible, encouraging pt to repeat this plan
[2018-07-17] MEDS: Hydrochlorothiazide 25 MG TAB PO SCH (07:07)
[2018-07-17] MEDS: Mometasone/Formoterol 120 PUFF INHALER INH SCH (07:09)
[2018-07-17 08:27] VITALS: TEMP 98.6
[2018-07-17] MEDS: Folic Acid 1 MG TAB PO SCH (09:09)
[2018-07-17] MEDS: Docusate 100 MG CAP PO PRN (09:09)
[2018-07-17] MEDS: PARoxetine 20 MG TAB PO SCH (09:09)
[2018-07-17] MEDS: Gabapentin 100 MG CAP PO SCH (09:09)
[2018-07-17] MEDS: Potassium Chloride 20 MEQ TAB PO SCH ×2 (09:09→12:09)
[2018-07-17] MEDS: Tamsulosin HCl 0.4 MG CAP PO SCH (09:09)
[2018-07-17] MEDS: Polyethylene Glycol 3350 17 GM Packet PO PRN (09:09)
[2018-07-17] MEDS: predniSONE 20 MG TAB PO SCH (09:09)
[2018-07-17] MEDS: metFORMIN XR 500 MG TAB PO SCH (10:02)
--- NOTE | 2018-07-17 13:01 | PRG ---
DATE OF SERVICE: The Urology Team came by and saw Ms. Baldwin last night. We appreciate their input. They will see her as an outpatient for her urinary retention. She is doing fine this morning and will be discharged. Job ID: [id number]
[2018-07-17 13:18] VITALS: BP 137/74
== END 2018-07-17 13:29 | disposition home or self-care (01) | DRG 871 ==
LOC: ERS 18:05 → IMCU/EMU 20:30 → ONC 07-14 14:02
PROVIDERS: ADMIT Family Medicine; ATTEND Family Medicine
DX: A41.51 Sepsis due to Escherichia coli [E. coli] (principal); J96.21 Acute and chronic respiratory failure with hypoxia; J44.1 Chronic obstructive pulmonary disease with (acute) exacerbation; N10 Acute pyelonephritis; I50.32 Chronic diastolic (congestive) heart failure; K21.9 Gastro-esophageal reflux disease without esophagitis; F41.9 Anxiety disorder, unspecified; F17.210 Nicotine dependence, cigarettes, uncomplicated; I11.0 Hypertensive heart disease with heart failure; E03.9 Hypothyroidism, unspecified; M19.90 Unspecified osteoarthritis, unspecified site; D64.9 Anemia, unspecified; E87.6 Hypokalemia; K76.0 Fatty (change of) liver, not elsewhere classified; R33.9 Retention of urine, unspecified; F25.0 Schizoaffective disorder, bipolar type; Z16.342 Resistance to multiple antimycobacterial drugs; R74.0 Nonspecific elevation of levels of transaminase and lactic acid dehydrogenase [LDH]; Z98.51 Tubal ligation status; Z88.8 Allergy status to other drugs, medicaments and biological substances; Z90.49 Acquired absence of other specified parts of digestive tract; Z79.899 Other long term (current) drug therapy
CPT/HCPCS: 36415; 51702; 71045; 74177; 80048; 80053; 81003; 81015; 82805; 83605; 83735; 83880; 84145; 84484; 85025; 87040; 87077; 87086; 87149; 87186; 87804; 94640; 94664; 96361; 96365; 96374; 96375; J0696; J2543; J2930; J3370; J3475; J7050; J7620

== ENCOUNTER 2018-07-27 11:40 | Emergency (ER) | payer MEDICARE, OTHER ==
[2018-07-27 12:11] LABS: Base Excess-Venous 0.3 mmol/L (-2.0 to 3.0); Bicarbonate (HCO3v) 25.8 mmol/L (22.0-28.0); Calcium, Ionized 1.15 mmol/L (See Comments:); Chloride 104 mmol/L (98-107); Hemoglobin - Calc 12.2 g/dL (12.0-16.0); O2 Tension (PvO2) 53.9 mmHg (35.0-45.0); Potassium 3.2 mmol/L (3.5-5.1); Sodium 139 mmol/L (138-145); T. Carbon Dioxide 27.2 mmol/L (22.0-28.0); pH (Venous) 7.376 (7.320-7.430); vO2 Saturation-calc 86.6 % (60.0-85.0)
--- NOTE | 2018-07-27 12:16 | RAD ---
PORTABLE CHEST 1 VIEW: DATE: 07/27/2018. TIME: 12:05 p.m. HISTORY: Dyspnea. FINDINGS: Comparison is made with the exam of 07/13/2018. The heart size is normal. The aorta is tortuous. The lungs are expanded without focal areas of cons olidation, pneumothoraces, or pleural effusions. IMPRESSION: No radiographic evidence of acute cardiopulmonary process. POS: [facility]
[2018-07-27 12:18] LABS: #Basophils 0.1 thou/uL (0.0-0.2); #Eosinphils 0.1 thou/uL (0.0-0.7); #Lymphocytes 3.1 thou/uL (1.20-3.40); #Monocytes 0.7 thou/uL (0.11-0.59); #Neutrophils 6.1 thou/uL (1.40-6.50); %Basophils 0.7 % (0.0-1.0); %Eosinophils 1.2 % (0.0-10.0); %Lymphocytes 30.7 % (21.0-51.0); %Monocytes 6.6 % (0.0-10.0); %Neutrophils 60.8 % (42.0-75.0); Hemoglobin 11.5 g/dL (12.0-16.0); Mean Corpuscular HGB CONC 32.8 g/dL (32.0-36.0); Mean Corpuscular Hemoglobin 30.1 pg (27.0-31.0); Mean Corpuscular Volume 91.9 fL (78.0-98.0); Mean Platelet Volume 6.5 fL (7.4-10.4); Platelet Count 276 thou/uL (130-400); RBC Distribution Width 14.7 % (11.5-14.5); Red Blood Cell (RBC) Count 3.84 mill/uL (4.20-5.40)
[2018-07-27 12:42] LABS: ALT (SGPT) 10 U/L (8-55); AST (SGOT) 9 U/L (5-34); Albumin 3.5 g/dL (3.4-4.8); Alkaline Phosphatase 179 U/L (40-150); Anion Gap 10 mmol/L (10-20); BUN (Urea Nitrogen) 7 mg/dL (9.8-20.1); Bilirubin, Total 0.3 mg/dL (0.2-1.2); Calc. Creatinine Clearance 0 mL/min (70-130); Calcium 8.7 mg/dL (7.8-10.44); Carbon Dioxide 28 mmol/L (23-31); Chloride 103 mmol/L (98-107); Estimated GFR-MDRD 79; Globulin 2.6 g/dL (2.4-3.5); Glucose 100 mg/dL (80-115); Potassium 3.4 mmol/L (3.5-5.1); Protein, Total 6.1 g/dL (6.0-8.3); Sodium 138 mmol/L (136-145)
--- NOTE | 2018-07-27 13:24 | ULT ---
Exam: Right lower extremity venous ultrasound with Doppler HISTORY: Right lower extremity pain. Edema. COMPARISON: None TECHNIQUE: Grayscale, color flow, Doppler imaging and spectral waveform is performed of the right low er extremity venous system FINDINGS: In the popliteal fossa, there is a complex mixed echotexture focus with evidence of septation. A comp kalpana Nuñez's cyst is suspected, measuring 2.5 x 5.3 x 2.6 cm. There is compressibility, presence of flow and augmentation the common femoral vein, femoral vein and popliteal vein. There is flow in the greater saphenous vein, profunda vein. There is flow in the posterior tibial vein IMPRESSION: 1. No evidence of thrombus in the right lower extremity deep venous system. 2. Complex echotexture focus in the popliteal fossa. Findings may represent complex Nuñez cyst. Howev er, confirmation with nonemergent MRI is recommended.
== END 2018-07-27 14:30 | disposition home or self-care (01) ==
LOC: ERS 11:40
DX: J44.1 Chronic obstructive pulmonary disease with (acute) exacerbation (principal); M71.21 Synovial cyst of popliteal space [Baker], right knee; K21.9 Gastro-esophageal reflux disease without esophagitis; I10 Essential (primary) hypertension; F41.9 Anxiety disorder, unspecified; F31.9 Bipolar disorder, unspecified; F20.9 Schizophrenia, unspecified; Z87.01 Personal history of pneumonia (recurrent); Z79.899 Other long term (current) drug therapy; Z79.84 Long term (current) use of oral hypoglycemic drugs; Z79.1 Long term (current) use of non-steroidal anti-inflammatories (NSAID)
CPT/HCPCS: 36415; 71045; 80053; 82330; 82803; 84484; 85025; 93005; 94640; J7620

== ENCOUNTER 2018-11-16 14:02 | Emergency (ER) | payer MEDICARE, OTHER ==
[2018-11-16 16:00] LABS: Bilirubin Negative (Negative); Blood, Urine Negative (Negative); Clarity Clear (Clear); Glucose, Urine (Dipstick) Normal (Negative); Leukocyte Negative Leu/uL (Negative); Nitrite Negative (Negative); Protein, Urine (Dipstick) Negative (Neg-Trace); Urobilinogen Normal mg/dL (Less than 2)
== END 2018-11-16 16:24 | disposition home or self-care (01) ==
LOC: ERS 14:02
DX: R30.0 Dysuria (principal); I10 Essential (primary) hypertension; E11.9 Type 2 diabetes mellitus without complications; J44.9 Chronic obstructive pulmonary disease, unspecified; K21.9 Gastro-esophageal reflux disease without esophagitis; F41.9 Anxiety disorder, unspecified; F31.9 Bipolar disorder, unspecified; F20.9 Schizophrenia, unspecified; F17.210 Nicotine dependence, cigarettes, uncomplicated; Z79.899 Other long term (current) drug therapy; Z79.84 Long term (current) use of oral hypoglycemic drugs
CPT/HCPCS: 51701; 81003; 87086; A4353

== ENCOUNTER 2018-11-18 16:47 | Inpatient (IN) | payer MEDICARE, MEDICAID ==
[2018-11-18 17:40] LABS: #Basophils 0.1 thou/uL (0.0-0.2); #Eosinphils 0.1 thou/uL (0.0-0.7); #Lymphocytes 2.5 thou/uL (1.20-3.40); #Monocytes 0.6 thou/uL (0.11-0.59); %Basophils 0.6 % (0.0-1.0); %Lymphocytes 29.7 % (21.0-51.0); %Monocytes 7.7 % (0.0-10.0); Hemoglobin 12.3 g/dL (12.0-16.0); Mean Corpuscular HGB CONC 33.8 g/dL (32.0-36.0); Mean Corpuscular Hemoglobin 30.5 pg (27.0-31.0); Mean Corpuscular Volume 90.3 fL (78.0-98.0); Mean Platelet Volume 6.3 fL (7.4-10.4); Platelet Count 348 thou/uL (130-400); RBC Distribution Width 14.9 % (11.5-14.5); Red Blood Cell (RBC) Count 4.04 mill/uL (4.20-5.40); White Blood Cell (WBC) Count 8.2 thou/uL (4.8-10.8)
--- NOTE | 2018-11-18 17:53 | RAD ---
CHEST ONE VIEW: Comparison: 07-27-18 History: Cough. FINDINGS: Normal cardiac silhouette. Slight elongation of the aorta. The pulmonary vessels and hilum are normal . Costophrenic angles are clear. No masses or consolidation. No pneumothorax or osseous abnormality. IMPRESSION: No acute cardiopulmonary process. POS: [facility]
[2018-11-18 18:02] LABS: ALT (SGPT) 26 U/L (8-55); AST (SGOT) 17 U/L (5-34); Albumin 3.9 g/dL (3.4-4.8); Alkaline Phosphatase 225 U/L (40-150); Anion Gap 13 mmol/L (10-20); BUN (Urea Nitrogen) 6 mg/dL (9.8-20.1); Bilirubin, Total 0.3 mg/dL (0.2-1.2); Calc. Creatinine Clearance 0 mL/min (70-130); Calcium 9.7 mg/dL (7.8-10.44); Carbon Dioxide 24 mmol/L (23-31); Chloride 88 mmol/L (98-107); Estimated GFR-MDRD Greater than 90; Globulin 2.6 g/dL (2.4-3.5); Glucose 104 mg/dL (80-115); Lipase 9 U/L (8-78); Magnesium 1.5 mg/dL (1.6-2.6); Potassium 3.5 mmol/L (3.5-5.1); Protein, Total 6.5 g/dL (6.0-8.3); Sodium 121 mmol/L (136-145)
[2018-11-18 22:26] VITALS: BMI 20.5
--- NOTE | 2018-11-18 23:33 | PDOC.FPRHP ---
- History of Present Illness Chief Complaint: Weakness History of Present Illness: Mrs. Baldwin is a 68 y/o female with a history of COPD, HFpEF, Bipolar Disorder, Schizoaffective Disorder, hypothyroidism, chronic transaminitis, who presents to the ED following a several day history of weakness. The patient states that she has had a greatly decreased PO intake due to poor dentition and lack of available nutrition, and eats mostly grilled cheese sandwiches. The patient also states that she drinks very little water, and most of her PO hydration consists of soda. She complains of one episode of nausea, but denies any vomiting or diarrhea. She also denies any chest pain, shortness of breath, fevers, chills or night sweats. ED Course: Mrs. Baldwin's laboratory results revealed an Na of 121, Cl of 88, Mg of 1.5, and no Anion Gap. CXR revealed no acute cardiopulmonary processes. - Allergies/Adverse Reactions Allergies Allergy/AdvReac Type Severity Reaction Status Date / Time alprazolam [From Xanax] Allergy Verified 11/18/18 22:44 buprenorphine Allergy Verified 11/18/18 22:44 divalproex sodium Allergy Verified 11/18/18 22:44 [From Depakote] ranitidine Allergy Verified 11/18/18 22:44 sertraline HCl [From Zoloft] Allergy Verified 11/18/18 22:44 trazodone Allergy Verified 11/18/18 22:44 varenicline tartrate Allergy Verified 11/18/18 22:44 [From Chantix] - Home Medications Medication Instructions Recorded Confirmed Type Folic Acid 1 mg PO DAILY 03/20/15 11/18/18 History Omeprazole 40 mg PO DAILY 09/24/16 11/18/18 History Ziprasidone HCl 80 mg PO BID 05/30/17 11/18/18 History Atorvastatin Calcium [Lipitor] 10 mg PO HS 03/29/18 11/18/18 History Levothyroxine Sodium [Synthroid] 137 mcg PO DAILY 03/30/18 11/18/18 History Mometasone/Formoterol [Dulera 200 2 inh INH BID 07/14/18 11/18/18 History mcg/5 mcg Inhaler] PARoxetine HCl [Paroxetine HCl] 10 mg PO QAM 07/14/18 11/18/18 History Tiotropium [place] [Spiriva] 2 inh INH QAM 07/14/18 11/18/18 History metFORMIN HCl [Metformin ER 500 mg PO QAM 07/14/18 11/18/18 History Gastric] Hydrochlorothiazide 12.5 mg PO DAILY #30 tab 07/17/18 11/18/18 Rx - History PMHx: COPD, HFpEF, Bipolar Disorder, Schizoaffective Disorder, Hypothyroidism, OA and GERD. PSHx: Unspecified Left Knee Surgery FHx: Unable to Obtain Social: Tobacco Abuse (1 PPD), denies EtOH and Drug Abuse. - Review of Systems General: reports: weight/appetite/sleep changes (Patient admits to losing weight because she is unable to eat.), fatigue. denies: fever/chills, night sweats Eyes: denies: vision changes ENT: denies: nasal congestion, rhinorrhea Respiratory: reports: cough, exercise intolerance. denies: shortness of breath Cardiovascular: denies: chest pain, edema Gastrointestinal: reports: nausea. denies: vomiting, diarrhea, abdominal pain Genitourinary: denies: dysuria Skin: denies: rashes Musculoskeletal: denies: swelling Neurological: reports: weakness - Vital signs BP: [135/89] HR: [85] RR: [33] Tmax: [] Pox: [94]% on [Room] Wt: [] - Physical Exam Constitutional: other (Patient appeared malnourished and disheveled, and had to be repeatedly woken up via sternal rub.) HEENT: normocephalic and atraumatic, PERRLA, conjunctiva clear, no scleral icterus, grossly normal vision, other (Extremely poor dentition and halitosis, with only 2 adult teeth remaining.) Neck: FROM, trachea midline, no LAD Chest: no-tender to palpation, no lesions Heart: RRR, normal S1/S2, no murmurs/rubs/gallops, pulses present Lungs: no respiratory distress, no rales/rhonchi, no wheezing, no retractions Abdomen: soft, non-tender, bowel sounds present, no masses/distention Musculoskeletal: ROM grossly normal Neurological: no focal deficit Skin: no rash/lesions, good turgor Heme/Lymphatic: no unusual bruising or bleeding, no purpura, no petechia Psychiatric: other (Mildly disoriented) FMR H&P: Results - Labs Result Diagrams: 11/18/18 17:31 11/18/18 17:31 Lab results: WBC 8.2 thou/uL (4.8-10.8) 11/18/18 17:31 Hgb 12.3 g/dL (12.0-16.0) 11/18/18 17:31 Hct 36.5 % (36.0-47.0) 11/18/18 17:31 MCV 90.3 fL (78.0-98.0) 11/18/18 17:31 Plt Count 348 thou/uL (130-400) 11/18/18 17:31 Neutrophils % 61.0 % (42.0-75.0) 11/18/18 17:31 Sodium 121 mmol/L (136-145) L 11/18/18 17:31 Potassium 3.5 mmol/L (3.5-5.1) 11/18/18 17:31 Chloride 88 mmol/L (98-107) L 11/18/18 17:31 Carbon Dioxide 24 mmol/L (23-31) 11/18/18 17:31 BUN 6 mg/dL (9.8-20.1) L 11/18/18 17:31 Creatinine 0.64 mg/dL (0.6-1.1) 11/18/18 17:31 Glucose 104 mg/dL (80-115) 11/18/18 17:31 Calcium 9.7 mg/dL (7.8-10.44) 11/18/18 17:31 Total Bilirubin 0.3 mg/dL (0.2-1.2) 11/18/18 17:31 AST 17 U/L (5-34) 11/18/18 17:31 ALT 26 U/L (8-55) 11/18/18 17:31 Alkaline Phosphatase 225 U/L (40-150) H 11/18/18 17:31 Serum Total Protein 6.5 g/dL (6.0-8.3) 11/18/18 17:31 Albumin 3.9 g/dL (3.4-4.8) 11/18/18 17:31 Lipase 9 U/L (8-78) 11/18/18 17:31 - EKG Interpretation EKG: NSR - Radiology Interpretation Chest x-ray Status: report reviewed by me (JOSELYN) FMR H&P: A/P - Problem List (1) Weakness Current Visit: Yes Status: Acute Code(s): R53.1 - WEAKNESS (2) COPD (chronic obstructive pulmonary disease) Current Visit: No Status: Acute (3) Hypertension Current Visit: No Status: Acute Code(s): I10 - ESSENTIAL (PRIMARY) HYPERTENSION (4) Hyponatremia Current Visit: No Status: Acute Code(s): E87.1 - HYPO-OSMOLALITY AND HYPONATREMIA - Plan 1. 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 Hyponatremia -Patient admits to drinking minimal water, preferring instead to drink sodas -Patient denies recent history of trauma, polyuria, dysuria -Patient admits to sporadic medication compliance, Medication-induced SIADH Syndrome unlikely -Serum Na: 121 -Serum Osm: 250 -Urine Na: 36 (Equivocal) 3. COPD -Well-controlled -Continue home medication regimen -Consider DuoNeb treatment and Mg infusion if exacerbation occurs 4. HTN -Well-controlled -Continue home medication regimen -Hydralazine 5 mg PO Q4H PRN if SBP > 180 Dispo: Admit to Telemetry for further evaluation of fluid and electrolyte status. Consider [place] Syndrome, secondary to poor socioeconomic status and multiple comorbidities. NPO with serial CMPs necessary. Expected LOS > 48H FMR H&P: Upper Level - Pertinent history 68 yo female seen for evaluation of hyponatremia. Patient reports poor PO solid food intake due to poor dentition. Patient reports she drinks soda all day long. She reports a nonspecific of ill feeling over the last week. She notes that she is unable to afford good food and that her mouth hurts often. Please see internet cafe manager note above for further information. General: thin female, NAD HEENT: Moist mucous membranes. Very poor dentition CV: RRR, no murmurs Respiratory: CTA-bilaterally, no wheezing Abdomen: Soft, non-tender, normoactive BS Extremities: Moving all four symmetrically, no edema Neuro: No focal deficits Psych: A&O x3 - Plan Date/Time: 11/18/18 4614 IRakan MD, have evaluated this patient and agree with findings/ plan as outlined by internet cafe manager resident. Pertinent changes/additions are listed here. Hyponatremia -Serum Osm 250 -Will order urine studies -s/p 500 ml bolus NS -Plan to recheck Na Hypmagnesemia -Replete and recheck Please see internet cafe manager note above for information regarding chronic medical conditions PCP: TAMP CODE STATUS: FULL CODE Disposition: Stable, will admit to Telemetry for further monitoring.
[2018-11-19 00:54] LABS: ALT (SGPT) 21 U/L (8-55); AST (SGOT) 13 U/L (5-34); Albumin 3.4 g/dL (3.4-4.8); Alkaline Phosphatase 184 U/L (40-150); Anion Gap 10 mmol/L (10-20); BUN (Urea Nitrogen) 6 mg/dL (9.8-20.1); Bilirubin, Total 0.3 mg/dL (0.2-1.2); Calc. Creatinine Clearance 59 mL/min (70-130); Carbon Dioxide 25 mmol/L (23-31); Chloride 92 mmol/L (98-107); Estimated GFR-MDRD 84; Globulin 2.5 g/dL (2.4-3.5); Glucose 82 mg/dL (80-115); Potassium 3.1 mmol/L (3.5-5.1); Protein, Total 5.9 g/dL (6.0-8.3); Sodium 124 mmol/L (136-145)
[2018-11-19] MEDS ORDERED: Sodium Chloride 0.9% 500 ML IV SCH (01:00)
[2018-11-19] MEDS ORDERED: Potassium Chloride 20 MEQ TAB PO SCH (01:45)
[2018-11-19] MEDS ORDERED: Ipratropium Bromide 2.5 ml Neb ONE (02:53)
[2018-11-19] MEDS: Ipratropium Bromide 2.5 ml Neb NEB SCH ×4 (02:54→18:36)
[2018-11-19 05:31] LABS: #Basophils 0.1 thou/uL (0.0-0.2); #Eosinphils 0.2 thou/uL (0.0-0.7); #Lymphocytes 2.3 thou/uL (1.20-3.40); #Monocytes 0.7 thou/uL (0.11-0.59); %Basophils 0.9 % (0.0-1.0); %Eosinophils 2.5 % (0.0-10.0); %Lymphocytes 31.7 % (21.0-51.0); %Monocytes 9.8 % (0.0-10.0); %Neutrophils 55.1 % (42.0-75.0); Mean Corpuscular HGB CONC 33.7 g/dL (32.0-36.0); Mean Corpuscular Hemoglobin 31.2 pg (27.0-31.0); Mean Corpuscular Volume 92.5 fL (78.0-98.0); Mean Platelet Volume 6.5 fL (7.4-10.4); Platelet Count 291 thou/uL (130-400); RBC Distribution Width 14.6 % (11.5-14.5); Red Blood Cell (RBC) Count 3.86 mill/uL (4.20-5.40); White Blood Cell (WBC) Count 7.2 thou/uL (4.8-10.8)
[2018-11-19 05:53] LABS: ALT (SGPT) 21 U/L (8-55); AST (SGOT) 15 U/L (5-34); Albumin 3.5 g/dL (3.4-4.8); Alkaline Phosphatase 194 U/L (40-150); Anion Gap 9 mmol/L (10-20); BUN (Urea Nitrogen) 7 mg/dL (9.8-20.1); Bilirubin, Total 0.4 mg/dL (0.2-1.2); Calc. Creatinine Clearance 53 mL/min (70-130); Calcium 9.2 mg/dL (7.8-10.44); Carbon Dioxide 27 mmol/L (23-31); Chloride 93 mmol/L (98-107); Estimated GFR-MDRD 74; Globulin 2.7 g/dL (2.4-3.5); Glucose 80 mg/dL (80-115); Potassium 3.7 mmol/L (3.5-5.1); Protein, Total 6.2 g/dL (6.0-8.3); Sodium 125 mmol/L (136-145)
[2018-11-19] MEDS: Levothyroxine Sodium 112 MCG TAB PO SCH (06:15)
[2018-11-19] MEDS: Levothyroxine Sodium 25 MCG TAB PO SCH (06:15)
--- NOTE | 2018-11-19 06:29 | PDOC.FM ---
- Subjective Subjective: Ms. Baldwin wants to eat breakfast this morning. She has had some loose BMs overnight. Has higginbotham in place. - Objective Vital Signs & Weight: Vital Signs (12 hours) Temp Pulse Resp BP Pulse Ox 11/19/18 04:30 97.6 F 71 16 99/65 98 11/19/18 03:30 98 11/19/18 02:54 75 16 11/19/18 01:05 98.2 F 65 16 91/53 L 95 11/19/18 00:25 97.9 F 67 16 70/50 L 94 L 11/18/18 22:07 88 L 11/18/18 21:45 97.9 F 78 16 107/69 96 Weight Weight 49.3 kg I&O: 11/17/18 11/18/18 11/19/18 06:59 06:59 06:59 Intake Total 660 Output Total 1850 Balance -1190 Result Diagrams: 11/19/18 05:00 11/19/18 05:00 Phys Exam - Physical Examination Constitutional: NAD (thin) Respiratory: clear to auscultation bilateral Cardiovascular: RRR Gastrointestinal: soft, non-tender, positive bowel sounds Musculoskeletal: no edema Neurological: non-focal Skin: normal turgor, cap refill <2 seconds Dx/Plan (1) Weakness Code(s): R53.1 - WEAKNESS Status: Acute (2) COPD (chronic obstructive pulmonary disease) Status: Acute (3) Hypertension Code(s): I10 - ESSENTIAL (PRIMARY) HYPERTENSION Status: Acute (4) Gastroesophageal reflux disease Code(s): K21.9 - GASTRO-ESOPHAGEAL REFLUX DISEASE WITHOUT ESOPHAGITIS Status: Chronic (5) Hypothyroidism Code(s): E03.9 - HYPOTHYROIDISM, UNSPECIFIED Status: Chronic (6) Schizoaffective disorder Code(s): F25.9 - SCHIZOAFFECTIVE DISORDER, UNSPECIFIED Status: Chronic Qualifiers: Schizoaffective disorder type: bipolar Qualified Code(s): F25.0 - Schizoaffective disorder, bipolar type - Plan Plan: Hyponatremia, improving - difficult to know etiology as urine studies completed after already getting some fluid rescucitation - possibly 2/2 poor diet vs hypovolemic hyponatremia. Review of mediciations does not seem like likely source - recheck CMP this evening Weakness, likely secondary to poor PO intake -Patient admits to poor PO intake secondary to poor dentition and lack of available resources -Patient appeared frail and disheveled during examination, missing multiple teeth COPD -Well-controlled -Continue home medication regimen HTN -Well-controlled -Continue home medication regimen -Hydralazine 5 mg PO Q4H PRN if SBP > 180 Hypothyroidism - TSH low, will need to adjust home synthroid dose Dispo: Continue serial CMPs. Consult CM for food insecurity. Voiding trial today to d/c anahy. Addendum - Attending - Attending Attestation Date/Time: 11/19/18 2541 I personally evaluated the patient and discussed the management with Dr. Andersen I agree with the History, Examination, Assessment and Plan documented above with any addition or exceptions noted below - Patient without complaints. Denies any N/V. Tolerated regular diet this morning. States that diarrhea has improved. Afebrile. VSS. A/P: 1) Hyponatremia- improving; suspect multifactorial causes including poor water intake and diet. 2) Hypothyroidism - TSH supressed; will adjust home dose. 3) COPD- stable
[2018-11-19] MEDS: Mometasone/Formoterol 120 PUFF INHALER INH SCH ×2 (06:40→18:46)
[2018-11-19] MEDS: Folic Acid 1 MG TAB PO SCH (08:33)
[2018-11-19 17:55] LABS: Anion Gap 12 mmol/L (10-20); BUN (Urea Nitrogen) 9 mg/dL (9.8-20.1); Calc. Creatinine Clearance 57 mL/min (70-130); Calcium 9.6 mg/dL (7.8-10.44); Carbon Dioxide 23 mmol/L (23-31); Chloride 97 mmol/L (98-107); Estimated GFR-MDRD 81; Glucose 101 mg/dL (80-115); Potassium 3.7 mmol/L (3.5-5.1); Sodium 128 mmol/L (136-145)
[2018-11-19] MEDS ORDERED: Atorvastatin Calcium 10 MG TAB PO SCH (21:00)
[2018-11-20] MEDS: Ipratropium Bromide 2.5 ml Neb NEB SCH ×3 (00:10→12:38)
[2018-11-20 04:53] LABS: Anion Gap 12 mmol/L (10-20); BUN (Urea Nitrogen) 9 mg/dL (9.8-20.1); Calc. Creatinine Clearance 58 mL/min (70-130); Calcium 9.8 mg/dL (7.8-10.44); Carbon Dioxide 26 mmol/L (23-31); Chloride 96 mmol/L (98-107); Estimated GFR-MDRD 83; Glucose 91 mg/dL (80-115); Sodium 130 mmol/L (136-145)
--- NOTE | 2018-11-20 06:12 | PDOC.FM ---
- Subjective Subjective: Ms. Baldwin has no complaints this morning. She has a good appetite and has been tolerating PO intake well. Denies SOB or difficulty breathing. Ambulating to bathroom well. [place] 137[place] synthroid and has been on that dose for months with compliance. - Objective Vital Signs & Weight: Vital Signs (12 hours) Temp Pulse Resp BP BP BP Pulse Ox 11/20/18 04:05 98.1 F 74 18 133/73 114/74 99/65 95 11/20/18 03:30 98.1 F 74 18 133/73 95 11/20/18 00:00 75 16 11/19/18 20:00 98.2 F 90 16 114/74 92 L 11/19/18 18:36 91 16 Weight Admit Weight 49.2 kg Weight 49.3 kg I&O: 11/18/18 11/19/18 11/20/18 06:59 06:59 06:59 Intake Total 660 1800 Output Total 1850 0 Balance -1190 -250 Result Diagrams: 11/19/18 05:00 11/20/18 04:08 Phys Exam - Physical Examination Constitutional: NAD mild expiratory wheeze Cardiovascular: RRR, no significant murmur Gastrointestinal: soft, non-tender, positive bowel sounds Musculoskeletal: no edema Neurological: normal sensation Skin: normal turgor Dx/Plan (1) Weakness Code(s): R53.1 - WEAKNESS Status: Acute (2) COPD (chronic obstructive pulmonary disease) Status: Acute (3) Hypertension Code(s): I10 - ESSENTIAL (PRIMARY) HYPERTENSION Status: Acute (4) Gastroesophageal reflux disease Code(s): K21.9 - GASTRO-ESOPHAGEAL REFLUX DISEASE WITHOUT ESOPHAGITIS Status: Chronic (5) Hypothyroidism Code(s): E03.9 - HYPOTHYROIDISM, UNSPECIFIED Status: Chronic (6) Schizoaffective disorder Code(s): F25.9 - SCHIZOAFFECTIVE DISORDER, UNSPECIFIED Status: Chronic Qualifiers: Schizoaffective disorder type: bipolar Qualified Code(s): F25.0 - Schizoaffective disorder, bipolar type - Plan Plan: Hyponatremia, improving - difficult to know etiology as urine studies completed after already getting some fluid rescucitation - liekly 2/2 poor diet vs hypovolemic hyponatremia. Review of mediciations does not seem like likely source - Recheck Na now 130. Weakness, likely secondary to poor PO intake -Patient admits to poor PO intake secondary to poor dentition and lack of available resources -Patient appeared frail and disheveled during examination, missing multiple teeth COPD -Well-controlled -Continue home medication regimen HTN -Well-controlled -Continue home medication regimen -Hydralazine 5 mg PO Q4H PRN if SBP > 180 Hypothyroidism - TSH low, will decrease dose to 125mcg at time of discharge with outpatient follow up. Dispo: CM consult pending. Otherwise stable for discharge this afternoon. Addendum - Attending - Attending Attestation Date/Time: 11/20/18 0859 I personally evaluated the patient and discussed the management with Dr. Andersen I agree with the History, Examination, Assessment and Plan documented above with any addition or exceptions noted below- patietn without complaints. Tolerating po well. No further N/V/D. Afebrile VSS. A/P: 1) N/V/D- resolved. 2) hyponatremia- improved; plan to d/c home today.
[2018-11-20] MEDS: Mometasone/Formoterol 120 PUFF INHALER INH SCH (06:25)
[2018-11-20] MEDS: Levothyroxine Sodium 25 MCG TAB PO SCH (07:48)
[2018-11-20] MEDS: Levothyroxine Sodium 112 MCG TAB PO SCH (07:48)
[2018-11-20] MEDS: Folic Acid 1 MG TAB PO SCH (09:29)
[2018-11-20 12:01] VITALS: BP 169/84; TEMP 99.4
--- NOTE | 2018-11-21 12:07 | PQF ---
Date: 11-21-18 ATTN : DR. ROSE MAGUIRE Please exercise your independent, professional judgment in responding to the clarification form. Clinical indicators are provided on the bottom of this form for your review Please check appropriate box(s): [ ] Protein Calorie Malnutrition: [ ] Mild [ x ] Moderate [ ] Severe [ ] Other Malnutrition (please specify) __ [ ] Cachexia [ ] Other diagnosis [ ] Unable to determine In addition, please specify: Present on Admission (POA): [x ] Yes [ ] No [ ] Unable to determine CLINICAL INDICATORS - SIGNS / SYMPTOMS / LABS: ER: C/O LACK OF APPETITE, N/V/D, REPORTS THAT SHE HAS NO APPETITE, NO TEETH TO CHEW UP HER FOOD AND NO MONEY TO BUY FOOD, TEETH WITH POOR DENTATION H&P: GREATLY DECREASED PO INTAKE DUE TO POOR DENTATION AND LACK OF AVAILABLE NUTRITION, AND EATS MOSTLY GRILLED CHEESE SANDWICHES. HX OF COPD, HFpEF, BIPOLAR DISORDER, SCHIZOAFFECTIVE DISORDER, PATIENT APPEARED MALNOURISHED AND DISHEVELED, APPEARED FRAIL CIRCUIT COURT JUDGE CONSULT 11-19-18: Weight was measured at 123.8 lbs during a past admit on 07/13. 12% weight loss in 4 months, <50-75% of estimated needs being met per reported diet recall suggestive of moderate malnutrition in the context of environmental circumstances BMI: 20.5 RISK FACTORS: H&P: GREATLY DECREASED PO INTAKE DUE TO POOR DENTATION AND LACK OF AVAILABLE NUTRITION, AND EATS MOSTLY GRILLED CHEESE SANDWICHES. HX OF COPD, HFpEF, BIPOLAR DISORDER, SCHIZOAFFECTIVE DISORDER, PATIENT APPEARED MALNOURISHED AND DISHEVELED, APPEARED FRAIL TREATMENT: DIETARY CONSULT 11-19-18: 1. Continue liberalized Regular diet to promote intake, recommend soft foods. Low Sodium diet would be appropriate shelter 2. Recommend Ensure Enlive BID to aid with intake 3. 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 Moderate Malnutrition (in chronic illness) Energy Intake: <75% of estimated energy requirement for >1 month Weight Loss: 5%/1 month; 7.5%/3 months; 10%/6 months; 20%/1 year Other: mild body fat loss; mild muscle mass loss; mild fluid accumulation Severe Malnutrition (in chronic illness) Energy Intake: <75% of estimated energy requirement for >1 month Weight Loss: >5%/1 month; >7.5%/3 months; >10%/6 months; >20%/1 year Other: severe body fat loss; severe muscle mass loss; severe fluid accumulation ; 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 All Rights Reserved JESUS ALBERTO [email or web address] Office: [phone] MTDD
--- NOTE | 2018-11-21 23:54 | DIS ---
DATE OF ADMISSION: 11/18/2018 DATE OF DISCHARGE: 11/20/2018 ADMITTING ATTENDING: Jorge Roldan MD DISCHARGE ATTENDING: Glory Canela MD CONSULTS: None. PROCEDURE PERFORMED: 11/18/2018, chest x-ray showed no acute cardiopulmonary process. PRIMARY DIAGNOSES: 1. Hyponatremia. 2. Weakness. SECONDARY DIAGNOSES: 1. Chronic obstructive pulmonary disease. 2. Hypertension. 3. Hypothyroidism. DISCHARGE MEDICATIONS: 1. Levothyroxine 125 mcg p.o. daily. 2. Gabapentin 100 mg p.o. b.i.d. 3. Hydrochlorothiazide 12.5 mg p.o. daily. 4. Dulera two inhalations b.i.d. 5. Tiotropium bromide Spiriva 2 inhalations q.a.m. 6. Metformin extended release 500 mg p.o. q.a.m. 7. Paroxetine 10 mg p.o. q.a.m. 8. Atorvastatin 10 mg p.o. at bedtime. 9. Ziprasidone 80 mg p.o. b.i.d. 10. Omeprazole 40 mg p.o. daily. 11. Folic acid 1 mg p.o. daily. DISCONTINUED MEDICATIONS: Levothyroxine 137 mcg p.o. daily. HISTORY OF PRESENT ILLNESS: A 68-year-old female presented to the emergency department following a several-day history of weakness and decreased p.o. intake. The patient notes decreased intake due to poor dentition and lack of available food. She noted that she had been eating mostly grilled cheese sandwiches and drinks very little water. She said most of her hydration comes from soda. The patient was found to have a sodium of 121. Urine studies were completed, but were done after initial fluid resuscitation was given, so results are highly inconclusive. It appears hyponatremia is likely secondary to poor nutrition as well as hypovolemic hyponatremia process. The patient was started on a regular diet and her sodium gradually improved. Sodium had increased to 130 at the time of discharge. The patient was asymptomatic, her weakness had improved and she felt back to baseline. Her chronic medical problems were controlled. She was given resources by Case Management on available food pantry resources prior to discharge. DISPOSITION: Stable. DISCHARGE INSTRUCTIONS: 1. Location: Home. 2. Diet: Regular. 3. Activity: As tolerated. 4. Followup: Followup with primary care physician, Dr. Esposito, at [facility] within 3 days. Job ID: [id number] MTDD
== END 2018-11-20 14:27 | disposition home or self-care (01) | DRG 641 ==
LOC: ERS 16:47 → 2NO 19:25
PROVIDERS: ADMIT Family Medicine; ATTEND Family Medicine
DX: E87.1 Hypo-osmolality and hyponatremia (principal); I50.32 Chronic diastolic (congestive) heart failure; E44.0 Moderate protein-calorie malnutrition; J44.9 Chronic obstructive pulmonary disease, unspecified; I11.0 Hypertensive heart disease with heart failure; F31.9 Bipolar disorder, unspecified; F25.9 Schizoaffective disorder, unspecified; E03.9 Hypothyroidism, unspecified; R74.0 Nonspecific elevation of levels of transaminase and lactic acid dehydrogenase [LDH]; K21.9 Gastro-esophageal reflux disease without esophagitis; M19.90 Unspecified osteoarthritis, unspecified site; E83.42 Hypomagnesemia; F17.210 Nicotine dependence, cigarettes, uncomplicated; Z88.8 Allergy status to other drugs, medicaments and biological substances; Z68.20 Body mass index [BMI] 20.0-20.9, adult
CPT/HCPCS: 36415; 36416; 51701; 71045; 80048; 80053; 81003; 83690; 83735; 83930; 83935; 84300; 84443; 84484; 85025; 87086; 87324; 87449; 93005; 94640; 96360; A4353; J7620

== ENCOUNTER 2018-11-21 11:42 | Inpatient (IN) | payer MEDICARE, MEDICAID ==
[2018-11-21 12:30] LABS: #Basophils 0.1 thou/uL (0.0-0.2); #Eosinphils 0.1 thou/uL (0.0-0.7); #Lymphocytes 1.7 thou/uL (1.20-3.40); #Monocytes 0.5 thou/uL (0.11-0.59); #Neutrophils 4.6 thou/uL (1.40-6.50); %Basophils 1.2 % (0.0-1.0); %Eosinophils 0.8 % (0.0-10.0); %Lymphocytes 24.5 % (21.0-51.0); %Monocytes 6.5 % (0.0-10.0); Hemoglobin 13.4 g/dL (12.0-16.0); Mean Corpuscular HGB CONC 33.8 g/dL (32.0-36.0); Mean Corpuscular Hemoglobin 30.7 pg (27.0-31.0); Mean Corpuscular Volume 90.9 fL (78.0-98.0); Mean Platelet Volume 6.6 fL (7.4-10.4); Platelet Count 310 thou/uL (130-400); RBC Distribution Width 14.8 % (11.5-14.5); Red Blood Cell (RBC) Count 4.36 mill/uL (4.20-5.40); White Blood Cell (WBC) Count 6.9 thou/uL (4.8-10.8)
[2018-11-21 12:51] LABS: ALT (SGPT) 25 U/L (8-55); AST (SGOT) 21 U/L (5-34); Albumin 4.3 g/dL (3.4-4.8); Alkaline Phosphatase 237 U/L (40-150); Anion Gap 13 mmol/L (10-20); BUN (Urea Nitrogen) 5 mg/dL (9.8-20.1); Bilirubin, Total 0.3 mg/dL (0.2-1.2); Calc. Creatinine Clearance 0 mL/min (70-130); Carbon Dioxide 23 mmol/L (23-31); Chloride 92 mmol/L (98-107); Estimated GFR-MDRD 83; Globulin 3.5 g/dL (2.4-3.5); Glucose 136 mg/dL (80-115); Potassium 3.2 mmol/L (3.5-5.1); Protein, Total 7.8 g/dL (6.0-8.3); Sodium 125 mmol/L (136-145)
--- NOTE | 2018-11-21 13:51 | PDOC.FPRHP ---
- History of Present Illness Chief Complaint: Weakness History of Present Illness: Mrs. Baldwin is a 68 y/o female with a history of COPD, HFpEF, Bipolar Disorder, Schizoaffective Disorder, hypothyroidism, chronic transaminitis, who presents to the ED with daughter in law for weakness and hyponatremia. She was discharged earlier this week, went to live again with Ct, the daughter of one of her friends. Has lived there a couple weeks. She has not eaten much at all. Says she has access to food but does not feel like cooking. Ate some oatmeal. Drinks water and soda. She denies any chest pain, shortness of breath, fevers, nausea. Reports 2 episodes watery/loose BMs over the past day. - Allergies/Adverse Reactions Allergies Allergy/AdvReac Type Severity Reaction Status Date / Time alprazolam [From Xanax] Allergy Verified 11/21/18 15:49 buprenorphine Allergy Verified 11/21/18 15:49 divalproex sodium Allergy Verified 11/21/18 15:49 [From Depakote] ranitidine Allergy Verified 11/21/18 15:49 sertraline HCl [From Zoloft] Allergy Verified 11/21/18 15:49 trazodone Allergy Verified 11/21/18 15:49 varenicline tartrate Allergy Verified 11/21/18 15:49 [From Chantix] - Home Medications Medication Instructions Recorded Confirmed Type Folic Acid 1 mg PO DAILY 03/20/15 11/21/18 History Omeprazole 40 mg PO DAILY 09/24/16 11/21/18 History Ziprasidone HCl 80 mg PO BID 05/30/17 11/21/18 History Atorvastatin Calcium [Lipitor] 10 mg PO HS 03/29/18 11/21/18 History Mometasone/Formoterol [Dulera 200 2 inh INH BID 07/14/18 11/21/18 History mcg/5 mcg Inhaler] PARoxetine HCl [Paroxetine HCl] 10 mg PO QAM 07/14/18 11/21/18 History Tiotropium [place] [Spiriva] 2 inh INH QAM 07/14/18 11/21/18 History metFORMIN HCl [Metformin ER 500 mg PO QAM 07/14/18 11/21/18 History Gastric] Hydrochlorothiazide 12.5 mg PO DAILY #30 tab 07/17/18 11/21/18 Rx Gabapentin [Neurontin] 100 mg PO BID 11/19/18 11/21/18 History Levothyroxine Sodium [Synthroid] 125 mcg PO DAILY #30 tablet 11/20/18 11/21/18 Rx - History PMHx: COPD, HFpEF, Bipolar Disorder, Schizoaffective Disorder, Hypothyroidism, OA and GERD. PSHx: Unspecified Left Knee Surgery FHx: Heart disease in multiple family members, son [place] at age 39, sister with cancer Social: Tobacco Abuse (1 PPD, though has been cutting back), denies EtOH and Drug Abuse. - Review of Systems General: reports: fatigue. denies: fever/chills Respiratory: denies: cough, shortness of breath Cardiovascular: denies: chest pain, edema Gastrointestinal: reports: diarrhea. denies: nausea, vomiting, abdominal pain Genitourinary: denies: incontinence, dysuria Skin: denies: rashes, lesions Musculoskeletal: denies: pain, tenderness Neurological: reports: weakness. denies: numbness - Vital signs BP: 161/91 HR: 70 RR: 18 Tmax: 97.8 Pox: 97% on RA Wt: 47 kg - Physical Exam Constitutional: NAD (thin) HEENT: normocephalic and atraumatic, MMM, oropharynx clear, other (very poor dentition) Neck: supple, no thyromegaly Heart: RRR, normal S1/S2, no edema Lungs: no respiratory distress, other (mild diffuse wheeze) Abdomen: soft, non-tender, bowel sounds present Musculoskeletal: ROM grossly normal Neurological: CN II-XII intact (slow speech) Skin: no rash/lesions Heme/Lymphatic: no unusual bruising or bleeding FMR H&P: Results - Labs Result Diagrams: 11/21/18 12:17 11/22/18 05:19 Lab results: WBC 6.9 thou/uL (4.8-10.8) 11/21/18 12:17 Hgb 13.4 g/dL (12.0-16.0) 11/21/18 12:17 Hct 39.6 % (36.0-47.0) 11/21/18 12:17 MCV 90.9 fL (78.0-98.0) 11/21/18 12:17 Plt Count 310 thou/uL (130-400) 11/21/18 12:17 Neutrophils % 67.0 % (42.0-75.0) 11/21/18 12:17 Sodium 125 mmol/L (136-145) L 11/21/18 12:17 Potassium 3.2 mmol/L (3.5-5.1) L 11/21/18 12:17 Chloride 92 mmol/L (98-107) L 11/21/18 12:17 Carbon Dioxide 23 mmol/L (23-31) 11/21/18 12:17 BUN 5 mg/dL (9.8-20.1) L 11/21/18 12:17 Creatinine 0.70 mg/dL (0.6-1.1) 11/21/18 12:17 Glucose 136 mg/dL (80-115) H 11/21/18 12:17 Calcium 10.0 mg/dL (7.8-10.44) 11/21/18 12:17 Total Bilirubin 0.3 mg/dL (0.2-1.2) 11/21/18 12:17 AST 21 U/L (5-34) 11/21/18 12:17 ALT 25 U/L (8-55) 11/21/18 12:17 Alkaline Phosphatase 237 U/L (40-150) H 11/21/18 12:17 Serum Total Protein 7.8 g/dL (6.0-8.3) 11/21/18 12:17 Albumin 4.3 g/dL (3.4-4.8) 11/21/18 12:17 FMR H&P: A/P - Problem List (1) Hyponatremia Current Visit: Yes Status: Acute Code(s): E87.1 - HYPO-OSMOLALITY AND HYPONATREMIA (2) Weakness Current Visit: Yes Status: Acute Code(s): R53.1 - WEAKNESS (3) COPD (chronic obstructive pulmonary disease) Current Visit: Yes Status: Chronic (4) Hypertension Current Visit: Yes Status: Chronic Code(s): I10 - ESSENTIAL (PRIMARY) HYPERTENSION (5) (HFpEF) heart failure with preserved ejection fraction Current Visit: Yes Status: Chronic Code(s): I50.30 - UNSPECIFIED DIASTOLIC ( CONGESTIVE) HEART FAILURE (6) Anemia Current Visit: Yes Status: Chronic Code(s): D64.9 - ANEMIA, UNSPECIFIED (7) Bipolar disorder Current Visit: Yes Status: Chronic Code(s): F31.9 - BIPOLAR DISORDER, UNSPECIFIED (8) Hypothyroidism Current Visit: Yes Status: Chronic Code(s): E03.9 - HYPOTHYROIDISM, UNSPECIFIED (9) Osteoarthritis Current Visit: Yes Status: Chronic Code(s): M19.90 - UNSPECIFIED OSTEOARTHRITIS, UNSPECIFIED SITE (10) Schizoaffective disorder Current Visit: Yes Status: Chronic Code(s): F25.9 - SCHIZOAFFECTIVE DISORDER , UNSPECIFIED Qualifiers: Schizoaffective disorder type: bipolar Qualified Code(s): F25.0 - Schizoaffective disorder, bipolar type (11) Tobacco abuse Current Visit: Yes Status: Chronic Code(s): Z72.0 - TOBACCO USE - Plan Hyponatremia - pending urine studies - give 1L NS initially - will trend with serial BMP to monitor for appropriate rising of Na Weakness, likely secondary to poor PO intake -Patient admits to poor PO intake secondary to poor dentition -Patient appeared frail and disheveled during examination, missing multiple teeth - give multivitamin and supplemental shakes BID as recommended by relay record clerk on previous admission COPD -Continue home inhalers HTN -Continue home medication regimen, will hold HCTZ Hypothyroidism - TSH low at last admission, continue 125mcg. Check free t4 Schizoaffective disorder, bipolar - continue home medications Ppx: Lovenox Dispo: admit to medical floor FMR H&P: Upper Level - Plan Date/Time: 11/21/18 9841 I, [], have evaluated this patient and agree with findings/plan as outlined by compensation intern resident. Pertinent changes/additions are listed here. Addendum - Attending - Attending Attestation Date/Time: 11/22/18 1011 I personally evaluated the patient and discussed the management with Dr. Andersen on 11/21. I agree with the History, Examination, Assessment and Plan documented above with any addition or exceptions noted below. suspect poor PO intake + HCTZ. D/c hctz, provide NS and reeval lights and BMP.
[2018-11-21] MEDS ORDERED: Acetaminophen 325 MG TAB PO PRN (15:43)
[2018-11-21] MEDS ORDERED: Ondansetron ODT 4 MG TAB PO PRN (15:43)
[2018-11-21] MEDS ORDERED: Ondansetron PF 4 MG/2 ML Vial IVP PRN (15:43)
[2018-11-21] MEDS ORDERED: Sodium Chloride 0.9% 1,000 ML IV SCH (15:45)
[2018-11-21 15:58] VITALS: BMI 19.8
[2018-11-21 18:00] LABS: Potassium, Urine Less than 10.0 mmol/L; Sodium, Urine 20 mmol/L (Not Available)
[2018-11-21] MEDS: Mometasone/Formoterol 120 PUFF INHALER INH SCH (18:41)
[2018-11-21] MEDS: Gabapentin 100 MG CAP PO SCH (21:48)
[2018-11-21] MEDS: Atorvastatin Calcium 10 MG TAB PO SCH (21:48)
[2018-11-22 05:46] LABS: Anion Gap 14 mmol/L (10-20); BUN (Urea Nitrogen) 5 mg/dL (9.8-20.1); Calc. Creatinine Clearance 55 mL/min (70-130); Calcium 9.9 mg/dL (7.8-10.44); Carbon Dioxide 20 mmol/L (23-31); Chloride 104 mmol/L (98-107); Estimated GFR-MDRD 80; Glucose 83 mg/dL (80-115); Potassium 3.5 mmol/L (3.5-5.1); Sodium 134 mmol/L (136-145)
--- NOTE | 2018-11-22 06:50 | PDOC.FM ---
- Subjective Subjective: Ms. Baldwin reports she is feeling better and less weak today. She is awaiting breakfast. She is urinating well. Denies SOB. She would be agreeable to going to a nursing facility and mentions [facility]. - Objective Vital Signs & Weight: Vital Signs (12 hours) Temp Pulse Resp BP Pulse Ox 11/22/18 04:14 98.1 F 84 18 163/79 H 90 L 11/22/18 00:32 97.8 F 66 18 121/67 92 L 11/21/18 20:00 92 L 11/21/18 19:27 98.1 F 81 16 118/84 92 L Weight Weight 47.627 kg Result Diagrams: 11/21/18 12:17 11/22/18 05:19 Phys Exam - Physical Examination Constitutional: NAD HEENT: moist MMs (poor dentition) Respiratory: wheezing present (mild diffuse expiratory wheeze) Cardiovascular: RRR, no significant murmur Gastrointestinal: soft, non-tender Musculoskeletal: no edema, pulses present Neurological: moves all 4 limbs Skin: cap refill <2 seconds Dx/Plan (1) Hyponatremia Code(s): E87.1 - HYPO-OSMOLALITY AND HYPONATREMIA Status: Acute (2) Weakness Code(s): R53.1 - WEAKNESS Status: Acute (3) COPD (chronic obstructive pulmonary disease) Status: Chronic (4) Hypertension Code(s): I10 - ESSENTIAL (PRIMARY) HYPERTENSION Status: Chronic (5) (HFpEF) heart failure with preserved ejection fraction Code(s): I50.30 - UNSPECIFIED DIASTOLIC (CONGESTIVE) HEART FAILURE Status: Chronic (6) Anemia Code(s): D64.9 - ANEMIA, UNSPECIFIED Status: Chronic (7) Bipolar disorder Code(s): F31.9 - BIPOLAR DISORDER, UNSPECIFIED Status: Chronic (8) Hypothyroidism Code(s): E03.9 - HYPOTHYROIDISM, UNSPECIFIED Status: Chronic (9) Osteoarthritis Code(s): M19.90 - UNSPECIFIED OSTEOARTHRITIS, UNSPECIFIED SITE Status: Chronic (10) Schizoaffective disorder Code(s): F25.9 - SCHIZOAFFECTIVE DISORDER, UNSPECIFIED Status: Chronic Qualifiers: Schizoaffective disorder type: bipolar Qualified Code(s): F25.0 - Schizoaffective disorder, bipolar type (11) Tobacco abuse Code(s): Z72.0 - TOBACCO USE Status: Chronic - Plan Plan: Hyponatremia - Urine studies obtained prior to receiving 1L NS - likely 2/2 HCTZ use though compliance is questionable vs tea and toast diet. Could likely be combination - Na tacho to 134 this am, will continue regular diet and to monitor Weakness, likely secondary to poor PO intake -Patient admits to poor PO intake secondary to poor dentition - PT, OT consulted Moderate protein calorie malnutrition - give multivitamin and supplemental shakes BID as recommended by director of women's services on previous admission COPD -Continue home inhalers HTN -Continue home medication regimen, will hold HCTZ Hypothyroidism - TSH low at last admission, free T4 1.66, continue 125mcg (was decreased from 137mcg dose last admission) Schizoaffective disorder, bipolar - continue home medications Ppx: Lovenox Dispo: Patient would benefit from placement considering poor social situation. CM to work on this. Addendum - Attending - Attending Attestation Date/Time: 11/22/18 1430 I personally evaluated the patient and discussed the management with Dr. Andersen I agree with the History, Examination, Assessment and Plan documented above with any addition or exceptions noted below - Patient without complaints. Tolerating diet. Afebrile VSS. A/P: 1) hyponatremia- improved; will d/c her HCTZ as this may be contributing. 2) Deconditioning/poor linving situation/ difficulty managing medications- patient interested in NH; will consult case management.
[2018-11-22] MEDS: Levothyroxine Sodium 125 MCG TAB PO SCH (07:09)
[2018-11-22] MEDS: Mometasone/Formoterol 120 PUFF INHALER INH SCH ×2 (08:01→18:36)
[2018-11-22] MEDS: PARoxetine 20 MG TAB PO SCH (08:20)
[2018-11-22] MEDS: Enoxaparin Sodium 40 MG/0.4 ML SYRINGE SC SCH (08:20)
[2018-11-22] MEDS: Multivitamin W/ Minerals 1 TAB PO SCH (08:20)
[2018-11-22] MEDS: Gabapentin 100 MG CAP PO SCH ×2 (08:20→22:03)
[2018-11-22] MEDS: metFORMIN 500 MG TAB PO SCH (08:21)
[2018-11-22 18:11] LABS: Anion Gap 12 mmol/L (10-20); BUN (Urea Nitrogen) 9 mg/dL (9.8-20.1); Calc. Creatinine Clearance 61 mL/min (70-130); Calcium 9.7 mg/dL (7.8-10.44); Carbon Dioxide 25 mmol/L (23-31); Chloride 101 mmol/L (98-107); Estimated GFR-MDRD 90; Glucose 79 mg/dL (80-115); Potassium 3.4 mmol/L (3.5-5.1); Sodium 135 mmol/L (136-145)
[2018-11-22] MEDS: Atorvastatin Calcium 10 MG TAB PO SCH (22:03)
[2018-11-23 05:15] LABS: Anion Gap 13 mmol/L (10-20); BUN (Urea Nitrogen) 10 mg/dL (9.8-20.1); Calc. Creatinine Clearance 56 mL/min (70-130); Calcium 9.5 mg/dL (7.8-10.44); Carbon Dioxide 24 mmol/L (23-31); Chloride 103 mmol/L (98-107); Estimated GFR-MDRD 83; Glucose 83 mg/dL (80-115); Potassium 4.3 mmol/L (3.5-5.1); Sodium 136 mmol/L (136-145)
[2018-11-23] MEDS: Levothyroxine Sodium 125 MCG TAB PO SCH (06:05)
--- NOTE | 2018-11-23 06:42 | PDOC.FM ---
- Subjective Subjective: Ms. Baldwin has no complaints this morning. She is feeling well and notes she has eaten and ambulated well. - Objective Vital Signs & Weight: Vital Signs (12 hours) Temp Pulse Resp BP Pulse Ox 11/22/18 20:00 93 L 11/22/18 19:13 98.2 F 78 16 121/78 93 L Weight Admit Weight 47.627 kg Weight 47.627 kg I&O: 11/21/18 11/22/18 11/23/18 06:59 06:59 06:59 Intake Total 960 Balance 960 Result Diagrams: 11/21/18 12:17 11/23/18 04:27 Phys Exam - Physical Examination Constitutional: NAD HEENT: moist MMs Respiratory: clear to auscultation bilateral Cardiovascular: RRR, no significant murmur Gastrointestinal: soft, non-tender, positive bowel sounds Musculoskeletal: no edema Neurological: non-focal Skin: normal turgor Dx/Plan (1) Hyponatremia Code(s): E87.1 - HYPO-OSMOLALITY AND HYPONATREMIA Status: Acute (2) Weakness Code(s): R53.1 - WEAKNESS Status: Acute (3) COPD (chronic obstructive pulmonary disease) Status: Chronic (4) Hypertension Code(s): I10 - ESSENTIAL (PRIMARY) HYPERTENSION Status: Chronic (5) (HFpEF) heart failure with preserved ejection fraction Code(s): I50.30 - UNSPECIFIED DIASTOLIC (CONGESTIVE) HEART FAILURE Status: Chronic (6) Anemia Code(s): D64.9 - ANEMIA, UNSPECIFIED Status: Chronic (7) Bipolar disorder Code(s): F31.9 - BIPOLAR DISORDER, UNSPECIFIED Status: Chronic (8) Hypothyroidism Code(s): E03.9 - HYPOTHYROIDISM, UNSPECIFIED Status: Chronic (9) Osteoarthritis Code(s): M19.90 - UNSPECIFIED OSTEOARTHRITIS, UNSPECIFIED SITE Status: Chronic (10) Schizoaffective disorder Code(s): F25.9 - SCHIZOAFFECTIVE DISORDER, UNSPECIFIED Status: Chronic Qualifiers: Schizoaffective disorder type: bipolar Qualified Code(s): F25.0 - Schizoaffective disorder, bipolar type (11) Tobacco abuse Code(s): Z72.0 - TOBACCO USE Status: Chronic - Plan Plan: Hyponatremia, resolved - Urine studies obtained prior to receiving 1L NS - likely 2/2 HCTZ use though compliance is questionable vs tea and toast diet, likely a combination - Na 136 this am, will continue regular diet and to monitor Weakness, likely secondary to poor PO intake -Patient admits to poor PO intake secondary to poor dentition - PT, OT consulted Moderate protein calorie malnutrition - give multivitamin and supplemental shakes BID COPD -Continue home inhalers HTN -Continue home medication regimen, will hold HCTZ Hypothyroidism - TSH low at last admission, free T4 1.66, continue 125mcg (was decreased from 137mcg dose last admission) Schizoaffective disorder, bipolar - continue home medications Ppx: Lovenox Dispo: Pending placement Addendum - Attending - Attending Attestation Date/Time: 11/23/18 4419 I personally evaluated the patient and discussed the management with Dr. Andersen I agree with the History, Examination, Assessment and Plan documented above with any addition or exceptions noted below - Patient wihtout complaints. Feeling better. Afebrile VSS. A/P: 1) Hyponatremia- resolved. 2) Deconditioning - awaiting placement.
[2018-11-23] MEDS: Mometasone/Formoterol 120 PUFF INHALER INH SCH ×2 (07:01→18:41)
[2018-11-23] MEDS: PARoxetine 20 MG TAB PO SCH (08:23)
[2018-11-23] MEDS: Enoxaparin Sodium 40 MG/0.4 ML SYRINGE SC SCH (08:23)
[2018-11-23] MEDS: Multivitamin W/ Minerals 1 TAB PO SCH (08:24)
[2018-11-23] MEDS: Gabapentin 100 MG CAP PO SCH ×2 (08:24→21:48)
[2018-11-23] MEDS: metFORMIN 500 MG TAB PO SCH (08:24)
[2018-11-23] MEDS: Atorvastatin Calcium 10 MG TAB PO SCH (21:48)
[2018-11-24 06:07] LABS: Anion Gap 10 mmol/L (10-20); BUN (Urea Nitrogen) 11 mg/dL (9.8-20.1); Calc. Creatinine Clearance 57 mL/min (70-130); Calcium 9.5 mg/dL (7.8-10.44); Carbon Dioxide 27 mmol/L (23-31); Chloride 101 mmol/L (98-107); Estimated GFR-MDRD 84; Glucose 96 mg/dL (80-115); Potassium 4.2 mmol/L (3.5-5.1); Sodium 134 mmol/L (136-145)
--- NOTE | 2018-11-24 06:11 | PDOC.FM ---
- Subjective Subjective: Patient doing well this AM. No acute events overnight. Had back pain overnight, took Tylenol and pain resolved. No concerns otherwise. AxO x3. - Objective MAR Reviewed: Yes Vital Signs & Weight: Vital Signs (12 hours) Temp Pulse Resp BP Pulse Ox 11/23/18 20:00 98.3 F 73 16 143/85 H 95 11/23/18 18:41 76 18 98 Weight Admit Weight 47.627 kg Weight 47.627 kg I&O: 11/22/18 11/23/18 11/24/18 06:59 06:59 06:59 Intake Total 960 960 Balance 960 960 Result Diagrams: 11/21/18 12:17 11/24/18 05:16 Phys Exam - Physical Examination Constitutional: NAD Neck: no nodes (no thyromegaly), supple Respiratory: no rales, no rhonchi, wheezing present (diffuse wheezing) Cardiovascular: RRR, no significant murmur Gastrointestinal: soft, non-tender, no distention, positive bowel sounds Musculoskeletal: no edema, pulses present (Radial 2+, DP 2+) Neurological: non-focal Psychiatric: normal affect, A&O x 3 Skin: no rash Dx/Plan (1) Hyponatremia with decreased serum osmolality Code(s): E87.1 - HYPO-OSMOLALITY AND HYPONATREMIA Status: Acute (2) (HFpEF) heart failure with preserved ejection fraction Code(s): I50.30 - UNSPECIFIED DIASTOLIC (CONGESTIVE) HEART FAILURE Status: Chronic (3) Anemia Code(s): D64.9 - ANEMIA, UNSPECIFIED Status: Chronic (4) Bipolar disorder Code(s): F31.9 - BIPOLAR DISORDER, UNSPECIFIED Status: Chronic (5) COPD (chronic obstructive pulmonary disease) Status: Chronic - Plan Plan: 68-F w/ Hx of HFpEF, COPD, Hypothyroidism, presented for weakness and hyponatremia: 1. Hyponatremia w/ decreased serum osm (calc) - Resolved. D/C'd IVF. Euvolemic on exam today. - Uosm = 64, Usodium = 20, Serum osm calculated at 259. - likely 2/2 HCTZ (renal losses) vs "tea and toast" diet 2. Weakness, likely 2/2 poor PO intake - Patient admits to poor PO intake secondary to poor dentition - PT, OT consulted 3. Moderate protein-calorie malnutrition - give multivitamin and supplemental shakes BID 4. COPD -Continue home inhalers 5. HTN -Continue home medication regimen, will hold HCTZ 6. Hypothyroidism - TSH low at last admission, free T4 1.66, continue 125mcg (decreased from 137mcg dose last admission) 7. Schizoaffective disorder, bipolar - continue home medications 8. T2DM - Continue home meds. Ppx: Lovenox Dispo: Pending placement at [facility]. Otherwise, medically stable for discharge Addendum - Attending - Attending Attestation Date/Time: 11/24/18 5570 I personally evaluated the patient and discussed the management with Dr. Reddy. I agree with the History, Examination, Assessment and Plan documented above with any addition or exceptions noted below. Patient denies concerns this morning. She reports ready "to go home" but admits she is not strong enough to go home and care for herself. Placement pending at [facility]. Continue current mgmt. Overall stable for discharge whenever placement arranged.
[2018-11-24] MEDS: Levothyroxine Sodium 125 MCG TAB PO SCH (06:32)
[2018-11-24] MEDS: Mometasone/Formoterol 120 PUFF INHALER INH SCH ×2 (07:22→19:47)
[2018-11-24] MEDS: PARoxetine 20 MG TAB PO SCH (07:49)
[2018-11-24] MEDS: Enoxaparin Sodium 40 MG/0.4 ML SYRINGE SC SCH (07:50)
[2018-11-24] MEDS: metFORMIN 500 MG TAB PO SCH (07:50)
[2018-11-24] MEDS: Multivitamin W/ Minerals 1 TAB PO SCH (07:50)
[2018-11-24] MEDS: Gabapentin 100 MG CAP PO SCH ×2 (07:50→19:56)
[2018-11-24] MEDS: Atorvastatin Calcium 10 MG TAB PO SCH (19:56)
[2018-11-25] MEDS: Levothyroxine Sodium 125 MCG TAB PO SCH (05:08)
--- NOTE | 2018-11-25 06:05 | PDOC.FM ---
- Subjective Subjective: No acute events overnight. No complaints. Patient resting comfortably and drinking coffee. She reports ambulating w/o walker. - Objective MAR Reviewed: Yes Vital Signs & Weight: Vital Signs (12 hours) Temp Pulse Resp BP Pulse Ox 11/24/18 19:55 98.0 F 72 18 143/86 H 96 11/24/18 19:47 75 16 96 11/24/18 19:41 96 Weight Admit Weight 47.627 kg Weight 47.627 kg I&O: 11/23/18 11/24/18 11/25/18 06:59 06:59 06:59 Intake Total 520 288 8357 Balance 456 612 6008 Result Diagrams: 11/21/18 12:17 11/25/18 04:46 Phys Exam - Physical Examination Constitutional: NAD Respiratory: wheezing present (diffuse inspiratory & expiratory wheezes b/l) Cardiovascular: RRR, no significant murmur Gastrointestinal: soft, non-tender Musculoskeletal: no edema, pulses present Dx/Plan (1) Hyponatremia with decreased serum osmolality Code(s): E87.1 - HYPO-OSMOLALITY AND HYPONATREMIA Status: Acute (2) (HFpEF) heart failure with preserved ejection fraction Code(s): I50.30 - UNSPECIFIED DIASTOLIC (CONGESTIVE) HEART FAILURE Status: Chronic (3) Anemia Code(s): D64.9 - ANEMIA, UNSPECIFIED Status: Chronic (4) Bipolar disorder Code(s): F31.9 - BIPOLAR DISORDER, UNSPECIFIED Status: Chronic (5) COPD (chronic obstructive pulmonary disease) Status: Chronic - Plan Plan: 68-F w/ Hx of HFpEF, COPD, Hypothyroidism, presented for weakness and hyponatremia: 1. Hyponatremia w/ decreased serum osm (calc) - Resolved. D/C'd IVF. Euvolemic on exam. - Uosm = 64, Usodium = 20, Serum osm calculated at 259. - likely 2/2 HCTZ (renal losses) vs "tea and toast" diet 2. Weakness, likely 2/2 poor PO intake - PT, OT consulted 3. Moderate protein-calorie malnutrition - give multivitamin and supplemental shakes BID. Will discharge on supplemental shakes. 4. COPD -Continue home inhalers 5. HTN -Continue home medication regimen, will hold HCTZ 6. Hypothyroidism - continue 125mcg synthroid 7. Schizoaffective disorder, bipolar - continue home medications 8. T2DM - Continue home meds. Ppx: Lovenox Dispo: Pending placement at [facility]. Otherwise, medically stable for discharge Addendum - Attending - Attending Attestation Date/Time: 11/25/18 0005 I personally evaluated the patient and discussed the management with Dr. Reddy. I agree with the History, Examination, Assessment and Plan documented above with any addition or exceptions noted below. Patient here for deconditioning, hyponatremia, and weakness. She is currently doing well. Awaiting placement and will be stable for discharge once that is arranged.
[2018-11-25 06:24] LABS: Anion Gap 10 mmol/L (10-20); BUN (Urea Nitrogen) 9 mg/dL (9.8-20.1); Calc. Creatinine Clearance 61 mL/min (70-130); Calcium 9.9 mg/dL (7.8-10.44); Carbon Dioxide 29 mmol/L (23-31); Chloride 100 mmol/L (98-107); Estimated GFR-MDRD 90; Glucose 81 mg/dL (80-115); Sodium 135 mmol/L (136-145)
[2018-11-25] MEDS: Mometasone/Formoterol 120 PUFF INHALER INH SCH ×2 (06:43→18:35)
[2018-11-25] MEDS: PARoxetine 20 MG TAB PO SCH (08:13)
[2018-11-25] MEDS: metFORMIN 500 MG TAB PO SCH (08:14)
[2018-11-25] MEDS: Gabapentin 100 MG CAP PO SCH ×2 (08:14→20:37)
[2018-11-25] MEDS: Enoxaparin Sodium 40 MG/0.4 ML SYRINGE SC SCH (08:15)
[2018-11-25] MEDS: Multivitamin W/ Minerals 1 TAB PO SCH (08:15)
[2018-11-25] MEDS: Atorvastatin Calcium 10 MG TAB PO SCH (20:37)
[2018-11-26] MEDS: Levothyroxine Sodium 125 MCG TAB PO SCH (05:18)
--- NOTE | 2018-11-26 05:25 | PDOC.FM ---
- Subjective Subjective: Patient resting comfortably this morning. No events overnight. Voices no complaints. She reports she has been able to ambulate without walker for short distances. She is still awaiting placement at [facility], likely later on today. - Objective MAR Reviewed: Yes Vital Signs & Weight: Vital Signs (12 hours) Temp Pulse Resp BP Pulse Ox 11/25/18 20:00 96 11/25/18 19:58 98.4 F 75 18 157/95 H 96 11/25/18 18:35 69 16 97 Weight Admit Weight 47.627 kg Weight 47.627 kg I&O: 11/24/18 11/25/18 11/26/18 06:59 06:59 06:59 Intake Total 960 2290 1320 Balance 960 2290 1320 Result Diagrams: 11/21/18 12:17 11/26/18 05:22 Phys Exam - Physical Examination Constitutional: NAD HEENT: PERRLA, moist MMs Neck: no JVD, supple Respiratory: no wheezing, no rhonchi, clear to auscultation bilateral Cardiovascular: RRR, no significant murmur Gastrointestinal: soft, non-tender, positive bowel sounds Musculoskeletal: no edema, pulses present Neurological: normal sensation, moves all 4 limbs Psychiatric: normal affect, A&O x 3 Skin: no rash, normal turgor Dx/Plan (1) Weakness Code(s): R53.1 - WEAKNESS Status: Acute (2) (HFpEF) heart failure with preserved ejection fraction Code(s): I50.30 - UNSPECIFIED DIASTOLIC (CONGESTIVE) HEART FAILURE Status: Chronic Qualifiers: Heart failure chronicity: chronic Qualified Code(s): I50.32 - Chronic diastolic (congestive) heart failure (3) Anemia Code(s): D64.9 - ANEMIA, UNSPECIFIED Status: Chronic Qualifiers: Anemia type: unspecified type Qualified Code(s): D64.9 - Anemia, unspecified (4) Bipolar disorder Code(s): F31.9 - BIPOLAR DISORDER, UNSPECIFIED Status: Chronic (5) COPD (chronic obstructive pulmonary disease) Status: Chronic Qualifiers: COPD type: unspecified COPD Qualified Code(s): J44.9 - Chronic obstructive pulmonary disease, unspecified (6) Hyponatremia with decreased serum osmolality Code(s): E87.1 - HYPO-OSMOLALITY AND HYPONATREMIA Status: Acute - Plan Plan: 68-F w/ Hx of HFpEF, COPD, Hypothyroidism, presented for weakness and hyponatremia: 1. Hyponatremia w/ decreased serum osm (calc) - Resolved. D/C'd IVF. Euvolemic on exam. - Uosm = 64, Usodium = 20, Serum osm calculated at 259. - likely 2/2 HCTZ (renal losses) vs "tea and toast" diet - Continue to monitor on AM BMP 2. Weakness, likely 2/2 poor PO intake - PT, OT consulted - Patient on Walking Program 3. Moderate protein-calorie malnutrition - give multivitamin and supplemental shakes BID. Will discharge on supplemental shakes. 4. COPD -Continue home inhalers 5. HTN -Continue home medication regimen, will hold HCTZ 6. Hypothyroidism - continue 125mcg synthroid 7. Schizoaffective disorder, bipolar - continue home medications 8. T2DM - Continue home meds. Diet: Regular Ppx: Lovenox Code status: DNR Dispo: Pending placement at [facility], anticipate later today or early tomorrow morning. Will talk with Case Management about her placement this morning. Otherwise, medically stable for discharge. Addendum - Attending - Attending Attestation Date/Time: 11/26/18 8454 I personally evaluated the patient and discussed the management with Dr. Brasher. I agree with the History, Examination, Assessment and Plan documented above with any addition or exceptions noted below. Patient overall stable. Awaiting placement decision. Follow up with CM as otherwise stable for discharge.
[2018-11-26 06:15] LABS: Anion Gap 12 mmol/L (10-20); BUN (Urea Nitrogen) 11 mg/dL (9.8-20.1); Calc. Creatinine Clearance 56 mL/min (70-130); Calcium 10.2 mg/dL (7.8-10.44); Carbon Dioxide 30 mmol/L (23-31); Chloride 98 mmol/L (98-107); Estimated GFR-MDRD 83; Glucose 96 mg/dL (80-115); Potassium 4.4 mmol/L (3.5-5.1); Sodium 136 mmol/L (136-145)
[2018-11-26] MEDS: Mometasone/Formoterol 120 PUFF INHALER INH SCH ×2 (07:13→19:00)
[2018-11-26] MEDS: PARoxetine 20 MG TAB PO SCH (07:51)
[2018-11-26] MEDS: Enoxaparin Sodium 40 MG/0.4 ML SYRINGE SC SCH (07:51)
[2018-11-26] MEDS: Multivitamin W/ Minerals 1 TAB PO SCH (07:52)
[2018-11-26] MEDS: Gabapentin 100 MG CAP PO SCH ×2 (07:52→19:56)
[2018-11-26] MEDS: metFORMIN 500 MG TAB PO SCH (07:52)
[2018-11-26] MEDS: Atorvastatin Calcium 10 MG TAB PO SCH (19:56)
[2018-11-27] MEDS: Levothyroxine Sodium 125 MCG TAB PO SCH (05:39)
--- NOTE | 2018-11-27 05:49 | PDOC.FM ---
- Subjective Subjective: Patient resting comfortably this morning, has no complaints. No events overnight. She is still awaiting placement at [facility]. Spoke to Case Management yesterday afternoon and insurance had still not given approval. CM anticipates should have approval later this morning. - Objective Vital Signs & Weight: Vital Signs (12 hours) Temp Pulse Resp BP Pulse Ox 11/26/18 20:00 94 L 11/26/18 19:35 98.9 F 75 16 153/86 H 94 L 11/26/18 19:00 73 16 97 Weight Admit Weight 47.627 kg Weight 47.627 kg I&O: 11/25/18 11/26/18 11/27/18 06:59 06:59 06:59 Intake Total 2290 2320 1210 Balance 2290 2320 1210 Result Diagrams: 11/21/18 12:17 11/26/18 05:22 Phys Exam - Physical Examination Constitutional: NAD HEENT: moist MMs EOMI Neck: no JVD, supple, full ROM Respiratory: no wheezing, clear to auscultation bilateral Cardiovascular: RRR, no significant murmur Gastrointestinal: soft, non-tender, positive bowel sounds Musculoskeletal: no edema, pulses present Neurological: normal sensation, moves all 4 limbs Psychiatric: normal affect, A&O x 3 Skin: no rash, normal turgor Dx/Plan (1) Weakness Code(s): R53.1 - WEAKNESS Status: Acute (2) (HFpEF) heart failure with preserved ejection fraction Code(s): I50.30 - UNSPECIFIED DIASTOLIC (CONGESTIVE) HEART FAILURE Status: Chronic Qualifiers: Heart failure chronicity: chronic Qualified Code(s): I50.32 - Chronic diastolic (congestive) heart failure (3) Anemia Code(s): D64.9 - ANEMIA, UNSPECIFIED Status: Chronic Qualifiers: Anemia type: unspecified type Qualified Code(s): D64.9 - Anemia, unspecified (4) Bipolar disorder Code(s): F31.9 - BIPOLAR DISORDER, UNSPECIFIED Status: Chronic (5) COPD (chronic obstructive pulmonary disease) Status: Chronic Qualifiers: COPD type: unspecified COPD Qualified Code(s): J44.9 - Chronic obstructive pulmonary disease, unspecified (6) Hyponatremia with decreased serum osmolality Code(s): E87.1 - HYPO-OSMOLALITY AND HYPONATREMIA Status: Acute - Plan Plan: 68-F w/ Hx of HFpEF, COPD, Hypothyroidism, presented for weakness and hyponatremia: 1. Hyponatremia w/ decreased serum osm (calc)--Resolved - D/C'd IVF. Euvolemic on exam. - Uosm = 64, Usodium = 20, Serum osm calculated at 259. - likely 2/2 HCTZ (renal losses) vs "tea and toast" diet 2. Weakness, likely 2/2 poor PO intake--Improved - PT, OT consulted - Patient on Walking Program & reports being able to ambulate without walker/ cane 3. Moderate protein-calorie malnutrition - give multivitamin and supplemental shakes BID. Will discharge on supplemental shakes. 4. COPD -Continue home inhalers 5. HTN -Continue home medication regimen, will continue to hold HCTZ -BP has been variable during stay 6. Hypothyroidism - continue 125mcg synthroid 7. Schizoaffective disorder, bipolar - continue home medications 8. T2DM - Continue home meds. Diet: Regular Ppx: Lovenox Code status: DNR Dispo: Pending placement at [facility], anticipate later today. Will talk with Case Management again about her placement this morning. Otherwise, medically stable for discharge. Addendum - Attending - Attending Attestation Date/Time: 11/27/18 0524 I personally evaluated the patient and discussed the management with Dr. Brasher. I agree with the History, Examination, Assessment and Plan documented above with any addition or exceptions noted below. Patient doing well. Medically stable for discharge to SNF. Awaiting insurance authorization.
[2018-11-27] MEDS: Mometasone/Formoterol 120 PUFF INHALER INH SCH (06:39)
[2018-11-27 08:00] VITALS: BP 145/88; TEMP 98.6
[2018-11-27] MEDS: PARoxetine 20 MG TAB PO SCH (09:00)
[2018-11-27] MEDS: Gabapentin 100 MG CAP PO SCH (09:00)
[2018-11-27] MEDS: Multivitamin W/ Minerals 1 TAB PO SCH (09:00)
[2018-11-27] MEDS: metFORMIN 500 MG TAB PO SCH (09:01)
[2018-11-27] MEDS: Enoxaparin Sodium 40 MG/0.4 ML SYRINGE SC SCH (09:01)
[2018-11-27] MEDS ORDERED: Polyethylene Glycol 3350 17 GM Packet PO PRN (12:42)
--- NOTE | 2018-11-28 04:37 | DIS ---
DATE OF ADMISSION: 11/21/2018 DATE OF DISCHARGE: 11/27/2018 RESIDENT: Freida Brasher DO ADMITTING ATTENDING: Julio Cesar Rosas MD DISCHARGE ATTENDING: Alexandru Gould MD CONSULTS: None. PROCEDURES: None. PRIMARY DIAGNOSES: 1. Hyponatremia with decreased serum osmolality (calculated). 2. Weakness, likely secondary to poor p.o. intake. SECONDARY DIAGNOSES: 1. Moderate protein/calorie malnutrition. 2. Chronic obstructive pulmonary disease. 3. Hypertension. 4. Hypothyroidism. 5. Schizoaffective disorder. 6. Bipolar disorder. 7. Type 2 diabetes mellitus. DISCHARGE MEDICATIONS: 1. Acetaminophen 650 mg p.o. q.4 hours as needed. 2. Atorvastatin 10 mg p.o. at bedtime. 3. Folic acid 1 mg p.o. daily. 4. Gabapentin 100 mg p.o. b.i.d. 5. Hydrochlorothiazide 12.5 mg p.o. daily. 6. Synthroid 125 mcg p.o. daily. 7. Metformin 500 mg p.o. in the morning. 8. Dulera 200 mcg/5 mcg inhaler two puffs b.i.d. 9. Multivitamin 1 tablet p.o. daily. 10. Omeprazole 40 mg p.o. daily. 11. Paroxetine 10 mg p.o. in the morning. 12. MiraLAX 17 g p.o. daily as needed for constipation. 13. Spiriva 2 puffs in the morning. 14. Ziprasidone 80 mg p.o. b.i.d. DISCONTINUED MEDICATIONS: Lovenox 40 mg subcutaneous at 9:00 a.m. daily. HISTORY OF PRESENT ILLNESS/HOSPITAL COURSE: The patient presented to the [facility] ER for weakness and hyponatremia. She was discharged earlier in the week and had gone to live with Ct, who is the daughter of one of her friends. She had previously lived there for a couple of weeks. She reported to the ER physician that she had not eaten much at all and said she had access to food, but did not feel like cooking. She did eat some oatmeal and drinks water and soda, but irregularly. At that time, she denied any chest pain, shortness of breath, fever, or nausea. She additionally reported 2 episodes of watery loose stools over the previous day. It was decided to admit Mrs. Baldwin to the Medicine Service for further evaluation and workup. The patient was seen on the morning of November 22, 2018 by resident physician, Dr. Andersen. The patient reported she was feeling better and was less weak. She was consuming breakfast and urinating well. At that time, it was discussed with her about going to a nursing facility upon discharge and at that time mentioned [facility] as preferred facility. Her hyponatremia had almost resolved with sodium rising to 134. It is thought that her hyponatremia was likely due to a tea versus toast diet. The patient is on hydrochlorothiazide, which was held during this admission. However, it was questionable whether she was actually compliant with this medication prior to admission. PT and OT were consulted to evaluate and treat for weakness during her hospital stay. However, shortly after admission, the patient was independently walking around frequently in the hallways. Therefore , her walking program was canceled by PT. On November 23, the patient was deemed medically stable for discharge. However, insurance had not approved her transfer to [facility] at that time. The patient continued to do well throughout the following 4 days. Case management worked with the insurance company from November 23 to November 27 to gain approval for the patient's transfer to [facility]. Approval was given at 3:00 p.m. on November 27, 2018 and patient was subsequently discharged back to [facility] for further rehabilitation and to work with PT and OT at that facility. PERTINENT LABORATORY DATA: 1. Labs on November 21, admission labs: a. CBC; WBC 6.9, hemoglobin 13.4, hematocrit 39.6, platelets 310. b. Urine osmolality 64, urine sodium 20, urine potassium less than 10. c. CMP; sodium 125, potassium 3.2, chloride 92, carbon dioxide 23, BUN 5, creatinine 0.7, glucose 136, anion gap 13, calcium 10.0, total bilirubin 0.3, AST 21, ALT 25, alkaline phosphatase 237. 2. Labs on November 22: a. Free T4 1.66. b. CMP at 5:20 a.m.: Sodium 134, potassium 3.5, chloride 104, carbon dioxide 20, BUN 5, creatinine 0.72, glucose 83, calcium 9.9. c. BMP at 5:20 p.m.: Sodium 135, potassium 3.4, chloride 101, carbon dioxide 25, BUN 9, creatinine 0.65, glucose 79, calcium 9.7. 3. Labs on November 23: a. Sodium 136, potassium 4.3, chloride 103, carbon dioxide 24, anion gap 13 , BUN 10, creatinine 0.7, glucose 83, calcium 9.5. 4. Labs on November 24: a. BMP; sodium 134, potassium 4.2, chloride 101, carbon dioxide 27, BUN 11, creatinine 0.69, glucose 96, calcium 9.5. 5. Labs on November 25: a. BMP; sodium 135, potassium 4.0, chloride 100, carbon dioxide 29, BUN 9, creatinine 0.65, glucose 81, calcium 9.9. 6. Labs on November 26: a. BMP; sodium 136, potassium 4.4, chloride 98, carbon dioxide 30, BUN 11, creatinine 0.7, glucose 96, calcium 10.2. DISPOSITION: Stable, discharged back to half-way. DISCHARGE INSTRUCTIONS: 1. Location: [facility]. 2. Diet: Regular. 3. Activity: As tolerated. 4. Followup: With PCP, Pedrito Esposito MD at [facility] in 7 days. Job ID: [id number] [facility]
== END 2018-11-27 17:38 | DRG 641 ==
LOC: ERS 11:42 → T4-A 13:50
PROVIDERS: ADMIT Emergency Medicine; ATTEND Emergency Medicine
DX: E87.1 Hypo-osmolality and hyponatremia (principal); I50.32 Chronic diastolic (congestive) heart failure; E44.0 Moderate protein-calorie malnutrition; Z68.1 Body mass index [BMI] 19.9 or less, adult; F31.9 Bipolar disorder, unspecified; Z66 Do not resuscitate; E03.9 Hypothyroidism, unspecified; M19.90 Unspecified osteoarthritis, unspecified site; K21.9 Gastro-esophageal reflux disease without esophagitis; F17.210 Nicotine dependence, cigarettes, uncomplicated; J43.9 Emphysema, unspecified; I11.0 Hypertensive heart disease with heart failure; D64.9 Anemia, unspecified; E11.9 Type 2 diabetes mellitus without complications; Z88.8 Allergy status to other drugs, medicaments and biological substances; Z79.899 Other long term (current) drug therapy; Z79.84 Long term (current) use of oral hypoglycemic drugs; Z90.49 Acquired absence of other specified parts of digestive tract; Z98.51 Tubal ligation status; F25.9 Schizoaffective disorder, unspecified
CPT/HCPCS: 36415; 80048; 80053; 82436; 83935; 84133; 84300; 84439; 85025; 93005; J1650

== ENCOUNTER 2018-12-25 00:33 | Inpatient (IN) | payer MEDICARE, MEDICAID ==
[2018-12-25 01:20] LABS: #Basophils 0.1 thou/uL (0.0-0.2); #Eosinphils 0.1 thou/uL (0.0-0.7); #Lymphocytes 1.8 thou/uL (1.20-3.40); #Monocytes 0.9 thou/uL (0.11-0.59); #Neutrophils 11.5 thou/uL (1.40-6.50); %Basophils 0.6 % (0.0-1.0); %Eosinophils 0.7 % (0.0-10.0); %Lymphocytes 12.6 % (21.0-51.0); %Monocytes 6.2 % (0.0-10.0); Mean Corpuscular HGB CONC 34.7 g/dL (32.0-36.0); Mean Corpuscular Hemoglobin 31.9 pg (27.0-31.0); Mean Corpuscular Volume 92.1 fL (78.0-98.0); Mean Platelet Volume 6.2 fL (7.4-10.4); Platelet Count 326 thou/uL (130-400); RBC Distribution Width 15.2 % (11.5-14.5); Red Blood Cell (RBC) Count 3.75 mill/uL (4.20-5.40); White Blood Cell (WBC) Count 14.3 thou/uL (4.8-10.8)
[2018-12-25 01:33] LABS: Bacteria/HPF 2+ HPF (None Seen); Bilirubin Negative (Negative); Blood, Urine Negative (Negative); Clarity Turbid (Clear); Glucose, Urine (Dipstick) Normal (Negative); Leukocyte 500 Leu/uL (Negative); Nitrite 2+ (Negative); Protein, Urine (Dipstick) 10 mg/dL (Neg-Trace); Renal Epithelial 0-3 HPF (None Seen); Squamous Epithelial 0-3 HPF (0-3); Urobilinogen Normal mg/dL (Less than 2); WBC/HPF 21-50 HPF (0-3)
[2018-12-25 01:43] LABS: ALT (SGPT) 26 U/L (8-55); AST (SGOT) 20 U/L (5-34); Albumin 4.1 g/dL (3.4-4.8); Alkaline Phosphatase 206 U/L (40-150); Anion Gap 13 mmol/L (10-20); BUN (Urea Nitrogen) 5 mg/dL (9.8-20.1); Bilirubin, Total 0.5 mg/dL (0.2-1.2); Calc. Creatinine Clearance 0 mL/min (70-130); Calcium 9.9 mg/dL (7.8-10.44); Carbon Dioxide 23 mmol/L (23-31); Chloride 88 mmol/L (98-107); Estimated GFR-MDRD 79; Globulin 3.1 g/dL (2.4-3.5); Glucose 111 mg/dL (80-115); Potassium 3.1 mmol/L (3.5-5.1); Protein, Total 7.2 g/dL (6.0-8.3); Sodium 121 mmol/L (136-145)
[2018-12-25] MEDS ORDERED: cefTRIAXone\\ROCEPHIN 1 GM VIAL ONE (01:47)
[2018-12-25] MEDS ORDERED: Sodium Chloride 0.9% 1,000 ML IV SCH ×2 (02:15→12:53)
[2018-12-25] MEDS ORDERED: Ondansetron ODT 4 MG TAB PO PRN (02:43)
[2018-12-25] MEDS ORDERED: Ondansetron PF 4 MG/2 ML Vial IVP PRN (02:43)
[2018-12-25] MEDS ORDERED: Ondansetron PF 4 MG/2 ML Vial ONE (02:48)
[2018-12-25] MEDS ORDERED: Potassium Chloride 20 MEQ in Premix Bag 1 BAG IVPB SCH (03:00)
[2018-12-25 03:06] LABS: Anion Gap 12 mmol/L (10-20); BUN (Urea Nitrogen) 5 mg/dL (9.8-20.1); Calc. Creatinine Clearance 0 mL/min (70-130); Calcium 9.4 mg/dL (7.8-10.44); Carbon Dioxide 22 mmol/L (23-31); Chloride 89 mmol/L (98-107); Estimated GFR-MDRD 83; Glucose 109 mg/dL (80-115); Potassium 3.5 mmol/L (3.5-5.1)
[2018-12-25 03:16] LABS: Sodium 119 mmol/L (136-145)
[2018-12-25] MEDS ORDERED: Potassium Chloride 20 MEQ/100 ML PREMIX BAG ONE (04:54)
[2018-12-25 06:27] LABS: Anion Gap 10 mmol/L (10-20); BUN (Urea Nitrogen) 5 mg/dL (9.8-20.1); Calc. Creatinine Clearance 0 mL/min (70-130); Calcium 9.3 mg/dL (7.8-10.44); Carbon Dioxide 26 mmol/L (23-31); Chloride 92 mmol/L (98-107); Estimated GFR-MDRD 81; Glucose 103 mg/dL (80-115); Potassium 3.6 mmol/L (3.5-5.1); Sodium 124 mmol/L (136-145)
--- NOTE | 2018-12-25 09:04 | PDOC.FPRHP ---
- History of Present Illness Chief Complaint: vomiting History of Present Illness: 68yo F with recurrent episodes of hyponatremia presents via EMS for vomiting. Pt is very difficult historian at time of admission and much hx was gained through chart review. Currently she denies any problems but states she does " not feel good". States she has only been drinking one cup of water every day and has a couple of sodas as well. otherwise she has no complaints. Was recently admitted for hyponatremia. It was thought at that time to be 2/2 poor PO intake. Was DCd with sodium of 130. ED Course: 4mg zofran, NS, rocephin 1g - Allergies/Adverse Reactions Allergies Allergy/AdvReac Type Severity Reaction Status Date / Time alprazolam [From Xanax] Allergy Verified 11/21/18 15:49 buprenorphine Allergy Verified 11/21/18 15:49 divalproex sodium Allergy Verified 11/21/18 15:49 [From Depakote] ranitidine Allergy Verified 11/21/18 15:49 sertraline HCl [From Zoloft] Allergy Verified 11/21/18 15:49 trazodone Allergy Verified 11/21/18 15:49 varenicline tartrate Allergy Verified 11/21/18 15:49 [From Chantix] - Home Medications Medication Instructions Recorded Confirmed Type Folic Acid 1 mg PO DAILY 03/20/15 12/25/18 History Omeprazole 40 mg PO DAILY 09/24/16 12/25/18 History Ziprasidone HCl 80 mg PO BID 05/30/17 12/25/18 History Atorvastatin Calcium [Lipitor] 10 mg PO HS 03/29/18 12/25/18 History Mometasone/Formoterol [Dulera 200 2 inh INH BID 07/14/18 12/25/18 History mcg/5 mcg Inhaler] PARoxetine HCl [Paroxetine HCl] 10 mg PO QAM 07/14/18 12/25/18 History Tiotropium [place] [Spiriva] 2 inh INH QAM 07/14/18 12/25/18 History metFORMIN HCl [Metformin ER 500 mg PO QAM 07/14/18 12/25/18 History Gastric] Hydrochlorothiazide 12.5 mg PO DAILY #30 tab 07/17/18 12/25/18 Rx Gabapentin [Neurontin] 100 mg PO BID 11/19/18 12/25/18 History Levothyroxine Sodium [Synthroid] 125 mcg PO DAILY #30 tablet 11/20/18 12/25/18 Rx Acetaminophen [Tylenol Regular 650 mg PO Q4H PRN tab 11/27/18 Rx Strength] Multivitamin W/ Minerals 1 tab PO DAILY tab 11/27/18 Rx [Theragran M] Polyethylene Glycol 3350 [Miralax] 17 gm PO DAILYPRN PRN pk 11/27/18 Rx - History PMHx: COPD, HFpEF, Bipolar Disorder, Schizoaffective Disorder, Hypothyroidism, OA and GERD, DM PSHx: Unspecified Left Knee Surgery, cholecystectomy, FHx: non contributory Social: Tobacco Abuse (1 PPD), denies EtOH and Drug Abuse. - Review of Systems General: reports: fatigue. denies: fever/chills Eyes: denies: vision changes ENT: denies: nasal congestion, rhinorrhea Respiratory: reports: cough. denies: shortness of breath Cardiovascular: denies: chest pain, palpitation Gastrointestinal: reports: nausea, vomiting Skin: denies: lesions, jaundice Musculoskeletal: denies: pain, tenderness Neurological: denies: syncope, seizure Psychological: denies: anxiety, depression - Vital signs BP: 143/66, Pulse: 99, Resp: 18 (Non-Labored), Temp: 98.1 (Oral), Pain: 0, O2 sat: 95 on Room Air, Time: 12/25/2018 00:44. weight: 53kg - Physical Exam Constitutional: NAD, well developed HEENT: normocephalic and atraumatic, EOMI, conjunctiva clear, grossly normal vision, grossly normal hearing -HEENT: dry mucosal membranes Neck: trachea midline, no JVD Chest: no-tender to palpation, no lesions Heart: RRR, normal S1/S2 Lungs: CTAB, no respiratory distress, good air movement Abdomen: soft, bowel sounds present Musculoskeletal: normal structure, normal tone Neurological: no focal deficit, normal sensation Skin: no rash/lesions, good turgor, capillary refill <2 seconds Heme/Lymphatic: no purpura, no petechia Psychiatric: normal mood and affect -Psychiatric: poor recall FMR H&P: Results - Labs Result Diagrams: 12/25/18 01:13 12/25/18 10:17 Lab results: WBC 14.3 thou/uL (4.8-10.8) H 12/25/18 01:13 Hgb 12.0 g/dL (12.0-16.0) 12/25/18 01:13 Hct 34.5 % (36.0-47.0) L 12/25/18 01:13 MCV 92.1 fL (78.0-98.0) 12/25/18 01:13 Plt Count 326 thou/uL (130-400) 12/25/18 01:13 Neutrophils % 80.0 % (42.0-75.0) H 12/25/18 01:13 Sodium 124 mmol/L (136-145) L 12/25/18 05:57 Potassium 3.6 mmol/L (3.5-5.1) 12/25/18 05:57 Chloride 92 mmol/L (98-107) L 12/25/18 05:57 Carbon Dioxide 26 mmol/L (23-31) 12/25/18 05:57 BUN 5 mg/dL (9.8-20.1) L 12/25/18 05:57 Creatinine 0.71 mg/dL (0.6-1.1) 12/25/18 05:57 Glucose 103 mg/dL (80-115) 12/25/18 05:57 Calcium 9.3 mg/dL (7.8-10.44) 12/25/18 05:57 Total Bilirubin 0.5 mg/dL (0.2-1.2) 12/25/18 01:13 AST 20 U/L (5-34) 12/25/18 01:13 ALT 26 U/L (8-55) 12/25/18 01:13 Alkaline Phosphatase 206 U/L (40-150) H 12/25/18 01:13 Serum Total Protein 7.2 g/dL (6.0-8.3) 12/25/18 01:13 Albumin 4.1 g/dL (3.4-4.8) 12/25/18 01:13 Urine Ketones Negative mg/dL (Negative) 12/25/18 01:01 Urine Blood Negative (Negative) 12/25/18 01:01 Urine Nitrite 2+ (Negative) A 12/25/18 01:01 Ur Leukocyte Esterase 500 Jose M/uL (Negative) A 12/25/18 01:01 Urine RBC 11-20 HPF (0-3) A 12/25/18 01:01 Urine WBC 21-50 HPF (0-3) A 12/25/18 01:01 Ur Squamous Epith Cells 0-3 HPF (0-3) 12/25/18 01:01 Urine Bacteria 2+ HPF (None Seen) A 12/25/18 01:01 FMR H&P: A/P - Problem List (1) Sepsis Current Visit: Yes Status: Acute Code(s): A41.9 - SEPSIS, UNSPECIFIED ORGANISM (2) Hypokalemia Current Visit: No Status: Acute Code(s): E87.6 - HYPOKALEMIA (3) Hyponatremia Current Visit: No Status: Acute Code(s): E87.1 - HYPO-OSMOLALITY AND HYPONATREMIA (4) Urinary tract infection Current Visit: No Status: Acute (5) (HFpEF) heart failure with preserved ejection fraction Current Visit: No Status: Chronic Code(s): I50.30 - UNSPECIFIED DIASTOLIC ( CONGESTIVE) HEART FAILURE Qualifiers: Heart failure chronicity: chronic Qualified Code(s): I50.32 - Chronic diastolic (congestive) heart failure (6) Bipolar disorder Current Visit: No Status: Chronic Code(s): F31.9 - BIPOLAR DISORDER, UNSPECIFIED (7) COPD (chronic obstructive pulmonary disease) Current Visit: No Status: Chronic Qualifiers: COPD type: unspecified COPD Qualified Code(s): J44.9 - Chronic obstructive pulmonary disease, unspecified (8) Gastroesophageal reflux disease Current Visit: No Status: Chronic Code(s): K21.9 - GASTRO-ESOPHAGEAL REFLUX DISEASE WITHOUT ESOPHAGITIS (9) Osteoarthritis Current Visit: No Status: Chronic Code(s): M19.90 - UNSPECIFIED OSTEOARTHRITIS, UNSPECIFIED SITE (10) Schizoaffective disorder Current Visit: No Status: Chronic Code(s): F25.9 - SCHIZOAFFECTIVE DISORDER , UNSPECIFIED Qualifiers: Schizoaffective disorder type: bipolar Qualified Code(s): F25.0 - Schizoaffective disorder, bipolar type (11) Tobacco abuse Current Visit: No Status: Chronic Code(s): Z72.0 - TOBACCO USE - Plan Hypovolemic hyponatremia A- Pt is dry on exam. hx of hyponatremia 2/2 hypovolemia which responded well to fluid replacement. Nephro is consulted from ED, recommendations are appreciated P- will continue easy fluids, NS -BMP q4hr -goal of not increasing more than 10 in 24hrs -encourage PO intake -will draw Uosm, Brittany, Serum Osm from initial lab draws/urine Sepsis 2/2 UTI A- UA shows evidence for UTI. Pt meeting sirs criteria on admission by HR and WBC. Pt not in shock. s/p rocephin in ED P- continue rocephin -f/u BCx and UCx -LA for sepsis HFpEF A- does not appear to be in exacerbation on exam P- will be cautious with fluids Bipolar Disorder, Schizoaffective Disorder, Hypothyroidism, COPD, OA, GERD, DM -stable, continue home medications CODE: INTUBATE ONLY. Pt does not want chest compressions/defibrillation Addendum - Attending - Attending Attestation Date/Time: 12/25/18 8721 I personally evaluated the patient and discussed the management with Dr. Kunz I agree with the History, Examination, Assessment and Plan documented above with any addition or exceptions noted below. 68 yo female admitted with CC of vomiting found with marked hypovolemic hyponatremia she appears clinically volume depleted with marked skin tenting and is septic from presumed UTI. PMHX: COPD,Hypothyroidism, and Hypertension. Patient will be admitted for fluid replacement serial Na monitoring would hold any Diuretic, broad spectrum ABX started pending cultures results, Patient would benefit from more controlled living environment with respect to fluid intake as hers appear quite diminished and inadequate.
[2018-12-25] MEDS ORDERED: Dextrose 5% in Water 1,000 ML IV PRN (10:35)
[2018-12-25] MEDS ORDERED: Acetaminophen 325 MG TAB PO PRN (10:35)
[2018-12-25] MEDS ORDERED: Dextrose 50% Abboject 50 ML SYRINGE SLOW IVP PRN (10:35)
[2018-12-25] MEDS ORDERED: HumaLOG 300 UNITS/3 ML VIAL SC PRN (10:35)
[2018-12-25] MEDS ORDERED: Calcium Carbonate 500 MG ChewTAB PO PRN (10:35)
[2018-12-25 10:47] LABS: Anion Gap 11 mmol/L (10-20); BUN (Urea Nitrogen) 4 mg/dL (9.8-20.1); Calc. Creatinine Clearance 0 mL/min (70-130); Calcium 8.8 mg/dL (7.8-10.44); Carbon Dioxide 24 mmol/L (23-31); Chloride 93 mmol/L (98-107); Estimated GFR-MDRD 78; Glucose 175 mg/dL (80-115); Potassium 3.4 mmol/L (3.5-5.1); Sodium 125 mmol/L (136-145)
[2018-12-25 12:54] LABS: Hemoglobin A1c 5.9 % (4.0-6.0)
[2018-12-25] MEDS ORDERED: Potassium Chloride 20 MEQ TAB PO SCH ×2 (13:00→16:15)
--- NOTE | 2018-12-25 13:33 | CON ---
DATE OF CONSULTATION: REASON FOR CONSULTATION: Hyponatremia. HISTORY OF PRESENT ILLNESS: This is a very pleasant 68-year-old female, presented to the hospital with nausea and vomiting. The patient had noted a sodium of 124 this morning, earlier this morning was 121. The patient denies any nausea, vomiting, or chest pain. PAST MEDICAL HISTORY: Significant for GERD, hypertension, COPD, emphysema, scoliosis, small bowel obstruction, , cholecystectomy, , tubal ligation, left knee surgery. SOCIAL HISTORY: No alcohol or drug use. FAMILY HISTORY: Negative for ESRD. ALLERGIES: REVIEWED. HOME MEDICATIONS: List reviewed. REVIEW OF SYSTEMS: A 15-point review of systems was performed, negative except for positives noted above. GENERAL: HEAD: NECK: No swelling or lumps. NOSE: No epistaxis or discharge. EYES: No diplopia or pain. 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 NEUROPSYCHIATIC SYSTEMS: No suicidal ideation. No ideation. SKIN: Denies any rash or ulcer. CONSTITUTIONAL: No fever or chills. PHYSICAL EXAMINATION: CONSTITUTIONAL: The patient is awake and alert. VITAL SIGNS: Afebrile, pulse 75, breathing 16, blood pressure was 130/70. GENERAL APPEARANCE AND MENTAL STATUS: Fair. HEAD/NECK: Normocephalic. Atraumatic. EYES: EOMI. No deformity. EARS: Clear. No ulcers. NOSE: Intact. No lesions. MOUTH: Clear. No discharge. THROAT: Clear. No exudate. LUNGS: Clear. No crackles. CARDIAC: S1, S2. No rub. ABDOMEN: Benign. Bowel sounds positive. GENITALIA/RECTUM: Carroll absent. BACK/EXTREMITIES: Edema 0+. NEUROLOGICAL: Alert and motor intact. SKIN: LYMPHATICS: LABORATORY DATA: Reviewed. ASSESSMENT AND PLAN: Hyponatremia, most likely because of syndrome of inappropriate antidiuretic hormone secretion and vomiting. Recommend fluid restriction. Anemia, stable. Medication based on GFR appropriate. Job ID: [id number]
[2018-12-25 14:54] LABS: Anion Gap 14 mmol/L (10-20); BUN (Urea Nitrogen) 5 mg/dL (9.8-20.1); Calc. Creatinine Clearance 0 mL/min (70-130); Calcium 9.7 mg/dL (7.8-10.44); Carbon Dioxide 21 mmol/L (23-31); Chloride 97 mmol/L (98-107); Estimated GFR-MDRD 79; Glucose 72 mg/dL (80-115); Potassium 3.8 mmol/L (3.5-5.1); Sodium 128 mmol/L (136-145)
[2018-12-25 15:41] VITALS: BMI 21.5
[2018-12-25] MEDS: Nicotine 21 MG PATCH TD SCH (16:03)
[2018-12-25] MEDS: Ipratropium Bromide 2.5 ml Neb NEB SCH (18:49)
[2018-12-25] MEDS: Mometasone/Formoterol 120 PUFF INHALER INH SCH (18:51)
[2018-12-25 19:03] LABS: Anion Gap 10 mmol/L (10-20); BUN (Urea Nitrogen) 5 mg/dL (9.8-20.1); Calc. Creatinine Clearance 57 mL/min (70-130); Calcium 9.4 mg/dL (7.8-10.44); Carbon Dioxide 24 mmol/L (23-31); Chloride 99 mmol/L (98-107); Estimated GFR-MDRD 76; Glucose 143 mg/dL (80-115); Potassium 3.6 mmol/L (3.5-5.1); Sodium 129 mmol/L (136-145)
[2018-12-25] MEDS ORDERED: Atorvastatin Calcium 10 MG TAB PO SCH (21:00)
[2018-12-25] MEDS: Gabapentin 100 MG CAP PO SCH (21:55)
[2018-12-25 23:02] LABS: Anion Gap 9 mmol/L (10-20); BUN (Urea Nitrogen) 4 mg/dL (9.8-20.1); Calc. Creatinine Clearance 58 mL/min (70-130); Carbon Dioxide 25 mmol/L (23-31); Chloride 98 mmol/L (98-107); Estimated GFR-MDRD 79; Glucose 112 mg/dL (80-115); Potassium 3.8 mmol/L (3.5-5.1); Sodium 128 mmol/L (136-145)
[2018-12-26] MEDS: Ipratropium Bromide 2.5 ml Neb NEB SCH ×2 (00:09→08:20)
[2018-12-26] MEDS ORDERED: cefTRIAXone\\ROCEPHIN 1 GM in Sodium Chloride 0.9% 100 ML IVPB SCH (02:00)
[2018-12-26 04:57] LABS: #Basophils 0.1 thou/uL (0.0-0.2); #Eosinphils 0.2 thou/uL (0.0-0.7); #Lymphocytes 2.3 thou/uL (1.20-3.40); #Monocytes 0.8 thou/uL (0.11-0.59); #Neutrophils 6.6 thou/uL (1.40-6.50); %Basophils 0.5 % (0.0-1.0); %Monocytes 7.8 % (0.0-10.0); %Neutrophils 66.7 % (42.0-75.0); Hemoglobin 11.1 g/dL (12.0-16.0); Mean Corpuscular HGB CONC 32.9 g/dL (32.0-36.0); Mean Corpuscular Hemoglobin 30.8 pg (27.0-31.0); Mean Corpuscular Volume 93.6 fL (78.0-98.0); Mean Platelet Volume 6.3 fL (7.4-10.4); Platelet Count 268 thou/uL (130-400); RBC Distribution Width 15.4 % (11.5-14.5); Red Blood Cell (RBC) Count 3.61 mill/uL (4.20-5.40); White Blood Cell (WBC) Count 9.8 thou/uL (4.8-10.8)
[2018-12-26 05:17] LABS: Anion Gap 12 mmol/L (10-20); BUN (Urea Nitrogen) 4 mg/dL (9.8-20.1); Calc. Creatinine Clearance 57 mL/min (70-130); Calcium 9.2 mg/dL (7.8-10.44); Carbon Dioxide 21 mmol/L (23-31); Chloride 104 mmol/L (98-107); Estimated GFR-MDRD 76; Glucose 85 mg/dL (80-115); Potassium 4.1 mmol/L (3.5-5.1); Sodium 133 mmol/L (136-145)
[2018-12-26] MEDS ORDERED: Levothyroxine Sodium 125 MCG TAB PO SCH (06:00)
[2018-12-26] MEDS ORDERED: metFORMIN 500 MG TAB PO SCH (08:00)
[2018-12-26] MEDS: Mometasone/Formoterol 120 PUFF INHALER INH SCH (08:33)
[2018-12-26] MEDS: Gabapentin 100 MG CAP PO SCH (08:38)
[2018-12-26] MEDS ORDERED: Spiriva 18 MCG CAP (Box of 5 Caps) INH SCH (09:00)
[2018-12-26] MEDS ORDERED: Folic Acid 1 MG TAB PO SCH (09:00)
[2018-12-26] MEDS ORDERED: PARoxetine 20 MG TAB PO SCH (09:00)
[2018-12-26] MEDS ORDERED: Hydrochlorothiazide 25 MG TAB PO SCH (09:00)
[2018-12-26] MEDS: Nicotine 21 MG PATCH TD SCH (10:06)
--- NOTE | 2018-12-26 10:24 | PDOC.FM ---
- Subjective Subjective: Pt feeling well. A&O x3, and without complaint. Feels well enough to go home. No confusion/weakness. no fever/chills. - Objective Vital Signs & Weight: Vital Signs (12 hours) Temp Pulse Resp BP BP Pulse Ox 12/26/18 08:20 90 16 12/26/18 07:09 96 12/26/18 07:06 98.2 F 82 18 160/84 H 96 12/26/18 04:00 97.9 F 66 16 116/64 92 L 12/26/18 00:09 83 12 Weight Weight 53.479 kg Result Diagrams: 12/26/18 04:43 12/26/18 04:43 Phys Exam - Physical Examination Constitutional: NAD HEENT: moist MMs, sclera anicteric Neck: no JVD, supple Respiratory: no wheezing, clear to auscultation bilateral Cardiovascular: RRR, no significant murmur Gastrointestinal: soft, non-tender Musculoskeletal: pulses present Neurological: normal sensation Lymphatic: no nodes Psychiatric: normal affect, A&O x 3 Skin: no rash, normal turgor Dx/Plan (1) Sepsis Code(s): A41.9 - SEPSIS, UNSPECIFIED ORGANISM Status: Acute (2) Hypokalemia Code(s): E87.6 - HYPOKALEMIA Status: Acute (3) Hyponatremia Code(s): E87.1 - HYPO-OSMOLALITY AND HYPONATREMIA Status: Acute (4) Urinary tract infection Status: Acute (5) (HFpEF) heart failure with preserved ejection fraction Code(s): I50.30 - UNSPECIFIED DIASTOLIC (CONGESTIVE) HEART FAILURE Status: Chronic Qualifiers: Heart failure chronicity: chronic Qualified Code(s): I50.32 - Chronic diastolic (congestive) heart failure (6) Bipolar disorder Code(s): F31.9 - BIPOLAR DISORDER, UNSPECIFIED Status: Chronic (7) COPD (chronic obstructive pulmonary disease) Status: Chronic Qualifiers: COPD type: unspecified COPD Qualified Code(s): J44.9 - Chronic obstructive pulmonary disease, unspecified (8) Gastroesophageal reflux disease Code(s): K21.9 - GASTRO-ESOPHAGEAL REFLUX DISEASE WITHOUT ESOPHAGITIS Status: Chronic (9) Osteoarthritis Code(s): M19.90 - UNSPECIFIED OSTEOARTHRITIS, UNSPECIFIED SITE Status: Chronic (10) Schizoaffective disorder Code(s): F25.9 - SCHIZOAFFECTIVE DISORDER, UNSPECIFIED Status: Chronic Qualifiers: Schizoaffective disorder type: bipolar Qualified Code(s): F25.0 - Schizoaffective disorder, bipolar type (11) Tobacco abuse Code(s): Z72.0 - TOBACCO USE Status: Chronic - Plan Plan: Hypovolemic hyponatremia A- resolved to 133 on fluid repletion. P- ready for DC today -encourage PO intake SIRS + 2/2 dehydration A- Pt meeting sirs criteria on admission by HR and WBC. likely 2/2 dehydration and hemoconcentration. LA was unconcerning P- pt has been fluid repleted -will f/u on BCx and UCx to be sure UTI A- s/p 2 days of rocephin P- ready for DC -f/u UCx HFpEF A- does not appear to be in exacerbation on exam P- will be cautious with fluids Bipolar Disorder, Schizoaffective Disorder, Hypothyroidism, COPD, OA, GERD, DM -stable, continue home medications CODE: INTUBATE ONLY. Pt does not want chest compressions/defibrillation Addendum - Attending - Attending Attestation Date/Time: 12/26/18 9122 I personally evaluated the patient and discussed the management with Dr. Louis. I agree with the History, Examination, Assessment and Plan documented above with any addition or exceptions noted below. Stable for discharge.
[2018-12-26 11:54] VITALS: TEMP 97.7
--- NOTE | 2018-12-26 12:04 | PRG ---
DATE OF SERVICE: 12/26/2018 SUBJECTIVE: A 68-year-old female being seen for hyponatremia. The patient denies nausea, vomiting, or chest pain. OBJECTIVE: See above. The patient is awake and alert, in no acute distress. VITAL SIGNS: Afebrile, pulse 90, breathing 16, blood pressure 160/84. GENERAL APPEARANCE AND MENTAL STATUS: Fair. HEAD/NECK: Normocephalic. Atraumatic. EYES: EOMI. No deformity. EARS: Clear. No ulcers. NOSE: Intact. No lesions. MOUTH: Clear. No discharge. THROAT: Clear. No exudate. LUNGS: Clear. No crackles. CARDIAC: S1, S2. No rub. ABDOMEN: Benign. Bowel sounds positive. GENITALIA/RECTUM: Carroll absent. BACK/EXTREMITIES: Edema 0+. NEUROLOGICAL: Alert and motor intact. SKIN: LYMPHATICS: LABORATORY DATA: Labs are reviewed. ASSESSMENT AND PLAN: 1. Hyponatremia, resolved. 2. Hypertension, stable. 3. Anemia, stable. 4. Medication based on GFR appropriate. 5. Chronic kidney disease stage 2, stable. I will sign off. Please reconsult as needed. Job ID: [id number]
[2018-12-26 12:15] VITALS: BP 177/83
--- NOTE | 2018-12-27 03:56 | DIS ---
DATE OF ADMISSION: 12/25/2018 DATE OF DISCHARGE: 12/26/2018 ADMITTING ATTENDING: Angel Campos MD RESIDENT: Jorge Kunz MD CONSULTS: None. PROCEDURES: None. DISCHARGE MEDICATIONS: 1. Folic acid 1 mg p.o. daily. 2. Omeprazole 40 mg p.o. daily. 3. Ziprasidone 80 mg p.o. b.i.d. 4. Atorvastatin 10 mg p.o. at bedtime. 5. Paroxetine 10 mg p.o. q.a.m. 6. Metformin 500 mg p.o. q.a.m. 7. Tiotropium bromide (Spiriva) 2 inhales q.a.m. 8. Dulera two inhales b.i.d. 9. Gabapentin 100 mg p.o. b.i.d. 10. Levothyroxine 125 mcg p.o. daily. 11. Tylenol 650 mg p.o. q.4 hours p.r.n. 12. MiraLAX 17 g packet p.o. daily p.r.n. 13. Ibuprofen 500 mg p.o. p.r.n. 14. Amlodipine 5 mg p.o. daily. DISCONTINUED MEDICATIONS: Hydrochlorothiazide 12.5 mg p.o. daily. PRIMARY DIAGNOSIS: Hyponatremia secondary to hypovolemia. SECONDARY DIAGNOSES: Systemic inflammatory response syndrome positive secondary to dehydration, urinary tract infection, heart failure with preserved ejection fraction, bipolar disorder, schizoaffective disorder, hypothyroidism, chronic obstructive pulmonary disease, osteoarthritis, gastroesophageal reflux disease, diabetes mellitus. 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 Again on this admission, it was thought that the patient was hypovolemic as she appeared to be dry on presentation and reported only drinking one cup of water per day and so, the patient was placed on light fluids, normal saline at 75 mL per hour. This rate was eventually decreased and discontinued as patient responded very quickly to therapy and to prevent over-correction. The patient eventually reached sodium of 133, which was three point higher than her discharge value on last admission and patient was feeling much better. Her mental status additionally had improved and patient was back to baseline, alert and oriented x4 whereas on admission, she had some confusion, was not completely oriented. Hospitalization was also complicated for UTI, which was treated with two doses of IV Rocephin. The patient was SIRS positive on admission, but it was thought this was secondary to dehydration as patient's heart rate was increased and white blood cell count was increased, but her complete blood count indicated hemoconcentration and patient had lactic acid which was reassuring and no symptoms of UTI or systemic inflammatory reaction. Otherwise, chronic medical problems were treated with home medications except for hypertension. The patient was taken off hydrochlorothiazide so as to not exacerbate hyponatremia and place on amlodipine 5 mg. DISPOSITION: Stable. DISCHARGE INSTRUCTIONS: 1. Location: Home. 2. Activity: As tolerated. 3. Diet: Heart healthy. Patient instructed to drink more fluids. 4. Followup: Follow up with Dr. Esposito in 7 days. Job ID: [id number]
--- NOTE | 2018-12-28 06:51 | PQF ---
MAYELIN PARRISH GABRIEL MD [id number] EZIO DUBOSE [id number] CLINICAL DOCUMENTATION CLARIFICATION FORM: POST DISCHARGE Addendum to original discharge summary date: ____ Late entry note date: __ DATE: 12-28-2018 ATTN:Alan Moncada Please exercise your independent, professional judgment in responding to the clarification form. Clinical indicators are provided on the bottom of this form for your review Can you please specify whether SIADH is ruled in or ruled out during this encounter? Please check appropriate box(s) to clarify if the following diagnosis has been ruled in or ruled out: SIADH [ ] Ruled in diagnosis [ ] Continue to treat [ ] Resolved [ x ] Ruled out diagnosis [ ] Cannot rule out diagnosis [ ] Other diagnosis please specify: [ ] Unable to determine For continuity of documentation, please document condition throughout progress notes and discharge summary. Thank You. CLINICAL INDICATORS: HP 12/[address] Kunz recurrent episodes of hyponatremia HP 12/[address] Kunz cc of vomiting found with marked hypovolemic hyponatremia she appears clinically volume depleted with marked skin tenting Consult 12/[address] Martin hyponatremia most likely because of syndrome of inappropriate anti diuretic hormone DS 12/[address] Kunz Primary diagnosishyponatremia secondary to hypovolemia DS 12/[address] Kunz the patient was taken off hydrochlorothiazide so as to not exacerbate hyponatremia Laboratory: [id number],119,124,125,128,129 RISK FACTOR: HP Dr. Kunz- COPD HP Dr. Kunz-HfpEF HP Dr. Kunz-DM HP Dr. Kunz- UTI HP Dr. Kunz- poor PO intake DS Dr. 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 All Rights Reserved [email or web address] [not provided] MTDD
--- NOTE | 2018-12-28 06:54 | PQF ---
MAYELIN PARRISH GABRIEL MD [id number] EZIO DUBOSE [id number] CLINICAL DOCUMENTATION CLARIFICATION FORM: POST DISCHARGE Addendum to original discharge summary date: ____ Late entry note date: __ DATE: 12-28-2018 ATTN:Alan Moncada Please exercise your independent, professional judgment in responding to the clarification form. Clinical indicators are provided on the bottom of this form for your review Can you please specify whether Sepsis is ruled in or ruled out during this encounter? Please check appropriate box(s) to clarify if the following diagnosis has been ruled in or ruled out: Sepsis [ ] Ruled in diagnosis [ ] Continue to treat [ ] Resolved [ x ] Ruled out diagnosis [ ] Cannot rule out diagnosis [ ] Other diagnosis please specify: [ ] Unable to determine For continuity of documentation, please document condition throughout progress notes and discharge summary. Thank You. CLINICAL INDICATORS: HP 9/[address] Kunz Sepsis unspecified organism HP 12/[address] Kunz Hyponatremia HP 12/[address] Kunz UTI HP 12/[address] Kunz skin is tenting and is septic from presumed UTI DS 12/[address] Kunz Systemic inflammatory response syndrome DS 12/[address] Kunz patient herat rate was increase and WBC count was increased but her complete blood count indicated hemoconcentration and patient had lactic acid which was reassuring and no symptoms of UTI or systemic inflammatory reaction Microbiology: Urine culture: Escherichia coli RISK FACTOR: HP Dr. Kunz- COPD HP Dr. Kunz-HfpEF HP Dr. Kunz-DM HP Dr. Kunz- UTI TREATMENTS: JUN 23- Rocephin1 gm IV JUN 23- IV fluids Microbiology- Blood and urine culture (This form is maintained as a part of the permanent medical record) 2014 [employer]. All Rights Reserved [email or web address] [not provided] MTDD
== END 2018-12-26 11:56 | disposition home or self-care (01) | DRG 641 ==
LOC: ERS 00:33 → ERHOLD 03:53 → 2NO 15:09
PROVIDERS: ADMIT Hospitalist; ATTEND Hospitalist
DX: E87.1 Hypo-osmolality and hyponatremia (principal); I50.32 Chronic diastolic (congestive) heart failure; N39.0 Urinary tract infection, site not specified; R65.10 Systemic inflammatory response syndrome (SIRS) of non-infectious origin without acute organ dysfunction; E86.1 Hypovolemia; K21.9 Gastro-esophageal reflux disease without esophagitis; J43.9 Emphysema, unspecified; M41.9 Scoliosis, unspecified; F41.9 Anxiety disorder, unspecified; F31.9 Bipolar disorder, unspecified; F20.9 Schizophrenia, unspecified; D64.9 Anemia, unspecified; I11.0 Hypertensive heart disease with heart failure; F17.210 Nicotine dependence, cigarettes, uncomplicated; M19.90 Unspecified osteoarthritis, unspecified site; E11.9 Type 2 diabetes mellitus without complications; E87.6 Hypokalemia; E86.0 Dehydration; Z88.8 Allergy status to other drugs, medicaments and biological substances; Z79.84 Long term (current) use of oral hypoglycemic drugs; Z90.49 Acquired absence of other specified parts of digestive tract; Z98.51 Tubal ligation status
CPT/HCPCS: 36415; 36416; 51701; 80048; 80053; 81003; 81015; 83036; 83605; 83930; 83935; 84300; 84443; 85025; 87040; 87077; 87086; 87186; 94640; 96365; 96375; 99406; A4353; J0696; J2405; J3480; J3490

== ENCOUNTER 2019-01-01 21:15 | Emergency (ER) | payer MEDICARE, MEDICAID ==
--- NOTE | 2019-01-01 22:32 | RAD ---
EXAM: Single view of the chest HISTORY: Cough COMPARISON: 11/18/2018 FINDINGS: Single view of the chest shows a normal sized cardiomediastinal silhouette. There is no sung dence of consolidation, mass, or pleural effusion. The bones are unremarkable. IMPRESSION: No evidence of acute cardiopulmonary disease
[2019-01-01 22:36] LABS: #Basophils 0.1 thou/uL (0.0-0.2); #Eosinphils 0.1 thou/uL (0.0-0.7); #Lymphocytes 2.2 thou/uL (1.20-3.40); #Monocytes 0.6 thou/uL (0.11-0.59); #Neutrophils 8.4 thou/uL (1.40-6.50); %Basophils 0.7 % (0.0-1.0); %Eosinophils 1.2 % (0.0-10.0); %Lymphocytes 19.2 % (21.0-51.0); %Monocytes 5.4 % (0.0-10.0); %Neutrophils 73.6 % (42.0-75.0); Hemoglobin 12.4 g/dL (12.0-16.0); Mean Corpuscular HGB CONC 34.7 g/dL (32.0-36.0); Mean Corpuscular Hemoglobin 32.6 pg (27.0-31.0); Mean Platelet Volume 6.3 fL (7.4-10.4); Platelet Count 412 thou/uL (130-400); RBC Distribution Width 15.2 % (11.5-14.5); White Blood Cell (WBC) Count 11.4 thou/uL (4.8-10.8)
[2019-01-01 22:59] LABS: ALT (SGPT) 14 U/L (8-55); AST (SGOT) 17 U/L (5-34); Acetaminophen Less than 6.0 mcg/mL (10.0-30.0); Albumin 4.2 g/dL (3.4-4.8); Alcohol Less than 10 mg/dL (Less than 10); Alkaline Phosphatase 167 U/L (40-150); Anion Gap 12 mmol/L (10-20); BUN (Urea Nitrogen) 6 mg/dL (9.8-20.1); Bilirubin, Total 0.4 mg/dL (0.2-1.2); CK (CPK) 256 U/L (29-168); Calc. Creatinine Clearance 0 mL/min (70-130); Carbon Dioxide 24 mmol/L (23-31); Chloride 99 mmol/L (98-107); Estimated GFR-MDRD 64; Globulin 3.2 g/dL (2.4-3.5); Glucose 94 mg/dL (80-115); Potassium 3.3 mmol/L (3.5-5.1); Protein, Total 7.4 g/dL (6.0-8.3); Salicylate Less than 8.0 mg/dL (15.0-30.0); Sodium 132 mmol/L (136-145)
[2019-01-01 23:04] LABS: Calcium 9.4 mg/dL (7.8-10.44)
[2019-01-01 23:37] LABS: Bilirubin Negative (Negative); Blood, Urine Negative (Negative); Clarity Clear (Clear); Glucose, Urine (Dipstick) Normal (Negative); Leukocyte Negative Leu/uL (Negative); Nitrite Negative (Negative); Protein, Urine (Dipstick) Negative (Neg-Trace); Urobilinogen Normal mg/dL (Less than 2)
[2019-01-01 23:59] LABS: Amphetamine Not Detected (NotDetected); Barbiturates Screen Not Detected (NotDetected); Benzodiazepine Screen Not Detected (NotDetected); Cocaine Metabolite Screen Not Detected (NotDetected); Medtox Control Line Valid? VALID (VALID); Medtox Reader # READER 4; Methadone Not Detected (NotDetected); Methamphetamine Not Detected (NotDetected); Opiate Screen Not Detected (NotDetected); Oxycodone Screen Not Detected (NotDetected); Phencyclidine (PCP) Not Detected (NotDetected); THC/Cannabinoid Screen Not Detected (NotDetected); Tricyclic Screen Not Detected (NotDetected)
--- NOTE | 2019-01-05 13:55 | EKG ---
Test Reason : PSYCH EVAL Blood Pressure : / mmHG Vent. Rate : 093 BPM Atrial Rate : 093 BPM P-R Int : 160 ms QRS Dur : 078 ms QT Int : 380 ms P-R-T Axes : 059 -27 057 degrees QTc Int : 472 ms Normal sinus rhythm Nonspecific T wave abnormality Prolonged QT Abnormal ECG Confirmed by JAYA BARNES, EDWIN ([id number]), social media editor GGOO WILSON ([id number]) on 01/05/2019 1:54:37 PM Referred By: Confirmed By:EDWIN LAKE MD
== END 2019-01-02 01:32 | disposition home or self-care (01) ==
LOC: ERS 21:15
DX: F20.0 Paranoid schizophrenia (principal); I10 Essential (primary) hypertension; J44.9 Chronic obstructive pulmonary disease, unspecified; K21.9 Gastro-esophageal reflux disease without esophagitis; F31.9 Bipolar disorder, unspecified; F41.9 Anxiety disorder, unspecified; F25.9 Schizoaffective disorder, unspecified; F17.210 Nicotine dependence, cigarettes, uncomplicated; Z87.01 Personal history of pneumonia (recurrent); Z79.899 Other long term (current) drug therapy
CPT/HCPCS: 51701; 71045; 80053; 80306; 80307; 81003; 82550; 84443; 85025; 93005; 96360; 96361; A4353

== ENCOUNTER 2019-01-12 09:40 | Observation (INO) | payer MEDICARE, MEDICAID ==
[2019-01-12] MEDS ORDERED: Ondansetron PF 4 MG/2 ML Vial ONE (10:11)
[2019-01-12 10:40] LABS: #Eosinphils 0.1 thou/uL (0.0-0.7); #Lymphocytes 2.1 thou/uL (1.20-3.40); #Monocytes 0.4 thou/uL (0.11-0.59); #Neutrophils 4.6 thou/uL (1.40-6.50); %Basophils 0.6 % (0.0-1.0); %Eosinophils 0.7 % (0.0-10.0); %Lymphocytes 28.8 % (21.0-51.0); %Monocytes 5.8 % (0.0-10.0); %Neutrophils 64.1 % (42.0-75.0); Hemoglobin 12.8 g/dL (12.0-16.0); Mean Corpuscular HGB CONC 34.2 g/dL (32.0-36.0); Mean Corpuscular Hemoglobin 32.2 pg (27.0-31.0); Platelet Count 406 thou/uL (130-400); RBC Distribution Width 14.5 % (11.5-14.5); Red Blood Cell (RBC) Count 3.98 mill/uL (4.20-5.40); White Blood Cell (WBC) Count 7.1 thou/uL (4.8-10.8)
[2019-01-12 11:01] LABS: Albumin 4.1 g/dL (3.4-4.8); Anion Gap 15 mmol/L (10-20); BUN (Urea Nitrogen) 7 mg/dL (9.8-20.1); Bilirubin, Total 0.4 mg/dL (0.2-1.2); Calc. Creatinine Clearance 0 mL/min (70-130); Calcium 9.2 mg/dL (7.8-10.44); Carbon Dioxide 20 mmol/L (23-31); Chloride 91 mmol/L (98-107); Estimated GFR-MDRD 70; Globulin 3.5 g/dL (2.4-3.5); Glucose 123 mg/dL (80-115); Potassium 4.1 mmol/L (3.5-5.1); Protein, Total 7.6 g/dL (6.0-8.3); Sodium 122 mmol/L (136-145)
[2019-01-12 11:02] LABS: ALT (SGPT) 16 U/L (8-55); AST (SGOT) 22 U/L (5-34); Alcohol Less than 10 mg/dL (Less than 10); Alkaline Phosphatase 168 U/L (40-110); Lipase 15 U/L (8-78); Salicylate Less than 8.0 mg/dL (15.0-30.0)
[2019-01-12 13:10] LABS: Bilirubin Negative (Negative); Blood, Urine Negative (Negative); Clarity Clear (Clear); Glucose, Urine (Dipstick) Normal (Negative); Leukocyte Negative Leu/uL (Negative); Nitrite Negative (Negative); Protein, Urine (Dipstick) Negative (Neg-Trace); Urobilinogen Normal mg/dL (Less than 2)
[2019-01-12 13:19] LABS: Amphetamine Not Detected (NotDetected); Barbiturates Screen Not Detected (NotDetected); Benzodiazepine Screen Not Detected (NotDetected); Cocaine Metabolite Screen Not Detected (NotDetected); Medtox Control Line Valid? VALID (VALID); Medtox Reader # READER 1; Methadone Not Detected (NotDetected); Methamphetamine Not Detected (NotDetected); Opiate Screen Not Detected (NotDetected); Oxycodone Screen Not Detected (NotDetected); Phencyclidine (PCP) Not Detected (NotDetected); THC/Cannabinoid Screen Not Detected (NotDetected); Tricyclic Screen Not Detected (NotDetected)
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
[2019-01-12] MEDS ORDERED: Ondansetron PF 4 MG/2 ML Vial IVP PRN (15:07)
[2019-01-12] MEDS ORDERED: Acetaminophen 325 MG TAB PO PRN (15:07)
[2019-01-12] MEDS ORDERED: Ondansetron ODT 4 MG TAB PO PRN (15:07)
[2019-01-12 15:23] VITALS: BMI 19.6
[2019-01-12] MEDS ORDERED: Nicotine 14 MG PATCH TD SCH (16:00)
[2019-01-12 17:03] LABS: Anion Gap 14 mmol/L (10-20); BUN (Urea Nitrogen) 7 mg/dL (9.8-20.1); Calc. Creatinine Clearance 51 mL/min (70-130); Calcium 8.9 mg/dL (7.8-10.44); Carbon Dioxide 18 mmol/L (23-31); Chloride 96 mmol/L (98-107); Estimated GFR-MDRD 74; Glucose 76 mg/dL (80-115); Potassium 3.9 mmol/L (3.5-5.1); Sodium 124 mmol/L (136-145)
[2019-01-12] MEDS ORDERED: Ibuprofen 100 MG/5 ML UDCUP PO PRN (17:07)
[2019-01-12] MEDS ORDERED: Sodium Chloride 0.9% 1,000 ML IV SCH (17:30)
[2019-01-12 17:31] LABS: Magnesium 1.7 mg/dL (1.6-2.6); Phosphorus 3.3 mg/dL (2.3-4.7)
[2019-01-12] MEDS: Ipratropium Bromide 2.5 ml Neb NEB SCH (19:49)
[2019-01-12 20:38] LABS: Anion Gap 13 mmol/L (10-20); BUN (Urea Nitrogen) 7 mg/dL (9.8-20.1); Calc. Creatinine Clearance 47 mL/min (70-130); Calcium 8.6 mg/dL (7.8-10.44); Carbon Dioxide 18 mmol/L (23-31); Chloride 94 mmol/L (98-107); Estimated GFR-MDRD 68; Glucose 96 mg/dL (80-115); Potassium 3.7 mmol/L (3.5-5.1); Sodium 121 mmol/L (136-145)
[2019-01-12] MEDS: Gabapentin 100 MG CAP PO SCH (21:00)
[2019-01-12] MEDS: risperiDONE 0.25 MG TAB PO SCH (21:01)
[2019-01-12] MEDS: Sodium Chloride 1 GM TAB PO SCH (21:03)
[2019-01-13] MEDS: Ipratropium Bromide 2.5 ml Neb NEB SCH (01:02)
[2019-01-13 01:05] LABS: Anion Gap 11 mmol/L (10-20); BUN (Urea Nitrogen) 8 mg/dL (9.8-20.1); Calc. Creatinine Clearance 46 mL/min (70-130); Carbon Dioxide 21 mmol/L (23-31); Chloride 98 mmol/L (98-107); Estimated GFR-MDRD 67; Glucose 104 mg/dL (80-115); Potassium 3.9 mmol/L (3.5-5.1); Sodium 126 mmol/L (136-145)
[2019-01-13] MEDS ORDERED: Levothyroxine Sodium 125 MCG TAB PO SCH (06:00)
[2019-01-13 06:11] LABS: #Eosinphils 0.2 thou/uL (0.0-0.7); #Lymphocytes 2.4 thou/uL (1.20-3.40); #Monocytes 0.6 thou/uL (0.11-0.59); %Basophils 0.5 % (0.0-1.0); %Eosinophils 2.5 % (0.0-10.0); %Lymphocytes 32.5 % (21.0-51.0); %Monocytes 8.7 % (0.0-10.0); %Neutrophils 55.8 % (42.0-75.0); Hemoglobin 11.2 g/dL (12.0-16.0); Mean Corpuscular Hemoglobin 31.7 pg (27.0-31.0); Mean Corpuscular Volume 93.2 fL (78.0-98.0); Mean Platelet Volume 6.2 fL (7.4-10.4); Platelet Count 359 thou/uL (130-400); RBC Distribution Width 14.4 % (11.5-14.5); Red Blood Cell (RBC) Count 3.53 mill/uL (4.20-5.40); White Blood Cell (WBC) Count 7.2 thou/uL (4.8-10.8)
--- NOTE | 2019-01-13 06:25 | PDOC.FM ---
- Subjective Subjective: Pt reports she is "good" this morning. She wants to go home. She is aware of her fluid restriction and is respecting that. Denies n/v/fever/chills/pain. ERIKA JAMIL. - Objective MAR Reviewed: Yes Vital Signs & Weight: Vital Signs (12 hours) Temp Pulse Resp BP Pulse Ox 01/13/19 04:07 98.8 F 89 16 128/67 92 L 01/13/19 01:02 90 18 93 L 01/13/19 00:37 97.6 F 94 20 96/52 L 94 L 01/12/19 19:49 90 18 96 01/12/19 19:34 98.3 F 89 16 118/68 97 Weight Weight 47.174 kg I&O: 01/11/19 01/12/19 01/13/19 06:59 06:59 06:59 Intake Total 820 Output Total 1500 Balance -680 Result Diagrams: 01/13/19 05:29 01/13/19 05:29 Phys Exam - Physical Examination Constitutional: NAD Respiratory: no wheezing, clear to auscultation bilateral Cardiovascular: RRR, no significant murmur Gastrointestinal: soft, non-tender, no distention, positive bowel sounds Musculoskeletal: no edema, pulses present Psychiatric: A&O x 3 Dx/Plan (1) Hyponatremia with decreased serum osmolality Code(s): E87.1 - HYPO-OSMOLALITY AND HYPONATREMIA Status: Acute (2) Polypharmacy Code(s): Z79.899 - OTHER SENIOR CARE (CURRENT) DRUG THERAPY Status: Acute (3) Weakness Code(s): R53.1 - WEAKNESS Status: Acute (4) (HFpEF) heart failure with preserved ejection fraction Code(s): I50.30 - UNSPECIFIED DIASTOLIC (CONGESTIVE) HEART FAILURE Status: Chronic Qualifiers: Heart failure chronicity: chronic Qualified Code(s): I50.32 - Chronic diastolic (congestive) heart failure (5) Anemia Code(s): D64.9 - ANEMIA, UNSPECIFIED Status: Chronic Qualifiers: Anemia type: unspecified type Qualified Code(s): D64.9 - Anemia, unspecified (6) Bipolar disorder Code(s): F31.9 - BIPOLAR DISORDER, UNSPECIFIED Status: Chronic (7) COPD (chronic obstructive pulmonary disease) Status: Chronic Qualifiers: COPD type: unspecified COPD Qualified Code(s): J44.9 - Chronic obstructive pulmonary disease, unspecified (8) Hypertension Code(s): I10 - ESSENTIAL (PRIMARY) HYPERTENSION Status: Chronic (9) Hypothyroidism Code(s): E03.9 - HYPOTHYROIDISM, UNSPECIFIED Status: Chronic (10) Osteoarthritis Code(s): M19.90 - UNSPECIFIED OSTEOARTHRITIS, UNSPECIFIED SITE Status: Chronic (11) Schizoaffective disorder Code(s): F25.9 - SCHIZOAFFECTIVE DISORDER, UNSPECIFIED Status: Chronic Qualifiers: Schizoaffective disorder type: bipolar Qualified Code(s): F25.0 - Schizoaffective disorder, bipolar type (12) Psychogenic polydipsia Code(s): R63.1 - POLYDIPSIA; F54 - PSYCH & [employer] W DISORD OR DIS CLASSD ELSWHR Status: Suspected - Plan Plan: 68 yo F here for: Acute on chronic Hyponatremia 2/2 polygenic polydipsia. - initial Na 122, s/p 1L NS in the ED. - Today Na 126, rise of 4 in 24 hours - d/c bmp trends - continue salt tabs - Encourage PO intake, electrolyte-rich fluids, d/c IVF Generalized Weakness -Consult PT/OT Hypothyroidism -Continue home meds, f/u PCP COPD HTN Schizoaffective disorder, bipolar -Continue home inhalers & meds Dispo: Obs medical, likely d/c today Addendum - Attending - Attending Attestation Date/Time: 01/13/19 2419 I personally evaluated the patient and discussed the management with Dr. Reddy. I agree with the History, Examination, Assessment and Plan documented above with any addition or exceptions noted below. Patient here for hyponatremia acute on chronic. She has known history of psychogenic polydipsia, as well as hypothyroidism with noncompliance. She also has poor solute intake. Patient has been placed on fluid restriction with salt tabs to assist with solute repletion. Her sodium is uptrending and near her baseline. She should be stable for discharge this morning.
[2019-01-13 06:31] LABS: Anion Gap 12 mmol/L (10-20); BUN (Urea Nitrogen) 10 mg/dL (9.8-20.1); Calc. Creatinine Clearance 50 mL/min (70-130); Calcium 8.9 mg/dL (7.8-10.44); Carbon Dioxide 22 mmol/L (23-31); Chloride 96 mmol/L (98-107); Estimated GFR-MDRD 73; Glucose 90 mg/dL (80-115); Sodium 126 mmol/L (136-145)
[2019-01-13 07:56] VITALS: BP 129/80; TEMP 98.1
[2019-01-13] MEDS ORDERED: metFORMIN 500 MG TAB PO SCH (08:00)
[2019-01-13] MEDS: Gabapentin 100 MG CAP PO SCH (08:28)
[2019-01-13] MEDS: Sodium Chloride 1 GM TAB PO SCH (08:29)
[2019-01-13] MEDS: risperiDONE 0.25 MG TAB PO SCH (08:33)
[2019-01-13] MEDS ORDERED: PARoxetine 20 MG TAB PO SCH (09:00)
[2019-01-13] MEDS ORDERED: Folic Acid 1 MG TAB PO SCH (09:00)
== END 2019-01-13 10:30 | disposition home or self-care (01) ==
LOC: ERS 09:40 → 2SW 14:41
PROVIDERS: ADMIT Family Medicine; ATTEND Family Medicine
DX: R53.1 Weakness (principal); R63.1 Polydipsia; F54 Psychological and behavioral factors associated with disorders or diseases classified elsewhere; E87.1 Hypo-osmolality and hyponatremia; E03.9 Hypothyroidism, unspecified; J44.9 Chronic obstructive pulmonary disease, unspecified; I11.0 Hypertensive heart disease with heart failure; I50.32 Chronic diastolic (congestive) heart failure; F17.210 Nicotine dependence, cigarettes, uncomplicated; F25.0 Schizoaffective disorder, bipolar type; F32.9 Major depressive disorder, single episode, unspecified; D64.9 Anemia, unspecified; M19.90 Unspecified osteoarthritis, unspecified site; Z79.84 Long term (current) use of oral hypoglycemic drugs; Z79.899 Other long term (current) drug therapy; Z88.8 Allergy status to other drugs, medicaments and biological substances; Z91.19 Patient's noncompliance with other medical treatment and regimen
CPT/HCPCS: 80048 ×3; 80306; 80307; 81003; 83690; 83735; 83930; 83935; 84100; 84300; 84484; 85025; 93005; 94640 ×2; 96361; 96374; 97139 ×2; 99285; G0378 ×3; 36415; 80053; 84443; J2405

== ENCOUNTER 2019-02-22 09:20 | Emergency (ER) | payer MEDICARE, OTHER ==
[2019-02-22 10:40] LABS: #Basophils 0.1 thou/uL (0.0-0.2); #Eosinphils 0.2 thou/uL (0.0-0.7); #Lymphocytes 1.8 thou/uL (1.20-3.40); #Monocytes 0.8 thou/uL (0.11-0.59); #Neutrophils 4.7 thou/uL (1.40-6.50); %Basophils 0.8 % (0.0-1.0); %Eosinophils 2.3 % (0.0-10.0); %Monocytes 10.1 % (0.0-10.0); %Neutrophils 62.8 % (42.0-75.0); Hemoglobin 12.6 g/dL (12.0-16.0); Mean Corpuscular HGB CONC 32.7 g/dL (32.0-36.0); Mean Corpuscular Hemoglobin 30.7 pg (27.0-31.0); Mean Corpuscular Volume 93.7 fL (78.0-98.0); Mean Platelet Volume 6.7 fL (7.4-10.4); Platelet Count 323 thou/uL (130-400); RBC Distribution Width 14.2 % (11.5-14.5); White Blood Cell (WBC) Count 7.4 thou/uL (4.8-10.8)
[2019-02-22 10:54] LABS: ALT (SGPT) 35 U/L (8-55); AST (SGOT) 38 U/L (5-34); Albumin 3.8 g/dL (3.4-4.8); Alkaline Phosphatase 176 U/L (40-110); Anion Gap 13 mmol/L (10-20); BUN (Urea Nitrogen) 6 mg/dL (9.8-20.1); Bilirubin, Total 0.3 mg/dL (0.2-1.2); Calc. Creatinine Clearance 0 mL/min (70-130); Carbon Dioxide 25 mmol/L (23-31); Chloride 96 mmol/L (98-107); Estimated GFR-MDRD 85; Glucose 85 mg/dL (83-110); Potassium 3.7 mmol/L (3.5-5.1); Protein, Total 6.8 g/dL (6.0-8.3); Sodium 130 mmol/L (136-145)
--- NOTE | 2019-02-22 11:59 | RAD ---
EXAM: Single view of the chest HISTORY: Seizure COMPARISON: 01/01/2019 FINDINGS: Single view of the chest shows a normal sized cardiomediastinal silhouette. There is no sung dence of consolidation, mass, or pleural effusion. The bones are unremarkable. IMPRESSION: No evidence of acute cardiopulmonary disease
[2019-02-22 12:02] LABS: Bilirubin Negative (Negative); Blood, Urine Negative (Negative); Clarity Clear (Clear); Glucose, Urine (Dipstick) Normal (Negative); Leukocyte Negative Leu/uL (Negative); Nitrite Negative (Negative); Protein, Urine (Dipstick) 30 mg/dL (Neg-Trace); RBC/HPF 0-3 HPF (0-3); Squamous Epithelial 0-3 HPF (0-3); Urobilinogen Normal mg/dL (Less than 2); WBC/HPF 0-3 HPF (0-3)
[2019-02-22 12:03] LABS: Bacteria/HPF 1+ HPF (None Seen)
--- NOTE | 2019-02-22 12:15 | CT ---
CT Brain WO Con HISTORY: Altered mental status. First-time seizure. COMPARISON: 06/12/2012 exam. FINDINGS: There is generalized ventricular and sulcal prominence. There is decreased attenuation to t he periventricular white matter consistent with chronic white matter change. There are no signs of intracerebral hemorrhage or extra-axial fluid collections. The mastoid air cells and visualized sinuses are clear. IMPRESSION: No acute intracranial abnormalities.
== END 2019-02-22 13:46 | disposition home or self-care (01) ==
LOC: ERS 09:20
DX: R55 Syncope and collapse (principal); L08.9 Local infection of the skin and subcutaneous tissue, unspecified; I10 Essential (primary) hypertension; K21.9 Gastro-esophageal reflux disease without esophagitis; F41.9 Anxiety disorder, unspecified; F31.9 Bipolar disorder, unspecified; F20.9 Schizophrenia, unspecified; F17.210 Nicotine dependence, cigarettes, uncomplicated; Z79.84 Long term (current) use of oral hypoglycemic drugs; Z71.6 Tobacco abuse counseling; Z79.899 Other long term (current) drug therapy
CPT/HCPCS: 36415; 70450; 71045; 80053; 81003; 81015; 84146; 85025; 87086; 93005; 96360

== ENCOUNTER 2019-06-18 13:39 | Outpatient (CLI) | payer MEDICARE, MEDICAID ==
--- NOTE | 2019-06-18 14:18 | MMO ---
Bilateral MAMMO Bilat Screen [facility]. CLINICAL HISTORY: Patient is 69 years old and is seen for screening. The patient has the following family history of breast cancer: sister. The patient has no personal history of cancer. VIEWS: The views performed were: bilateral craniocaudal with tomosynthesis and bilateral mediolateral oblique with tomosynthesis. FILMS COMPARED: The present examination has been compared to prior imaging studies performed at [facility] on 03/16/2010, and at [facility] on 12/24/2014 and 09/28/2017. This study has been interpreted with the assistance of computer-aided detection. MAMMOGRAM FINDINGS: The breasts are heterogeneously dense, which could obscure a lesion on mammography. There is a new focal asymmetry seen in the lower-inner region of the right breast. In the left breast, there are no suspicious masses, calcifications or areas of architectural distortion. IMPRESSION: NEW FOCAL ASYMMETRY IN THE RIGHT BREAST REQUIRES ADDITIONAL EVALUATION. RECOMMEND DIAGNOSTIC MAMMOGRAM. THE RESULTS OF THIS EXAM WERE SENT TO THE PATIENT. ACR BI-RADS Category 0 - Incomplete: Need additional imaging evaluation. [facility] will notify the patient of the need for additional imaging services. MAMMOGRAPHY NOTE: 1. A negative mammogram report should not delay a biopsy if a dominant of clinically suspicious mass is present. 2. Approximately 10% to 15% of breast cancers are not detected by mammography. 3. Adenosis and dense breasts may obscure an underlying neoplasm. Reported by: SAROJ RASCON MD Electonically Signed: [id number]
== END 2019-06-18 13:40 | disposition home or self-care (01) ==
LOC: BICMAMMO 13:39
PROVIDERS: ATTEND Family Medicine
DX: Z12.31 Encounter for screening mammogram for malignant neoplasm of breast (principal); N64.89 Other specified disorders of breast
CPT/HCPCS: 77063; 77067

== ENCOUNTER 2019-06-24 13:54 | Outpatient (CLI) | payer MEDICARE, MEDICAID ==
--- NOTE | 2019-06-24 14:33 | MMO ---
Right Breast MAMMO Unilat Diag [facility]DI [facility]JOVITA. CLINICAL HISTORY: Patient is 69 years old and is seen for additional evaluation requested at current screening. The patient has the following family history of breast cancer: sister. The patient has no personal history of cancer. VIEWS: The views performed were: right craniocaudal spot compression with tomosynthesis; right mediolateral oblique spot compression with tomosynthesis; and right mediolateral with tomosynthesis. FILMS COMPARED: The present examination has been compared to prior imaging studies performed at [facility] on 03/16/2010, and at [facility] on 12/24/2014, 09/28/2017 and 06/18/2019. This study has been interpreted with the assistance of computer-aided detection. MAMMOGRAM FINDINGS: The breast is heterogeneously dense, which could obscure a lesion on mammography. The questionable asymmetric density did not persist with the additional views. There are no suspicious masses, suspicious calcifications, or new areas of architectural distortion. IMPRESSION: THERE IS NO MAMMOGRAPHIC EVIDENCE OF MALIGNANCY. THE QUESTIONABLE ASYMMETRIC DENSITY DID NOT PERSIST WITH THE ADDITIONAL VIEWS. A ROUTINE FOLLOW-UP MAMMOGRAM IN 1 YEAR IS RECOMMENDED. THE RESULTS OF THIS EXAM WERE SENT TO THE PATIENT. ACR BI-RADS Category 2 - Benign finding MAMMOGRAPHY NOTE: 1. A negative mammogram report should not delay a biopsy if a dominant of clinically suspicious mass is present. 2. Approximately 10% to 15% of breast cancers are not detected by mammography. 3. Adenosis and dense breasts may obscure an underlying neoplasm. Reported by: ASUNCION CALDWELL MD Electonically Signed: [id number]
== END 2019-06-24 13:55 | disposition home or self-care (01) ==
LOC: BICMAMMO 13:54
PROVIDERS: ATTEND Family Medicine
DX: R92.2 Inconclusive mammogram (principal)
CPT/HCPCS: 77065; G0279